=== PATIENT | male | born 1940 | race Caucasian/White ===

== ENCOUNTER → 2017-04-24 | Outpatient (CLI) | payer OTHER ==
[~2017-04-24] MED LIST: ALL300 PO; ATEN50TA8 PO; LEVO100T48 PO; POTTAB2; RANI300T2 PO
== END | disposition home or self-care (01) ==
LOC: C.PATHSPEC 16:43
PROVIDERS: ATTEND Urology
DX: C67.9 Malignant neoplasm of bladder, unspecified (principal)

== ENCOUNTER → 2018-04-16 | Outpatient (CLI) | payer OTHER | END | disposition home or self-care (01) | LOC: C.LABSPEC 17:06 → C.PATHSPEC 17:09 | PROVIDERS: ATTEND Urology | DX: C67.9 Malignant neoplasm of bladder, unspecified (principal) ==

== ENCOUNTER 2021-12-02 10:31 | Inpatient (IN) ==
[2021-12-02] MEDS ORDERED: SODIUM CHLORIDE 0.9% 1000ML 500 ML IV ONE (10:47)
--- NOTE | 2021-12-02 10:49 | Emergency Department Note ---
Impression & Plan Acute cholecystitis, Abdominal pain, Leukocytosis ED Provider Note NAME: YANET ESTEVEZ AGE: 81 SEX: M : 1940 ARRIVES VIA: Walk-In INFORMANT: Patient ED PROVIDER(S): Chalo Boudreaux DO CHIEF COMPLAINT: abdominal pain HPI: Patient is an 81-year-old male with a past medical history of hypertension and bladder cancer that presents to the ER for epigastric abdominal pain which has been present since Sunday. He notes he has had this off and on previously. He was having some and vomiting. He has not really been able to eat since earlier this week. Has been keeping down some fluids. Denies any recorded fevers. Pain is about a 4 out of 10 and goes through to the back. No chest pain or shortness of breath. No dysuria, urgency, or frequency. He followed up with his PCP and had an ultrasound and blood work which showed retained stones in the duct per the patient. He was sent in for further evaluation by his PCP. ROS: See above HPI for pertinent positives & negatives. A total of 10 systems reviewed and were otherwise negative. PAST MEDICAL HISTORY:See Below PAST SURGICAL HISTORY:See Below FAMILY HISTORY:See Below SOCIAL HISTORY:See Below HOME MEDICATIONS:See Below ALLERGIES:See Below VITALS:See Below PHYSICAL EXAMINATION: GENERAL: Sitting up in bed, alert, well appearing, well nourished, no distress, non-toxic EYE EXAM: normal conjunctiva. OROPHARYNX: no exudate, no erythema, lips, buccal mucosa, and tongue normal and mucous membranes are moist NECK: supple, no nuchal rigidity, no adenopathy, non-tender LUNGS: Clear to auscultation. Normal chest wall mechanics HEART: no murmurs, S1 normal and S2 normal ABDOMEN: abdomen soft, non-tender, normo-active bowel sounds, no masses, no rebound or guarding. UPPER EXTREMITIES: upper extremities are grossly normal. LOWER EXTREMITIES: No pitting edema. NEURO EXAM: Normal sensorium, cranial nerves II-XII grossly intact, normal speech, no gross weakness of arms, no gross weakness of legs. MEDICAL DECISION MAKING: Patient is a 1-year-old male who presents ER for epigastric/right upper quadrant abdominal pain which is been present earlier this week. He was referred in by his PCP. IV was established blood work was obtained. Labs show mild leukocyto sis of nearly 13,000. No significant anemia. BMP with mild acute kidney injury with a creatinine 1.7 up from baseline of 1.5. LFTs were unremarkable. T bili slightly up at 1.6. Troponin negative and lipase unremarkable. UA was contaminated. Covid was negative. CT abdomen pelvis shows acute cholecystitis. He was updated bedside. Discussed with Homero Mooney recommended admission to medicine. Patient was given IV Rocephin. He was given IV Tylenol for pain admit to the hospitalist for GEN surge consult/OR. Patient was given IV fluids as well. Triage Nursing notes reviewed. Limited review of prior medical records performed Vital Signs: reviewed and remarkable for no significant abnormalities Differential diagnosis: Differential diagnoses includes but is not limited to gastritis, peptic ulcer disease, GERD, gallbladder disease, pancreatitis, small bowel obstruction, acute coronary syndrome, pericarditis, ischemic bowel, irritable bowel disease, irritable bowel syndrome, appendicitis, diverticulitis, malignancy, hernia, uri nary tract infection, torsion, [/ectopic (if female)], perforation, trauma, infectious. ER treatment provided: See below Diagnostics interpreted by me: ECG: [none] Cardiac Monitoring: An order was placed for continuous cardiac monitoring. The monitor shows a rate of 70 with sinus rhythm. Laboratory studies: As stated above and show below. Imaging studies: CT abdomen pelvis shows acute cholecystitis Consultation(s): Discussed with Keyur from general surgery who recommended admission to internal medicine Discussed with Prabha from [facility] service for admission Procedures: none Critical Care: None Past Med/Surg History Medical History Carcinoma of bladder Gout Hearing loss Peripheral vascular disease Venous thrombosis of lower extremity Surgical History H/O cystoscopy H/O sinus surgery History of inguinal hernia repair, bilateral History of nephrectomy, left Family History Unknown FHx: bladder cancer History of nephrolithiasis Cancer Social History Smoking Status: Never smoker Hx Alcohol Use: No Preferred Language: [place] marital status: current occupational status: retired Feels Safe at Home: Yes Allergies Allergies Allergy/AdvReac Type Severity Reaction Status Date / Time Cipro Allergy Unknown "EYES Verified 11/06/12 08:56 ITCHY AND BURNING" ciprofloxacin Allergy Unknown "EYES Verified 12/02/21 13:33 ITCHY AND BURNING" guaifenesin Allergy Unknown Verified 12/02/21 13:33 Penicillins Allergy Unknown Verified 12/02/21 13:33 pseudoephedrine Allergy Unknown Verified 12/02/21 13:33 Home Meds Home Medications Medication Instructions Recorded Confirmed allopurinol 300 mg tablet 300 mg PO QAM 03/04/20 12/02/21 atenolol 50 mg tablet 50 mg PO QAM 03/04/20 12/02/21 levothyroxine 112 mcg tablet 112 mcg PO QAM 03/04/20 12/02/21 (Levoxyl) pantoprazole 40 mg tablet,delayed 40 mg PO QAM 12/02/21 12/02/21 release Results & Data (ED) Vital Signs Vital Signs - 24 hr 12/02/21 10:32 12/02/21 10:47 12/02/21 12:32 Temperature 36.7 C Temperature Source Oral Pulse Rate 73 70 Pulse Rate [Finger] 78 67 Respiratory Rate 16 16 16 Blood Pressure 99/86 L Blood Pressure [Left Arm] 99/86 L 141/64 H Blood Pressure Mean 90 Blood Pressure Mean [Left Arm] 90 89 Pulse Oximetry 92 92 98 Oxygen Delivery Method Room Air Room Air Sepsis Recent Fever Within 48 Hours No Sepsis New/Unexplained Change in Mental Status No Sepsis Action Taken by Nursing No Action Required 12/02/21 14:00 Temperature Temperature Source Pulse Rate Pulse Rate [Finger] 70 Respiratory Rate 18 Blood Pressure Blood Pressure [Left Arm] 112/57 L Blood Pressure Mean Blood Pressure Mean [Left Arm] 75 Pulse Oximetry 97 Oxygen Delivery Method Sepsis Recent Fever Within 48 Hours Sepsis New/Unexplained Change in Mental Status Sepsis Action Taken by Nursing Laboratory Data Result diagrams: 12/02/21 11:05 12/02/21 11:05 Lab Results 12/02/21 12/02/21 12/02/21 Range/Units 11:05 11:05 11:05 WBC 12.95 H (4.8-10.8) K/uL RBC 5.22 (4.7-6.1) M/uL Hgb 15.2 (14.0-18.0) g/dL Hct 45.6 (42-52) % MCV 87.4 (80-100) fL MCH 29.1 (25-34) pg MCHC 33.3 (32-36) g/dL RDW Std Deviation 46.3 (36.4-46.3) fL RDW Coeff of Maude 14.5 (11.5-14.5) % Plt Count 117 L (130-400) K/uL MPV 10.4 (7.4-10.4) fL Immature Gran % (Auto) 0.2 % Neut % (Auto) 79.8 % Lymph % (Auto) 9.4 % [place] % (Auto) 10.1 % Eos % (Auto) 0.3 % Baso % (Auto) 0.2 % Neut # (Auto) 10.34 H (1.4-6.5) K/uL Lymph # (Auto) 1.22 (1.2-3.4) K/uL [place] # (Auto) 1.31 H (0.11-0.59) K/uL Eos # (Auto) 0.04 (0-0.5) K/uL Baso # (Auto) 0.02 (0-0.2) K/uL Immature Gran # (Auto) 0.02 (0.00-0.02) K/uL Sodium 138 (136-145) mmol/L Potassium 4.1 (3.5-5.1) mmol/L Chloride 102 (98-107) mmol/L Carbon Dioxide 28 (21-32) mmol/L Anion Gap 8 (3-11) BUN 25 H (6-23) mg/dl Creatinine 1.73 H (0.6-1.4) mg/dl Est Cr Clr Drug Dosing 35.1 ml/min Est GFR ( Amer) 42.0 ml/min Est GFR (Non-Af Amer) 36.2 ml/min BUN/Creatinine Ratio 14.5 (10-20) Glucose 112 H (70-99(Fasting)) mg/dl Calcium 9.3 (8.5-10.1) mg/dl Total Bilirubin 1.6 H (0.2-1.0) mg/dl AST 22 (13-39) U/L ALT 21 (7-52) U/L Alkaline Phosphatase 69 (34-104) U/L Troponin I (0-0.04) ng/ml Total Protein 6.8 (6.0-8.3) gm/dl Albumin 4.0 (3.4-5.0) gm/dl Globulin 2.8 (2.5-4.0) gm/dl Albumin/Globulin Ratio 1.4 (0.9-2) Lipase 18 (11-82) U/L Urine Color [place]ount Urine Appearance Clear (Clear) Urine pH 5.0 (4.5-7.5) Ur Specific [place] 1.021 (1.000-1.030) Urine Protein Trace H (Negative) Urine Glucose (UA) Negative (Negative) Urine Ketones Trace H (Negative) Urine Blood Negative (Negative) Urine Nitrite Negative (Negative) Urine Bilirubin 1+ H (Negative) Urine Urobilinogen Negative (Negative) Ur Leukocyte Esterase Trace H (Negative) Urine WBC (Auto) 1-5 (0-5) /hpf Urine RBC (Auto) 0-4 (0-4) /hpf U Hyaline Cast (Auto) 1-5 (0-5) /lpf U Epithel Cells (Auto) 10-20 H (0-5) /lpf Urine Bacteria (Auto) Negative (Negative) SARS-CoV-2, RNA, NAAT (NEGATIVE) 12/02/21 12/02/21 Range/Units 11:05 11:09 WBC (4.8-10.8) K/uL RBC (4.7-6.1) M/uL Hgb (14.0-18.0) g/dL Hct (42-52) % MCV (80-100) fL MCH (25-34) pg MCHC (32-36) g/dL RDW Std Deviation (36.4-46.3) fL RDW Coeff of Maude (11.5-14.5) % Plt Count (130-400) K/uL MPV (7.4-10.4) fL Immature Gran % (Auto) % Neut % (Auto) % Lymph % (Auto) % [place] % (Auto) % Eos % (Auto) % Baso % (Auto) % Neut # (Auto) (1.4-6.5) K/uL Lymph # (Auto) (1.2-3.4) K/uL [place] # (Auto) (0.11-0.59) K/uL Eos # (Auto) (0-0.5) K/uL Baso # (Auto) (0-0.2) K/uL Immature Gran # (Auto) (0.00-0.02) K/uL Sodium (136-145) mmol/L Potassium (3.5-5.1) mmol/L Chloride (98-107) mmol/L Carbon Dioxide (21-32) mmol/L Anion Gap (3-11) BUN (6-23) mg/dl Creatinine (0.6-1.4) mg/dl Est Cr Clr Drug Dosing ml/min Est GFR ( Amer) ml/min Est GFR (Non-Af Amer) ml/min BUN/Creatinine Ratio (10-20) Glucose (70-99(Fasting)) mg/dl Calcium (8.5-10.1) mg/dl Total Bilirubin (0.2-1.0) mg/dl AST (13-39) U/L ALT (7-52) U/L Alkaline Phosphatase (34-104) U/L Troponin I < 0.03 (0-0.04) ng/ml Total Protein (6.0-8.3) gm/dl Albumin (3.4-5.0) gm/dl Globulin (2.5-4.0) gm/dl Albumin/Globulin Ratio (0.9-2) Lipase (11-82) U/L Urine Color Urine Appearance (Clear) Urine pH (4.5-7.5) Ur Specific [place] (1.000-1.030) Urine Protein (Negative) Urine Glucose (UA) (Negative) Urine Ketones (Negative) Urine Blood (Negative) Urine Nitrite (Negative) Urine Bilirubin (Negative) Urine Urobilinogen (Negative) Ur Leukocyte Esterase (Negative) Urine WBC (Auto) (0-5) /hpf Urine RBC (Auto) (0-4) /hpf U Hyaline Cast (Auto) (0-5) /lpf U Epithel Cells (Auto) (0-5) /lpf Urine Bacteria (Auto) (Negative) SARS-CoV-2, RNA, NAAT NEGATIVE (NEGATIVE) Administered Medications Metronidazole (Flagyl) 500 mg in 100 mls @ 100 mls/hr IV Q8H NO Stop: 12/12/21 14:59 Last Admin: 12/02/21 14:45 Dose: 100 mls/hr Documented by: [id number] Discontinued Medications Acetaminophen (Acetaminophen 1000 Mg/100 Ml Iv) 1,000 mg IV NOW STA Stop: 12/02/21 13:45 Last Admin: 12/02/21 13:51 Dose: 1,000 mg Documented by: [id number] Sodium Chloride (Nss 1000ml) 500 mls @ 999 mls/hr IV .Q31M ONE Stop: 12/02/21 11:17 Last Infusion: 12/02/21 11:35 Dose: 0 mls/hr Documented by: [id number] Admin: 12/02/21 11:04 Dose: 999 mls/hr Documented by: [id number] Ceftriaxone Sodium (Rocephin) 1,000 mg in 50 mls @ 100 mls/hr IV NOW STA Stop: 12/02/21 13:28 Last Infusion: 12/02/21 13:51 Dose: 0 mls/hr Documented by: [id number] Admin: 12/02/21 13:04 Dose: 100 mls/hr Documented by: [id number] Imaging Data Radiologist's Impression: Abdomen/Pelvis CT 12/02/21 11:35 CT OF THE ABDOMEN AND PELVIS WITHOUT CONTRAST CLINICAL HISTORY: Epigastric pain. COMPARISON STUDY: CT of the chest, abdomen and pelvis November 29, 2009. TECHNIQUE: Axial images of the abdomen and pelvis were obtained without IV contrast. Images were reviewed in the axial, sagittal, and coronal planes. Automated exposure control was utilized for the study. A dose lowering technique was utilized adhering to the principles of ALARA. FINDINGS: Lung bases are unremarkable. A small hiatal hernia is present. No pneumatosis, free air or portal venous gas is present. Moderate pericholecystic infiltration is noted. Gallbladder is mildly distended. There is no biliary or pancreatic ductal dilatation. A punctate calcification within the pancreatic head is noted. No gas within the gallbladder wall is noted. Hepatic steatosis is noted. Unenhanced images of the spleen, adrenal glands and right kidney are unremarkable. Left kidney is not visualized. The appendix is normal. Colonic diverticulosis is noted without evidence acute diverticulitis. A portion of the sigmoid colon extends into a left inguinal hernia. Fat-containing right inguinal hernia is present. Prostate is enlarged, measuring 5.8 cm in transverse dimension. No abdominal or pelvic lymphadenopathy is present. No acute fracture or suspicious lesion within the visualized skeletal structures. IMPRESSION: Findings consistent with acute cholecystitis. Moderate perichole cystic infiltration. Surgical consultation is recommended. ACT 112: Negative or not required by law. Electronically signed by: Wing Cole M.D. 12/02/2021 12:26 PM Chest X-Ray 12/02/21 14:25 XR chest 1V portable CLINICAL HISTORY: Preoperative evaluation. COMPARISON STUDY: Chest radiograph November 06, 2012. FINDINGS: There is mild elevation of the right hemidiaphragm. Lungs are clear. There is no pneumothorax or pleural effusion. Cardiac size is at the upper limits of normal. Mediastinal contours are normal. There is no evidence for pulmonary edema. IMPRESSION: No acute cardiopulmonary findings. ACT 112: Negative or not required by law. Electronically signed by: Wing Cole M.D. 12/02/2021 2:49 PM Discharge Plan Visit Data Chief Complaint: Referred by Doctor Stated Complaint: DR PARIS CALLED, HAS GALLSTONES, BACK PAIN ED Provider: Chalo Boudreaux Discharge Problem: Acute cholecystitis, Abdominal pain, Leukocytosis Forms Stand Alone Forms: [facility] [employer] Prescriptions Prescriptions: No Action allopurinol 300 mg tablet 300 mg PO QAM RF: 0 atenolol 50 mg tablet 50 mg PO QAM RF: 0 levothyroxine [Levoxyl] 112 mcg tablet 112 mcg PO QAM RF: 0 pantoprazole 40 mg tablet,delayed release (DR/EC) 40 mg PO QAM RF: 0 Referrals Referrals: Keanu Paris DO [Primary Care Provider] - Discharge Problem: Abdominal pain Qualifiers: Abdominal location: unspecified location Qualified Code(s): R10.9 - Unspecified abdominal pain Leukocytosis Qualifiers: Leukocytosis type: unspecified Qualified Code(s): D72.829 - Elevated white blood cell count, unspecified
[2021-12-02 11:20] LABS: Basophils # (auto) 0.02 K/uL (0-0.2); Basophils % (auto) 0.2 %; Eosinophils # (auto) 0.04 K/uL (0-0.5); Eosinophils % (auto) 0.3 %; Hematocrit (blood only) 45.6 % (42-52); Hemoglobin 15.2 g/dL (14.0-18.0); Immature Granulocytes # (auto) 0.02 K/uL (0.00-0.02); Immature Granulocytes % (auto) 0.2 %; Lymphocytes # (auto) 1.22 K/uL (1.2-3.4); Lymphocytes % (auto) 9.4 %; Mean Corpuscular Hemoglobin 29.1 pg (25-34); Mean Corpuscular Hgb Conc 33.3 g/dL (32-36); Mean Corpuscular Volume 87.4 fL (80-100); Mean Platelet Volume 10.4 fL (7.4-10.4); Monocytes # (auto) 1.31 K/uL (0.11-0.59); Monocytes % (auto) 10.1 %; Neutrophils # (auto) 10.34 K/uL (1.4-6.5); Neutrophils % (auto) 79.8 %; Platelet Count 117 K/uL (130-400); RDW Coefficient of Variation 14.5 % (11.5-14.5); RDW Standard Deviation 46.3 fL (36.4-46.3); Red Blood Count 5.22 M/uL (4.7-6.1); White Blood Count 12.95 K/uL (4.8-10.8)
[2021-12-02 11:33] LABS: Appearance Urine Clear (Clear); Bacteria Urine Automated Negative (Negative); Blood Urine Negative (Negative); Color Urine Orange; Glucose Urine UA Negative (Negative); Ketones Urine Trace (Negative); Leukocyte Esterase Urine Trace (Negative); Nitrite Urine Negative (Negative); Protein Urine Trace (Negative); RBC Urine Automated 0-4 /hpf (0-4); Specific Gravity Urine 1.021 (1.000-1.030); Urobilinogen Urine Negative (Negative)
[2021-12-02 11:35] LABS: Bilirubin Urine 1+ (Negative)
[2021-12-02 11:51] LABS: Albumin Globulin Ratio 1.4 (0.9-2); BUN Creatinine Ratio 14.5 (10-20); Bilirubin,Total 1.6 mg/dl (0.2-1.0); Calcium 9.3 mg/dl (8.5-10.1); Creatinine Clr Calc Pharmacy 35.1 ml/min; Est GFR (Non-African American) 36.2 ml/min; Globulin 2.8 gm/dl (2.5-4.0); Potassium 4.1 mmol/L (3.5-5.1); Total Protein 6.8 gm/dl (6.0-8.3)
--- NOTE | 2021-12-02 12:27 | CT Scan Report ---
CT OF THE ABDOMEN AND PELVIS WITHOUT CONTRAST CLINICAL HISTORY: Epigastric pain. COMPARISON STUDY: CT of the chest, abdomen and pelvis November 29, 2009. TECHNIQUE: Axial images of the abdomen and pelvis were obtained without IV contrast. Images were revi ewed in the axial, sagittal, and coronal planes. Automated exposure control was utilized for the santana dy. A dose lowering technique was utilized adhering to the principles of ALARA. FINDINGS: Lung bases are unremarkable. A small hiatal hernia is present. No pneumatosis, free air or portal venous gas is present. Moderate pericholecystic infiltration is noted. Gallbladder is mildly d istended. There is no biliary or pancreatic ductal dilatation. A punctate calcification within the pa ncreatic head is noted. No gas within the gallbladder wall is noted. Hepatic steatosis is noted. Unen hanced images of the spleen, adrenal glands and right kidney are unremarkable. Left kidney is not vis ualized. The appendix is normal. Colonic diverticulosis is noted without evidence acute diverticuliti s. A portion of the sigmoid colon extends into a left inguinal hernia. Fat-containing right inguinal hernia is present. Prostate is enlarged, measuring 5.8 cm in transverse dimension. No abdominal or pe lvic lymphadenopathy is present. No acute fracture or suspicious lesion within the visualized skeleta l structures. IMPRESSION: Findings consistent with acute cholecystitis. Moderate pericholecystic infiltration. Rolf gical consultation is recommended. ACT 112: Negative or not required by law. Electronically signed by: Wing Cole M.D. 12/02/2021 12:26 PM
[2021-12-02] MEDS ORDERED: cefTRIAXone SODIUM 1,000 MG/50 ML BAG IV STA (12:59)
[2021-12-02] MEDS ORDERED: ACETAMINOPHEN 1000 MG/100 ML IV IV STA (13:44)
--- NOTE | 2021-12-02 14:28 | History & Physical Report ---
Date of Service December 02, 2021 Assessment & Plan (1) Acute cholecystitis: (2) Abdominal pain: (3) Hypertension: (4) History of bladder cancer: (5) Chronic idiopathic thrombocytopenia: (6) Hx of deep venous thrombosis: Plan: This is an 81-year-old male who has significant past medical history of HTN, HLD, hypothyroidism, CKD stage III, GERD, gout, history of ITP with chronic thrombocytopenia, history of DVT, history of bladder cancer status post removal who presents to ED secondary to off-and-on abdominal pain x1 week. Acute cholecystitis Abdominal pain admit to med tele consult surgery IV LR @ 125/hr antiemetics, analgesia IV Rocephin and IV flagyl - convert to po flagyl when able to tolerate po discussed with surgery who is recommending consult GI service No surgery today, will make npo after midnight HTN continue atenolol with parameters Chronic ITP plt stable, 117 monitor CKD-3 cr 1.75 baseline 1.6 gentle IVF, monitor avoid nephrotoxic agents DVT ppx/hx of DVT after bladder surgery: SCD/TEDS for now, post operatively initiate chemical ppx but monitor plts Dispo: medtele Full code PCP: [place] Pt was seen and examined in collaboration with Dr. Friend, please see addendum History of Present Illness Chief Complaint: Abdominal pain off and on x 1 week. Primary Care Provider: Keanu Paris, DO This is an 81-year-old male who has significant past medical history of HTN, HLD, hypothyroidism, CKD stage III, GERD, gout, history of ITP with chronic thrombocytopenia, history of DVT, history of bladder cancer status post removal who presents to ED secondary to off-and-on abdominal pain x1 week. He complains of right upper quadrant and epigastric abdominal pain that comes and goes, mostly after fatty meals. Pain radiates to the middle of his back and describes it as a, "stabbing," pain is worse. It is worse he rates pain as a 10 out of 10. Currently he is in 3 out of 10 pain. Pain typically will resolve on its own. Unfortunately he woke up this morning at approximately 3 AM with severe pain radiating to his back. He was nauseated and Had a few episodes of bilious vomiting. He has had poor intake for the past 2 days due to discomfort. He com plains of feeling chilled but denies any documented fever or sweats. He denies any lightheadedness, dizziness, chest pain, shortness of breath, cough, URI symptoms, diarrhea, melena, hematochezia, gloria colored stools. Despite H he is very active and still hunts and fishes. He admits to being able to ambulate 1 flight of stairs without getting short of breath or chest pain. In ED patient remained hemodynamically stable. CT abdomen pelvis confirmed acute cholecystitis. He did have elevated total bilirubin at 1.6 but otherwise LFTs WNL. His BUN/creatinine was 25 and 1.73. He saw PCP yesterday for above sx. Lab work was obtained which showed leukocytosis, US of abd revealed cholelithiasis and hepatic steatosis. CBD measured 4mm. Allergies Allergy/AdvReac Type Severity Reaction Status Date / Time Cipro Allergy Unknown "EYES Verified 11/06/12 08:56 ITCHY AND BURNING" ciprofloxacin Allergy Unknown "EYES Verified 12/02/21 13:33 ITCHY AND BURNING" guaifenesin Allergy Unknown Verified 12/02/21 13:33 Penicillins Allergy Unknown Verified 12/02/21 13:33 pseudoephedrine Allergy Unknown Verified 12/02/21 13:33 Home Medications Medication Instructions Recorded Confirmed Type allopurinol 300 mg tablet 300 mg PO QAM 03/04/20 12/02/21 History atenolol 50 mg tablet 50 mg PO QAM 03/04/20 12/02/21 History levothyroxine 112 mcg tablet 112 mcg PO QAM 03/04/20 12/02/21 History (Levoxyl) pantoprazole 40 mg tablet,delayed 40 mg PO QAM 12/02/21 12/02/21 History release Past Med/Surg History Medical History Carcinoma of bladder Gout Hearing loss Peripheral vascular disease Venous thrombosis of lower extremity Surgical History H/O cystoscopy H/O sinus surgery History of inguinal hernia repair, bilateral History of nephrectomy, left Family History Unknown FHx: bladder cancer History of nephrolithiasis Cancer Social History Smoking Status: Never smoker Hx Alcohol Use: No Hx Substance Use: No Preferred Language: Angolan Communication Ability: Effective Mobile Architect Required: No Beliefs That Will Affect Care: None marital status: Current Living Situation: Spouse and Family current occupational status: retired Other Information That Helps Us Care for You: No Feels Safe at Home: Yes Safety Concerns: Feels Safe At This Time Assistive Devices: Glasses Review of Systems Review of Systems: All systems reviewed & are unremarkable except as noted in HPI & below Physical Exam Physical Exam: Constitutional: WD/WN, vitals as above, NAD, sitting up in bed, pleasant, conversing easily Head: Normocephalic, Atraumatic Eyes: PERRL, conjunctivae normal, anicteric sclerae ENMT: external ear and nose normal, oropharynx normal Neck: trachea midline, no thyromegaly normal visual inspection Respiratory: normal respiratory effort, lungs clear to auscultation, no wheeze, rales, rhonchi. Normal insp/exp effort, no accessory muscle use Cardiovascular: RRR, no murmur, no edema Vessels: no JVD or carotid bruit Chest: normal inspection of chest Abdomen: normal bowel sounds, soft, tender RUQ, no hepatosplenomegaly Musculoskeletal: no cyanosis or clubbing, extremities motor strength 5/5 Skin: no rashes, warm and dry normal turgor Neurologic: PERRL, EOMI, accommodation nl, no face palsy, no dysarthria CN's II-XI intact bilaterally and moves all extremities Psychiatric: A+Ox3, euthymic affect Lymphatic: no cervical or axillary lymphadenopathy : deferred Results & Data Results & Data ([facility]) Vital Signs (Past 12 Hours) Vital Signs Temp Pulse Pulse Resp BP BP Pulse Ox 12/02/21 12:32 67 16 141/64 H 98 12/02/21 10:47 70 16 92 12/02/21 10:32 36.7 C 73 78 16 99/86 L 99/86 L 92 Diagnostic Findings Abdomen/Pelvis CT 12/02/21 11:35 CT OF THE ABDOMEN AND PELVIS WITHOUT CONTRAST CLINICAL HISTORY: Epigastric pain. COMPARISON STUDY: CT of the chest, abdomen and pelvis November 29, 2009. TECHNIQUE: Axial images of the abdomen and pelvis were obtained without IV contrast. Images were reviewed in the axial, sagittal, and coronal planes. Automated exposure control was utilized for the study. A dose lowering technique was utilized adhering to the principles of ALARA. FINDINGS: Lung bases are unremarkable. A small hiatal hernia is present. No pneumatosis, free air or portal venous gas is present. Moderate pericholecystic infiltration is noted. Gallbladder is mildly distended. There is no biliary or pancreatic ductal dilatation. A punctate calcification within the pancreatic head is noted. No gas within the gallbladder wall is noted. Hepatic steatosis is noted. Unenhanced images of the spleen, adrenal glands and right kidney are unremarkable. Left kidney is not visualized. The appendix is normal. Colonic diverticulosis is noted without evidence acute diverticulitis. A portion of the sigmoid colon extends into a left inguinal hernia. Fat-containing right inguinal hernia is present. Prostate is enlarged, measuring 5.8 cm in transverse dime nsion. No abdominal or pelvic lymphadenopathy is present. No acute fracture or suspicious lesion within the visualized skeletal structures. IMPRESSION: Findings consistent with acute cholecystitis. Moderate pericholecystic infiltration. Surgical consultation is recommended. ACT 112: Negative or not required by law. Electronically signed by: Wing Cole M.D. 12/02/2021 12:26 PM Medications Administered Medication List Discontinued Medications Acetaminophen (Acetaminophen 1000 Mg/100 Ml Iv) 1,000 mg IV NOW STA Stop: 12/02/21 13:45 Last Admin: 12/02/21 13:51 Dose: 1,000 mg Documented by: [id number] Sodium Chloride (Nss 1000ml) 500 mls @ 999 mls/hr IV .Q31M ONE Stop: 12/02/21 11:17 Last Infusion: 12/02/21 11:35 Dose: 0 mls/hr Documented by: [id number] Admin: 12/02/21 11:04 Dose: 999 mls/hr Documented by: [id number] Ceftriaxone Sodium (Rocephin) 1,000 mg in 50 mls @ 100 mls/hr IV NOW STA Stop: 12/02/21 13:28 Last Infusion: 12/02/21 13:51 Dose: 0 mls/hr Documented by: [id number] Admin: 12/02/21 13:04 Dose: 100 mls/hr Documented by: [id number] ECG Rate (beats per minute): 61 Rhythm: normal sinus Findings: + 1st degree AV block COVID-19 Results Results COVID-19 Adm Lab Results: RBC 5.22 M/uL (4.7-6.1) 12/02/21 WBC 12.95 K/uL (4.8-10.8) H 12/02/21 Hgb 15.2 g/dL (14.0-18.0) 12/02/21 Hct 45.6 % (42-52) 12/02/21 Plt Count 117 K/uL (130-400) L 12/02/21 Neutrophils (%) (Auto) 79.8 % 12/02/21 Lymphocytes (%) (Auto) 9.4 % 12/02/21 Monocytes # (Auto) 1.31 K/uL (0.11-0.59) H 12/02/21 Eosinophils # (Auto) 0.04 K/uL (0-0.5) 12/02/21 Immature Granulocyte % (Auto) 0.2 % 12/02/21 Neutrophils # (Auto) 10.34 K/uL (1.4-6.5) H 12/02/21 Lymphocytes # (Auto) 1.22 K/uL (1.2-3.4) 12/02/21 Monocytes # (Auto) 1.31 K/uL (0.11-0.59) H 12/02/21 Eosinophils # (Auto) 0.04 K/uL (0-0.5) 12/02/21 Basophils # (Auto) 0.02 K/uL (0-0.2) 12/02/21 Immature Granulocyte # (Auto) 0.02 K/uL (0.00-0.02) 12/02/21 Na 138 mmol/L (136-145) 12/02/21 K 4.1 mmol/L (3.5-5.1) 12/02/21 Cl 102 mmol/L (98-107) 12/02/21 CO2 28 mmol/L (21-32) 12/02/21 Anion Gap 8 (3-11) 12/02/21 BUN 25 mg/dl (6-23) H 12/02/21 Creatinine 1.73 mg/dl (0.6-1.4) H 12/02/21 BUN/Creatinine Ratio 14.5 (10-20) 12/02/21 Glucose Level 112 mg/dl (70-99(Fasting)) H 12/02/21 Ca 9.3 mg/dl (8.5-10.1) 12/02/21 Total Bilirubin 1.6 mg/dl (0.2-1.0) H 12/02/21 AST/SGOT 22 U/L (13-39) 12/02/21 ALT/SGPT 21 U/L (7-52) 12/02/21 Alkaline Phosphatase 69 U/L (34-104) 12/02/21 Total Protein 6.8 gm/dl (6.0-8.3) 12/02/21 Albumin 4.0 gm/dl (3.4-5.0) 12/02/21 Globulin 2.8 gm/dl (2.5-4.0) 12/02/21 Albumin/Globulin Ratio 1.4 (0.9-2) 12/02/21 Troponin I < 0.03 ng/ml (0-0.04) 12/02/21 SARS-CoV-2, RNA, NAAT NEGATIVE (NEGATIVE) 12/02/21 Chest X-Ray 12/02/21 Code Status & VTE Plan Code Status FULL CODE VTE Prophylaxis Plan VTE Prophylaxis will be ordered: Yes Supervising Physician Co-Signing Physician Notes Care coordinated with Prabha Simmons PA-C. Agree with above note. Patient seen and examined. Please refer to her notes for full details. Vital signs reviewed. Physical exam: General exam: Alert and oriented. Not in acute distress. CVS: S1 and S2 heard, regular rate and rhythm, no murmurs. RS: Clear to auscultation, no wheezing or crackles. ABD: Soft, bowel sounds present, mild epigastric tenderness?, no distention. RESEARCH LABORATORY SPECIALIST: Nonfocal. EXT: No edema, no erythema. Labs: Reviewed. Assessment and plan: 81M presents with week of on and off abdominal pain But last night got severe in epigastric region radiating to back associated with nausea. Denies fevers. No chest pain or sob. Hemodynamics stable. Imaging studies shows cholecystitis. Acute cholecystitis on iv rocephin, flagyl npo fluids pain control surgery and GI on board Surgery vs ercp based on mrcp results monitor in medical floor. HTN on atenolol will monitor Chronic ITI platelets 117 will monitor. Other diagnosis and plan of care as per Prabha Simmons PA-C. Sukhwinder schwab MD.
[2021-12-02] MEDS: metroNIDAZOLE 500 MG/100 ML BAG IV SCH ×2 (14:45→22:12)
--- NOTE | 2021-12-02 14:51 | XRay Report ---
XR chest 1V portable CLINICAL HISTORY: Preoperative evaluation. COMPARISON STUDY: Chest radiograph November 06, 2012. FINDINGS: There is mild elevation of the right hemidiaphragm. Lungs are clear. There is no pneumothor ax or pleural effusion. Cardiac size is at the upper limits of normal. Mediastinal contours are albert l. There is no evidence for pulmonary edema. IMPRESSION: No acute cardiopulmonary findings. ACT 112: Negative or not required by law. Electronically signed by: Wing Cole M.D. 12/02/2021 2:49 PM
--- NOTE | 2021-12-02 15:58 | Gastrointestinal Consultation ---
Date of Consultation December 02, 2021 Supervising Physician Co-Signing Physician Notes I performed a history and physical examination of the patient today, including specifically on physical exam - soft abdomen. I have discussed the patient's management with the advanced practitioner. Please refer to the nurse practitioner's note for the documented findings and plan of care. patient with gallstones and CT scan findings of acute cholecystitis, his AST/ALT are normal with no biliary ductal dilation. He is low probability for choledocholithiasis hence will obtain MRCP and follow up LFTs. If MRCP negative then should proceed with Lap elo tomorrow. If inconclusive then may add IOC intraoperatively. If LFTs rise or MRCP shows a choledocholithiasis then will arrange ERCP if needed. History of Present Illness Reason for Consultation: Acute cholecystitis, elevated Tbili Requesting Physician: Dr. Sukhwinder Friend Attending Physician: Dr. Darrion Matamoros History of Present Illness Pt is a 81 yo male, who was referred by his PCP (Dr. Paris) to the ED today for c/o epigastric abd pain symptoms. He reports the epigastric pain had been going on for few weeks but worsen in the last few days. Pain radiates straight to back. He does have the pain hours after eating. + nausea, no vomiting. He denies bowel habit changes. In the last 2 days had only been able to drink broth and water. Outpt eval showed normal LFTs initially and US w findings of gallstones, CBD of 4mm, hepatic steatosis. Labs today showed leukocytosis, LFTs showed elevated Tbili 1.6, AST/ALT 22/21, Alk phos 69. CT abd/pelvis wo contrast showed cholecystitis. ASSESSMENT/PLAN: Pt is a 81 yo male w symptoms of epigastric abd pain radiating to back, nausea wo vomiting found to have gallstones in outpt u/s and cholecystitis on today's non contrasted CT imaging. Tbili is elevated to 1.6 today w leukocytosis. - NPO - IVF support - IV antibiotics - Surgery consulted - Will discuss with Dr. Matamoros Allergies Allergy/AdvReac Type Severity Reaction Status Date / Time Cipro Allergy Unknown "EYES Verified 11/06/12 08:56 ITCHY AND BURNING" ciprofloxacin Allergy Unknown "EYES Verified 12/02/21 13:33 ITCHY AND BURNING" guaifenesin Allergy Unknown Verified 12/02/21 13:33 Penicillins Allergy Unknown Verified 12/02/21 13:33 pseudoephedrine Allergy Unknown Verified 12/02/21 13:33 Home Medications Medication Instructions Recorded Confirmed Type allopurinol 300 mg tablet 300 mg PO QAM 03/04/20 12/02/21 History atenolol 50 mg tablet 50 mg PO QAM 03/04/20 12/02/21 History levothyroxine 112 mcg tablet 112 mcg PO QAM 03/04/20 12/02/21 History (Levoxyl) pantoprazole 40 mg tablet,delayed 40 mg PO QAM 12/02/21 12/02/21 History release Patient History Medical History Carcinoma of bladder Gout Hearing loss Peripheral vascular disease Venous thrombosis of lower extremity Surgical History H/O cystoscopy H/O sinus surgery History of inguinal hernia repair, bilateral History of nephrectomy, left Family History Unknown FHx: bladder cancer History of nephrolithiasis Cancer Social History Smoking Status: Never smoker Hx Alcohol Use: No Hx Substance Use: No Preferred Language: [place] Citizen Communication Ability: Effective Ferris Wheel Operator Required: No Beliefs That Will Affect Care: None marital status: Current Living Situation: Spouse and Family current occupational status: retired Other Information That Helps Us Care for You: No Feels Safe at Home: Yes Safety Concerns: Feels Safe At This Time Assistive Devices: Glasses Review of Systems Review of Systems: All systems reviewed & are unremarkable except as noted in HPI & below Physical Exam Constitutional: WD/WN, vitals as above well groomed, cooperative and comfortable Eyes: PERRL, conjunctivae normal, anicteric sclerae ENMT: external ear and nose normal, oropharynx normal Respiratory: normal respiratory effort, lungs clear to auscultation Cardiovascular: RRR, no murmur, no edema Gastrointestinal (Abdomen): Soft, TTP epigastric, hyperactive BS Skin: no rashes, warm and dry no jaundice Psychiatric: A+Ox3, euthymic affect Lymphatic: no lymphedema Results & Data ([facility]) Vital Signs (Past 12 Hours) Vital Signs Temp Pulse Pulse Resp BP BP Pulse Ox 12/02/21 15:36 63 18 120/61 95 12/02/21 14:00 70 18 112/57 L 97 12/02/21 12:32 67 16 141/64 H 98 12/02/21 10:47 70 16 92 12/02/21 10:32 36.7 C 73 78 16 99/86 L 99/86 L 92
--- NOTE | 2021-12-02 16:06 | Surgery Consultation ---
Date of Consultation December 02, 2021 Assessment & Plan (1) Cholelithiasis: Symptoms more suggestive of choledocholithiasis. Equivocal CT findings for cholecystitis, mild WBC and bilirubin elevations. Trend LFTs overnight, consider GI eval. Anticipate cholecystectomy this admission, but eval further for ERCP vs IOC. Supervising Physician Co-Signing Physician Notes Patient seen and examined, labs and image reviewed, agree with above. 81-year-old male with several week history of epigastric pain that radiates to his back. This happens intermittently and seems to happen at night after eating. Had ultrasound which showed cholelithiasis with no cholecystitis and normal common bile duct. He did have slightly elevated WBC and total bilirubin. He was told to go to the ER for this. He had a CT scan which showed g allbladder distention with some inflammation concerning for cholecystitis. On exam he is afebrile with stable vitals. Abdomen nontender, mildly distended, negative Girard sign. WBC 12, T bili 1.2 but no conjugated bilirubin performed. Other LFTs and lipase are normal. I personally reviewed and interpreted the CT scan and see the gallbladder distention and mild inflammation. Cholelithiasis with possible cholecystitis versus choledocholithiasis Admitted to medicine, appreciate their management this patient GI consulted, awaiting recommendations Likely laparoscopic cholecystectomy this hospital stay Risk the procedure were discussed to include but not limited to bleeding, infection, retained stone, bile leak, damage to surrounding structures, need for future more extensive surgery, conversion open, and the risk of anesthesia N.p.o., IV fluids, antibiotics Surgery will continue to follow, call with questions or concerns History of Present Illness History of Present Illness 81 y/o male with intermittent epigastric pain for 2 weeks often around 11 PM. Has had more pain past 3-4 days, nausea, dry heaves. Saw PCP this week, referred to ER after outpatient CT. Allergies Allergy/AdvReac Type Severity Reaction Status Date / Time Cipro Allergy Unknown "EYES Verified 11/06/12 08:56 ITCHY AND BURNING" ciprofloxacin Allergy Unknown "EYES Verified 12/02/21 13:33 ITCHY AND BURNING" guaifenesin Allergy Unknown Verified 12/02/21 13:33 Penicillins Allergy Unknown Verified 12/02/21 13:33 pseudoephedrine Allergy Unknown Verified 12/02/21 13:33 Home Medications Medication Instructions Recorded Confirmed Type allopurinol 300 mg tablet 300 mg PO QAM 03/04/20 12/02/21 History atenolol 50 mg tablet 50 mg PO QAM 03/04/20 12/02/21 History levothyroxine 112 mcg tablet 112 mcg PO QAM 03/04/20 12/02/21 History (Levoxyl) pantoprazole 40 mg tablet,delayed 40 mg PO QAM 12/02/21 12/02/21 History release Patient History Medical History Carcinoma of bladder Gout Hearing loss Peripheral vascular disease Venous thrombosis of lower extremity Surgical History H/O cystoscopy H/O sinus surgery History of inguinal hernia repair, bilateral History of nephrectomy, left Family History Unknown FHx: bladder cancer History of nephrolithiasis Cancer Social History Smoking Status: Never smoker Hx Alcohol Use: No Preferred Language: [place]an marital status: current occupational status: retired Feels Safe at Home: Yes Review of Systems Constitutional: + fever and + anorexia; no chills Gastrointestinal: + abdominal pain, + bloating and + nausea; no vomiting, no change in bowel habits and no constipation Physical Exam Constitutional: WD/WN, vitals as above Respiratory: normal respiratory effort, lungs clear to auscultation Cardiovascular: RRR, no murmur, no edema Gastrointestinal (Abdomen): Inspection/Auscultation: abdomen normal to inspection; abdomen not distended Percussion/Palpation: abdomen soft; abdomen nontender (nontender RUQ, minimal epigastric) and no guarding Results & Data ([facility]) Vital Signs (Past 12 Hours) Vital Signs Temp Pulse Pulse Resp BP BP Pulse Ox 12/02/21 15:36 63 18 120/61 95 12/02/21 14:00 70 18 112/57 L 97 12/02/21 12:32 67 16 141/64 H 98 12/02/21 10:47 70 16 92 12/02/21 10:32 36.7 C 73 78 16 99/86 L 99/86 L 92 PG Care Time/CCT Total # of Minutes Spent Total Time Spent with Patient: Total time spent is greater than 50% in coordination of care (as documented) at patient's floor/unit and/or counseling patient: Coding Level of Care Code 56293 Initial Inpt Care Lvl 1 Diagnoses Cholelithiasis K80.20
[2021-12-02] MEDS: LACTATED RINGER'S 1,000 ML IV SCH (16:35)
[2021-12-02] MEDS ORDERED: MAGNESIUM HYDROXIDE SUSP 30 ML UDC PO PRN (16:37)
[2021-12-02] MEDS ORDERED: ALUMINUM/MAGNESIUM SUSP 30 ML UDC PO PRN (16:37)
[2021-12-02] MEDS ORDERED: POLYETHYLENE (MIRALAX) 17 GM PACK PO PRN (16:37)
[2021-12-02] MEDS ORDERED: ONDANSETRON INJ 2 MG/ML 2 ML VIAL IV PRN (16:37)
[2021-12-02] MEDS ORDERED: MoRPHine SULFATE 4 MG/ML 1 ML CARP\\VIAL IV PRN (16:37)
--- NOTE | 2021-12-02 21:20 | XRay Report ---
BONY ORBITS 3 VIEWS CLINICAL HISTORY: MRI clearance. FINDINGS: 3 views of the bony orbits are obtained. There is no radiodense/metallic foreign body seen in the region of the bony orbits. The bony orbits are intact as imaged. The visualized paranasal sinu ses and the mastoid air cells appear clear. The imaged calvarium appears intact. IMPRESSION: There is no radiodense/metallic foreign body seen in the region of the bony orbits. ACT 112: Negative or not required by law. Electronically signed by: Kelby Brush M.D. 12/02/2021 9:18 PM
--- NOTE | 2021-12-02 21:58 | Magnetic Resonance Report ---
MRCP CLINICAL HISTORY: Acute cholecystitis. COMPARISON STUDY: Abdominal CT dated 12/02/2021. TECHNIQUE: Abdominal MRCP is performed utilizing various T2-weighted sequences in the axial and coron al planes. IV contrast was not administered for this examination. 3-D reformats are created and asses sed. IV contrast was not administered for this examination. FINDINGS: The gallbladder is distended and filled with gallstones and sludge. The gallbladder wall is thickened and edematous with pericholecystic inflammation and fluid. Findings are consistent with acute cholec ystitis. There is no significant intrahepatic biliary ductal dilatation. The common bile duct is norm al in caliber, measuring up to 3.5 mm diameter. There is apparent filling defect just below the confl uence of the common hepatic ducts, best seen on coronal image #59. The remainder of the common bile d uct appears clear. The pancreatic duct is normal in caliber. The unenhanced liver, spleen, pancreas, and adrenal glands are grossly unremarkable. The right kidney is normal in size and without hydronephrosis. Right renal cysts measure up to 14 mm. The left kidney is not identified and presumed surgically absent. The abdominal aorta is normal in caliber. There is no bowel obstruction. Mild wall thickening of the duodenum is likely related to adjacent cholecystit is. There is trace free fluid seen in the right upper quadrant. The heart is enlarged. No pleural eff usion is identified. There is no evidence of obstructive bony lesion. IMPRESSION: 1. Cholelithiasis with severe acute cholecystitis. 2. There is an apparent filling defect within the common bile duct just below the confluence of the c ommon hepatic ducts. This likely resents choledocholithiasis. Less likely, this could represent artif act or stricture. 3. The remainder of the common bile duct is clear. 4. There is no intrahepatic biliary ductal dilatation identified. Electronically signed by: Kelby Brush M.D. 12/02/2021 9:56 PM
[2021-12-02] MEDS: ACETAMINOPHEN 325 MG TAB PO PRN (23:31)
[2021-12-03] MEDS: LACTATED RINGER'S 1,000 ML IV SCH ×4 (01:26→22:06)
--- NOTE | 2021-12-03 05:16 | Surgery Progress Note ---
Date of Service December 03, 2021 Assessment & Plan (1) Cholelithiasis: Plan: Patient has been admitted on the hospitalist service proceeding as follows: Continue analgesics Continue antiemetics Continue antibiotics in form of Rocephin and Flagyl GI consultation noted. Patient has undergone an MRCP. The study showed a filling defect in the common bile duct concerning for choledocholithiasis. Repeat LFTs for this morning are pending Light of MRCP findings we will await further input from GI as patient may require an ERCP prior to undergoing cholecystectomy Admission and Anticipated Discharge Date Admission Date: December 02, 2021 Supervising Physician Co-Signing Physician Notes Patient seen and examined, labs and imaging reviewed, agree with above. 81-year-old male admitted with cholecystitis and possible choledocholithiasis. No pain this morning. On exam he is afebrile stable vitals, bilirubin 1.2 other LFTs normal, WBC normal. Platelets 87. MRCP performed overnight shows likely filling defect in the common bile duct and acute cholecystitis. We will discussed this with GI, potential ERCP and cholecystectomy today. Plan for laparoscopic cholecystectomy, possible cholangiogram sometime this hospital stay Rest of the procedure discussed to include but not limited to bleeding, infection, retained stone, bile leak, damage surrounding structures including common bile duct, need for future more extensive surgery, conversion open, and the risk of anesthesia Appreciate GI input and medicine care of this patient Subjective Patient is resting comfortably in bed. Overnight he denies any nausea vomiting. He also denies any worsening abdominal pain. He did report having a fever last night which has resolved. No diarrhea noted. Physical Exam Gastrointestinal (Abdomen): Abdomen is soft with minimal distention. Bowel sounds are present. There is no rebound tenderness or guarding. Minimal pain with palpation on the right upper quadrant Results & Data ([facility]) Vital Signs (Past 12 Hours) Vital Signs Temp Pulse Pulse Resp BP BP Pulse Ox 12/03/21 03:36 37.3 C 67 18 135/64 93 12/02/21 23:34 71 12/02/21 22:37 37.9 C H 70 18 137/61 93 12/02/21 19:09 37.1 C 71 20 130/69 98 PG Care Time/CCT Total # of Minutes Spent Total Time Spent with Patient: Total time spent is greater than 50% in coordination of care (as documented) at patient's floor/unit and/or counseling patient: Coding Level of Care Code 82484 Subseq Hosp Care Lvl 1 Diagnoses Cholelithiasis K80.20
[2021-12-03] MEDS: metroNIDAZOLE 500 MG/100 ML BAG IV SCH ×3 (05:53→22:07)
[2021-12-03] MEDS: LEVOTHYROXINE SODIUM 112 MCG TABLET PO SCH (05:53)
[2021-12-03 07:44] LABS: Hematocrit (blood only) 38.8 % (42-52); Hemoglobin 12.8 g/dL (14.0-18.0); Mean Corpuscular Hemoglobin 28.6 pg (25-34); Mean Corpuscular Volume 86.6 fL (80-100); RDW Coefficient of Variation 14.5 % (11.5-14.5); RDW Standard Deviation 45.8 fL (36.4-46.3); Red Blood Count 4.48 M/uL (4.7-6.1)
[2021-12-03] MEDS: cefTRIAXone SODIUM 2,000 MG in DEXTROSE 5% 50 ML IV SCH (08:02)
[2021-12-03] MEDS: PANTOprazole 40 MG TAB PO SCH (08:02)
[2021-12-03 08:03] LABS: Basophils # (auto) 0.03 K/uL (0-0.2); Basophils % (auto) 0.3 %; Immature Granulocytes # (auto) 0.01 K/uL (0.00-0.02); Immature Granulocytes % (auto) 0.1 %; Lymphocytes # (auto) 0.84 K/uL (1.2-3.4); Lymphocytes % (auto) 8.6 %; Mean Platelet Volume 9.7 fL (7.4-10.4); Monocytes # (auto) 0.92 K/uL (0.11-0.59); Monocytes % (auto) 9.4 %; Neutrophils % (auto) 80.6 %; Platelet Count 87 K/uL (130-400); Platelet Estimate Decreased (Normal)
[2021-12-03] MEDS: allopurinoL 300 MG TAB PO SCH (08:03)
[2021-12-03 08:25] LABS: Albumin Globulin Ratio 1.4 (0.9-2); Albumin Level 3.1 gm/dl (3.4-5.0); BUN Creatinine Ratio 16.2 (10-20); Bilirubin,Total 1.2 mg/dl (0.2-1.0); Calcium 8.1 mg/dl (8.5-10.1); Creatinine Clr Calc Pharmacy 41.3 ml/min; Est GFR (African American) 50.7 ml/min; Est GFR (Non-African American) 43.7 ml/min; Globulin 2.2 gm/dl (2.5-4.0); Magnesium 1.7 mg/dl (1.7-2.4); Potassium 3.9 mmol/L (3.5-5.1); Total Protein 5.3 gm/dl (6.0-8.3)
[2021-12-03] MEDS ORDERED: ATENOLOL 50 MG TABLET PO SCH (09:00)
[2021-12-03] MEDS ORDERED: BUPIVACAINE 0.5 % 5 MG/1 ML MPF 30ML VIAL ONE (10:19)
[2021-12-03] MEDS ORDERED: INDOMETHACIN 50 MG SUPP PR ONE (10:19)
[2021-12-03] MEDS ORDERED: fentaNYL citrate 100 MCG/2 ML VIAL ONE ×2 (10:57→12:28)
[2021-12-03] MEDS ORDERED: GLYCOPYRROLATE 0.2 MG/ML VIAL ONE (10:57)
[2021-12-03] MEDS ORDERED: NEOSTIGMINE METHYLSULFATE 1 MG/ML 10ML VIAL ONE (10:57)
[2021-12-03] MEDS ORDERED: ONDANSETRON INJ 2 MG/ML 2 ML VIAL ONE (10:57)
[2021-12-03] MEDS ORDERED: DEXAMETHASONE SOD INJ 4 MG/ML VIAL ONE (10:57)
[2021-12-03] MEDS ORDERED: LIDOCAINE 2% 2 ML VIAL/AMP(20MG/ML) INFIL ONE (10:57)
[2021-12-03] MEDS ORDERED: PROPOFOL IV EMULSION 10 MG/ML 20 ML VIAL IV ONE ×2 (10:57→13:55)
[2021-12-03] MEDS ORDERED: ROCURONIUM BROMIDE 10 MG/ML 5 ML VIAL IV ONE ×3 (10:58→12:48)
--- NOTE | 2021-12-03 11:32 | History & Physical Bridge Note ---
Date of Service December 03, 2021 History & Physical Bridge Note I have examined the patient, reviewed the History & Physical and in the interval since the performance of the History & Physical I have noted the following changes of clinical significance: no changes noted MRCP showed choledocholithiasis. Plan for ERCP with Lap elo today. Patient was explained in detail regarding risks, benefits, limitations and alternatives of the above endoscopic procedure. Risks of intravenous sedation used for procedure were also explained. Risks include, but not limited to perforation, bleeding, infection, respiratory distress, cardiac arrest and . Patient is also aware about the possibility of missed lesion. Patient's questions were answered. The patient verbalized understanding the information and agreed to undergo the procedure.
--- NOTE | 2021-12-03 11:57 | Anesthesiology Consultation ---
Date of Service December 03, 2021 Assessment & Plan (1) Encounter for pre-operative examination: Chart Review Chart Review: Acceptable Risk for Surgery (necessary surgery) and Patient NOT seen in Pre Admission Testing Consults Requested none History Surgery Operation Date: 12/03/21 11:30 Proposed Procedures p Endoscopic Retrograde Cholangiopancreato - MD toño Payton Laparoscopic Cholecystectomy - Paddy Mendez DO, FACS Height/Weight Height: 5 ft 8 in Weight: 83.8 kg Allergies Allergy/AdvReac Type Severity Reaction Status Date / Time Cipro Allergy Unknown "EYES Verified 11/06/12 08:56 ITCHY AND BURNING" ciprofloxacin Allergy Unknown "EYES Verified 12/02/21 13:33 ITCHY AND BURNING" guaifenesin Allergy Unknown Verified 12/02/21 13:33 Penicillins Allergy Unknown Verified 12/02/21 13:33 pseudoephedrine Allergy Unknown Verified 12/02/21 13:33 Medications Home Medications Medication Instructions Recorded Confirmed Last Taken allopurinol 300 mg tablet 300 mg PO QAM 03/04/20 12/02/21 11/28/21 atenolol 50 mg tablet 50 mg PO QAM 03/04/20 12/02/21 11/28/21 levothyroxine 112 mcg tablet 112 mcg PO QAM 03/04/20 12/02/21 11/28/21 (Levoxyl) pantoprazole 40 mg tablet,delayed 40 mg PO QAM 12/02/21 12/02/21 12/02/21 release Active Medications Generic Name Dose Route Start Last Admin Trade Name Freq PRN Reason Stop Dose Admin Acetaminophen 650 mg 12/02/21 16:37 12/02/21 23:31 Acetaminophen 325 Mg Tab PO 01/01/22 16:36 650 mg Q4H PRN Administration Pain or Fever Allopurinol 300 mg 12/03/21 09:00 12/03/21 08:03 Allopurinol 300 Mg Tab PO 01/02/22 08:59 300 mg QAM NO Administration Atenolol 50 mg 12/03/21 09:00 12/03/21 08:03 Atenolol 50 Mg Tablet PO 01/02/22 08:59 50 mg QAM NO Administration Metronidazole 500 mg in 100 mls @ 100 mls/hr 12/02/21 15:00 12/03/21 07:10 Flagyl IV 12/12/21 14:59 Infused Q8H NO Infusion Lactated Ringer's 1,000 mls @ 125 mls/hr 12/02/21 14:45 12/03/21 10:12 Lr IV 01/01/22 14:44 125 mls/hr .Q8H NO Infusion Ceftriaxone Sodium 2,000 mg/ 50 mls @ 100 mls/hr 12/03/21 09:00 12/03/21 10:13 Dextrose IV 12/13/21 08:59 Infused Q24H NO Infusion Protocol Levothyroxine Sodium 112 mcg 12/03/21 06:30 12/03/21 05:53 Levothyroxine Sodium 112 Mcg Tablet PO 01/02/22 06:29 112 mcg DAILYBB NO Administration Pantoprazole Sodium 40 mg 12/03/21 09:00 12/03/21 08:02 Pantoprazole 40 Mg Tab PO 01/02/22 08:59 40 mg QAM NO Administration Past Medical History Medical History Benign prostatic hyperplasia with urinary obstruction Carcinoma of bladder Chronic idiopathic thrombocytopenia Gout Hearing loss Hypertension Hypothyroid Peripheral vascular disease Venous thrombosis of lower extremity Past Family History Family History Unknown FHx: bladder cancer History of nephrolithiasis Cancer Past Surgical History Surgical History H/O cystoscopy H/O sinus surgery History of inguinal hernia repair, bilateral History of nephrectomy, left Social History Smoking Status: Never smoker Hx Alcohol Use: No Hx Substance Use: No Physical Exam Vital Signs Last Vital Signs Temp 37.5 C 12/03/21 07:19 Pulse 72 12/03/21 07:28 Resp 20 12/03/21 07:19 BP 119/65 12/03/21 07:19 Pulse Ox 93 12/03/21 07:19 Testing Laboratory Results 12/03/21 07:10 12/03/21 07:10 Urine Color [place] 12/02/21 11:05 Urine Appearance Clear (Clear) 12/02/21 11:05 Urine pH 5.0 (4.5-7.5) 12/02/21 11:05 Ur Specific [place] 1.021 (1.000-1.030) 12/02/21 11:05 Urine Protein Trace (Negative) H 12/02/21 11:05 Urine Glucose (UA) Negative (Negative) 12/02/21 11:05 Urine Ketones Trace (Negative) H 12/02/21 11:05 Urine Nitrite Negative (Negative) 12/02/21 11:05 Ur Leukocyte Esterase Trace (Negative) H 12/02/21 11:05 Urine WBC (Auto) 1-5 /hpf (0-5) 12/02/21 11:05 Urine RBC (Auto) 0-4 /hpf (0-4) 12/02/21 11:05 U Hyaline Cast (Auto) 1-5 /lpf (0-5) 12/02/21 11:05 U Epithel Cells (Auto) 10-20 /lpf (0-5) H 12/02/21 11:05 Urine Bacteria (Auto) Negative (Negative) 12/02/21 11:05 Electrocardiogram Date: 12/02/21 Findings: + NSST changes SR with 1st degree AV block and PACs, rate 61, inferior and anterior infarct present age undetermined Chest X-Ray Date: 12/02/21 XR chest 1V portable CLINICAL HISTORY: Preoperative evaluation. COMPARISON STUDY: Chest radiograph November 06, 2012. FINDINGS: There is mild elevation of the right hemidiaphragm. Lungs are clear. There is no pneumothorax or pleural effusion. Cardiac size is at the upper limits of normal. Mediastinal contours are normal. There is no evidence for pulmonary edema. IMPRESSION: No acute cardiopulmonary findings. ACT 112: Negative or not required by law. Electronically signed by: Wing Cole M.D. 12/02/2021 2:49 PM
[2021-12-03] MEDS ORDERED: HYDROmorphone INJ 1 MG/ML SYRINGE IV PRN (12:00)
[2021-12-03] MEDS ORDERED: fentaNYL citrate 100 MCG/2 ML VIAL IV PRN (12:00)
[2021-12-03] MEDS ORDERED: LABETALOL HCL IV 5 MG/ML 20ML IV PRN (12:00)
[2021-12-03] MEDS ORDERED: ePHEDrine sulfate 50 MG/ML AMP IV PRN (12:00)
[2021-12-03] MEDS ORDERED: ATROPINE SULFATE 0.1 MG/ML 10ML SYR IV PRN (12:00)
[2021-12-03] MEDS ORDERED: PHENYLEPHRINE 100MCG/ML 5ML SYR IV PRN (12:00)
[2021-12-03] MEDS ORDERED: ONDANSETRON INJ 2 MG/ML 2 ML VIAL IV PRN (12:00)
--- NOTE | 2021-12-03 12:28 | Operative Report ---
Post Operative Report Pre & Post Diagnosis Operation Date: 12/03/21 11:30 <No data on this case meets the specified criteria> I identified the patient and participated in the time-out.: Yes Procedure Operation Date: 12/03/21 11:30 <No data on this case meets the specified criteria> Surgeon Darrion Matamoros MD C Winforms Developer None Estimated Blood Loss 0 Findings See Below (Sphincterotomy done, stone removed) Specimens None Description of Procedure ERCP I attest to the content of the Intraoperative Record and any orders documented therein. Any exceptions are noted below.
--- NOTE | 2021-12-03 12:39 | GI REPORT ---
Patient Name: Soy Jarvis Procedure Date: 12/03/2021 12:08 PM Date of : 1940 Admit Type: Inpatient Age: 81 Gender: Male Attending MD: Darrion Matamoros MD Procedure: ERCP Providers: Darrion Matamoros MD Referring MD: Keanu Paris, Radha Delgado Md, Paddy Mendez Do Indications: Abnormal MRCP, For therapy of bile duct stone(s) Medicines: General Anesthesia Complications: No immediate complications. Estimated Blood Loss: Estimated blood loss: none. Procedure: Pre-Anesthesia Assessment: - Prior to the procedure, a History and Physical was performed, and patient medications, allergies and sensitivities were reviewed. The patient's tolerance of previous anesthesia was reviewed. - The risks and benefits of the procedure and the sedation options and risks were discussed with the patient. All questions were answered and informed consent was obtained. - Patient identification and proposed procedure were verified prior to the procedure by the physician and the nurse. The procedure was verified in the procedure room. - Pre-procedure physical examination revealed no contraindications to sedation. After obtaining informed consent, the scope was passed under direct vision. Throughout the procedure, the patient's blood pressure, pulse, and oxygen saturations were monitored continuously. The Duodenoscope was introduced through the mouth, and advanced to the duodenum and used to inject contrast into the bile duct. The ERCP was accomplished without difficulty. The patient tolerated the procedure well. Findings: The mri technician film was normal. The esophagus was successfully intubated under direct vision. The scope was advanced to a normal major papilla in the descending duodenum without detailed examination of the pharynx, larynx and associated structures, and upper GI tract. The upper GI tract was grossly normal. A biliary pre-cut sphincterotomy was made with a monofilament needle knife using a freehand technique using ERBE electrocautery. There was no post-sphincterotomy bleeding. A 0.025 inch x 270 cm angled Visiglide wire was passed into the biliary tree. The short-nosed traction sphincterotome was passed over the guidewire and the bile duct was then deeply cannulated. Contrast was injected. I personally interpreted the bile duct images. Ductal flow of contrast was adequate. Image quality was adequate. Contrast extended to the main bile duct. Opacification of the entire biliary tree except for the gallbladder was successful. The maximum diameter of the ducts was 8 mm. The biliary sphincterotomy was extended with a monofilament traction (standard) sphincterotome using ERBE electrocautery. There was no post-sphincterotomy bleeding. The biliary tree was swept with a 15 mm balloon starting at the bifurcation. One stone was removed. No stones remained. Indomethacin 100 mg was given via suppository to decrease the risk of post-ERCP pancreatitis (PEP). Impression: - Choledocholithiasis was found. Complete removal was accomplished by biliary sphincterotomy and balloon extraction. Recommendation: - Return patient to [facility] for [facility] care. - Monitor LFTs. - Recall GI if needed. Darrion Matamoros MD 12/03/2021 12:39:32 PM This report has been signed electronically. Note Initiated On: 12/03/2021 12:08 PM Number of Addenda: 0 I attest to the content of the Intraoperative Record and orders documented therein, exceptions below {[id number]}
--- NOTE | 2021-12-03 12:53 | Electrocardiogram Report ---
Test Reason : Blood Pressure : / mmHG Vent. Rate : 061 BPM Atrial Rate : 061 BPM P-R Int : 242 ms QRS Dur : 082 ms QT Int : 376 ms P-R-T Axes : 009 -12 024 degrees QTc Int : 378 ms Poor data quality, interpretation may be adversely affected Sinus rhythm with 1st degree A-V block with Premature atrial complexes Inferior infarct , age undetermined Anterior infarct , age undetermined Abnormal ECG When compared with ECG of 06-NOV-2012 09:48, Inferior infarct is now Present Nonspecific T wave abnormality now evident in Inferior leads Confirmed by Edward Myles ([id number]) on 12/03/2021 12:53:21 PM Referred By: Keanu Paris Confirmed By:Edward Myles
--- NOTE | 2021-12-03 12:53 | Hospitalist Progress Note ---
Date of Service December 03, 2021 Assessment & Plan (1) Acute cholecystitis: (2) Abdominal pain: (3) Hypertension: (4) History of bladder cancer: (5) Chronic idiopathic thrombocytopenia: (6) Hx of deep venous thrombosis: Plan: 81-year-old male who has significant past medical history of HTN, HLD, hypothyroidism, CKD stage III, GERD, gout, history of ITP with chronic thrombocytopenia, history of DVT, history of bladder cancer status post removal presented 12/02 to ED secondary to off-and-on abdominal pain x1 week. He is being managed for the following: #. Acute cholecystitis #. Choledocholithiasis #. Abdominal pain Patient presented with 1 week of off-and-on abdominal pain prior to arrival Admitting CTAP positive for acute cholecystitis Admitting MRCP: Cholelithiasis with severe acute cholecystitis, suggestive of choledocholithiasis. 12/03 ERCP: Choledocholithiasis status post complete removal by biliary sphincterotomy and balloon extraction. Patient remains pain-free, n.p.o., IV fluid, analgesia, antiemetics. Monitor LFTs Rocephin 12/02 and Flagyl 12/02 Surgery on board, appreciate recommendation. #. HTN continue atenolol with parameters #. Chronic ITP plt stable monitor #. CKD-3 admitting cr 1.75 baseline 1.6 Pt on IVF, Cr trending down avoid nephrotoxic agents #. DVT ppx/hx of DVT after bladder surgery: SCD/TEDS for now, post operatively initiate chemical ppx when risk of bleeding deemed minimal per Surgery. Full code PCP: [place] Admission and Anticipated Discharge Date Admission Date: December 02, 2021 Subjective Pt was seen and examined at bedside as a f/u of acute cholecystitis. Patient was sitting up in bed, NAD, no new acute events overnight, patient denies any belly pain, reports feeling bloated with even sips of water, denies any dizziness/headache/chills/chest pain/belly pain/palpitations/other review of symptoms. Patient remains n.p.o. Denies nausea or vomiting. Physical Exam Physical Exam: GENERAL: Alert and oriented x3. NAD, on RA. HEENT: No pallor, no icterus. Pupils equal, round and reactive to light. Oral mucosa moist. NECK: No JVD, no neck masses. HEART: S1 and S2 heard. Regular rate and rhythm. No murmur, no gallop. RESPIRATORY SYSTEM: Normal AP diameter. No accessory muscle use. No wheezing, no crackles. ABDOMEN: Soft, bowel sounds present, nontender, no distention. CENTRAL NERVOUS SYSTEM: No facial droop. Speech is clear. Obeys simple commands. Moves extremities. EXTREMITIES: No edema, no erythema seen. Results & Data Results & Data ([facility]) Vital Signs (Past 12 Hours) Vital Signs Temp Pulse Pulse Resp BP Pulse Ox 12/03/21 07:28 72 12/03/21 07:19 37.5 C 71 20 119/65 93 12/03/21 03:36 37.3 C 67 18 135/64 93 (1) Abdominal pain Abdominal location: unspecified location Qualified Code(s): R10.9 - Unspecified abdominal pain
[2021-12-03] MEDS ORDERED: GLUCAGON FOR INJ 1 MG VIAL ONE (13:31)
--- NOTE | 2021-12-03 13:46 | Fluoroscopy Report ---
FL ERCP biliary ductal CLINICAL HISTORY: ERCP TO BE DONE IN THE O.R.. Cholelithiasis. Acute cholecystitis. Common bile duct stone. COMPARISON STUDY: MRCP for a 22. FLUOROSCOPY TIME: 14 seconds. FINDINGS: 25 fluoroscopic spot images of the right upper quadrant demonstrate cannulation of the comm on bile duct with a balloon sweep. IMPRESSION: Fluoroscopic assistance provided for ERCP. ACT 112: Negative or not required by law. Electronically signed by: Laith Slade M.D. 12/03/2021 1:44 PM
--- NOTE | 2021-12-03 14:24 | Operative Report ---
[facility] Post Operative Report Pre & Post Diagnosis Operation Date: 12/03/21 11:30 Pre-Op Diagnosis: Cholelithiasis, Choledocholithiasis, acute cholecystitis Post-Op Diagnosis: Cholelithiasis, Choledocholithiasis, severe acute cholecystitis I identified the patient and participated in the time-out.: Yes Procedure Operation Date: 12/03/21 11:30 Actual Procedures p Endoscopic Retrograde Cholangiopancreatography with Sphincterotomy(Not Applicable) - MD toño Payton Laparoscopic Cholecystectomy(Not Applicable) - Paddy Mendez DO, FACS Surgeon Paddy Mendez DO, ROSARIO Chemical Technician None Estimated Blood Loss 50 Findings Consistent with Post-Op Diagnosis (Sphincterotomy done, stone removed) Severe acute cholecystitis. ERCP with stone extraction and sphincterotomy performed by GI. See their note for further details. Critical view of safety obtained, cystic duct stapled with 30 mm purple loaded Endo JOE. Cystic artery with posterior and anterior branches, both controlled with clips. Surgicel placed, 10 mm flat ANDRE placed. Good hemostasis. Specimens Gallbladder Anesthesia Type General Complications none Disposition Accompanied Patient To Recovery: No Disposition: Recovery Room Indications 81-year-old male admitted with choledocholithiasis and cholecystitis. MRCP showed filling defect. Plan for ERCP by GI followed immediately by laparoscopic cholecystectomy with possible cholangiogram. The risks of the procedure were discussed, all questions were answered, and the patient agreed to proceed with surgery as planned. Description of Procedure The patient was properly identified, consented, and taken to the operating room where he was placed in the supine position. General endotracheal anesthesia was induced. SCDs and a safety belt were placed. The patient was on routine antibiotics on the floor. The patient underwent an ERCP by GI with extraction of a stone and sphincterotomy, please see their note for further details. The patient's abdomen was prepped and draped in the standard sterile fashion. A surgical timeout was performed and all parties were in agreement that this was the correct patient and procedure to be performed and we continued as planned. An incision was made superior and to the left of the umbilicus overlying the rectus muscle and the Veress needle was inserted. Saline drop test confirmed entry into the peritoneum. The abdomen was insufflated with carbon dioxide which the patient tolerated without incident. The abdomen was then entered using the Optiview technique and a 5 mm trocar. The laparoscope was inserted and no damage from initial trocar or Veress needle placement was noted, no gross abnormalities were noted within the 4 quadrants of the abdomen. An 11 mm port was placed in the subxiphoid position and two 5 mm ports were then placed in the right subcostal position. The patient was placed in reverse Trendelenburg position and rotated towards the left. The 11 mm port was later replaced with a 12 mm port to accommodate the stapler. The gallbladder was significantly and acutely inflamed. It did appear gangrenous. An aspiration needle was used to decompress the gallbladder to allow for retraction. The dome of the gallbladder was retracted towards the left upper quadrant and the infundibulum was retracted toward the right lower quadrant revealing Calot's triangle. Peritoneal attachments were taken down with electrocautery and blunt dissection. The cystic duct and artery were circumferentially dissected. A window of safety was obtained showing the cystic duct entering the gallbladder with no aberrant structures noted. The cystic duct would not accommodate a 10 mm clips, therefore I elected to staple it with a 30 mm purple loaded Endo JOE stapler. This was accomplished. The cystic artery had an anterior and posterior branch which were both controlled with clips and divided. The gallbladder was then lifted off the gallbladder fossa with electrocautery. The gallbladder was placed in an Endo Catch bag and removed through the subxiphoid port site. There was some generalized oozing from the liver bed which was controlled with electrocautery. Surgicel was placed in the liver bed and pressure was held with a Ray-Mira for several minutes. The Ray-Mira was removed and hemostasis appeared good. The Surgicel was left in place. The right upper quadrant was irrigated and hemostasis was found to be good. A 10 mm flat ANDRE drain was placed in the gallbladder fossa and exited through the right most lateral port site. This was secured into place with a 2-0 nylon suture. 5 mm trochars were removed under direct visualization and the abdomen was allowed to collapse. The subxiphoid port site fascia was closed with 0 Vicryl suture. The wound was irrigated, and the skin of all ports was closed with 4-0 Monocryl subcuticular sutures. Dermabond was placed over the wounds, and a drain sponge was placed around the ANDRE. The patient was extubated in the operating room and taken to the PACU where he recovered without apparent incident. All sponge, instrument and needle counts were correct at the conclusion of the procedure. The patient tolerated the procedure well. I attest to the content of the Intraoperative Record and any orders documented therein. Any exceptions are noted below.
--- NOTE | 2021-12-03 15:02 | Anesthesiology Progress Note ---
Date of Service December 03, 2021 Anesthesia Post Procedure Vital Signs Vital Signs: Temp Pulse Pulse Pulse Resp BP BP 12/03/21 14:55 55 L 18 129/67 12/03/21 14:45 56 L 15 136/61 12/03/21 14:39 36.3 C L 56 L 16 149/64 H 12/03/21 07:28 72 12/03/21 07:19 37.5 C 71 20 119/65 12/03/21 03:36 37.3 C 67 18 135/64 12/02/21 23:34 71 12/02/21 22:37 37.9 C H 70 18 137/61 12/02/21 19:09 37.1 C 71 20 130/69 12/02/21 17:07 37.0 C 67 18 121/72 12/02/21 16:37 37.0 C 74 18 121/72 12/02/21 16:24 70 12/02/21 15:36 63 18 120/61 Pulse Ox 12/03/21 14:55 94 12/03/21 14:45 95 12/03/21 14:39 95 12/03/21 07:28 12/03/21 07:19 93 12/03/21 03:36 93 12/02/21 23:34 12/02/21 22:37 93 12/02/21 19:09 98 12/02/21 17:07 95 12/02/21 16:37 12/02/21 16:24 12/02/21 15:36 95 Transfer of Care Handoff Completed per policy Notes Mental Status: alert / awake / arousable Patient Amnestic to Procedure: Yes Nausea / Vomiting: adequately controlled Pain: adequately controlled Airway Patency, RR, SpO2: stable & adequate BP & HR: stable & adequate Hydration State: stable & adequate Anesthetic Complications: no major complications apparent and Pt Satisfied with anesthetic care Notes: The patient is awake and comfortable.
[2021-12-03] MEDS ORDERED: oxyCODONE HCL IR 5 MG TAB (IMMEDIATE RELEASE) PO PRN ×2 (15:44)
[2021-12-03] MEDS ORDERED: diphenhydrAMINE 50 MG/ML VIAL IV PRN (16:00)
[2021-12-03] MEDS: ACETAMINOPHEN 325 MG TAB PO PRN (20:58)
[2021-12-04 04:44] LABS: Hematocrit (blood only) 37.5 % (42-52); Hemoglobin 12.6 g/dL (14.0-18.0); Mean Corpuscular Hemoglobin 28.8 pg (25-34); Mean Corpuscular Volume 85.8 fL (80-100); Mean Platelet Volume 9.3 fL (7.4-10.4); Platelet Count 102 K/uL (130-400); RDW Standard Deviation 43.7 fL (36.4-46.3); Red Blood Count 4.37 M/uL (4.7-6.1); White Blood Count 9.59 K/uL (4.8-10.8)
[2021-12-04 04:51] LABS: Mean Corpuscular Hgb Conc 33.6 g/dL (32-36)
[2021-12-04 05:08] LABS: BUN Creatinine Ratio 20.2 (10-20); Bilirubin Direct 0.2 mg/dl (0-0.2); Bilirubin,Total 0.5 mg/dl (0.2-1.0); Calcium 7.8 mg/dl (8.5-10.1); Creatinine Clr Calc Pharmacy 37.5 ml/min; Est GFR (African American) 45.1 ml/min; Est GFR (Non-African American) 38.9 ml/min; Magnesium 1.8 mg/dl (1.7-2.4); Phosphorus 3.5 mg/dl (2.5-4.9); Potassium 4.4 mmol/L (3.5-5.1); Total Protein 5.1 gm/dl (6.0-8.3)
[2021-12-04] MEDS: LACTATED RINGER'S 1,000 ML IV SCH (05:58)
[2021-12-04] MEDS: LEVOTHYROXINE SODIUM 112 MCG TABLET PO SCH (05:58)
[2021-12-04] MEDS: metroNIDAZOLE 500 MG/100 ML BAG IV SCH ×3 (05:58→22:16)
--- NOTE | 2021-12-04 06:45 | Surgery Progress Note ---
Date of Service December 04, 2021 Assessment & Plan (1) Cholelithiasis: Plan: Patient has been admitted on the hospitalist service proceeding as follows: Patient is status post ERCP and laparoscopic cholecystectomy on 12/03/2021 (postop day #1) Continue analgesics Continue antiemetics Continue antibiotics in form of Rocephin and Flagyl We will likely advance diet later this morning Mobilize as able; this may be limited due to his underlying cardiac issues Cause of patient's bradycardia is uncertain. At the present time he is asymptomatic. His medications have been reviewed and he is not taking any current medications that would contribute to this. The patient does take atenolol as an outpatient but he is currently not receiving this. (He did receive yesterday's a.m. dose, but this medication has since been placed on hold in light of his bradycardia) there areno significant laboratory abnormalities that could explain the cause of his bradycardia. Will await further evaluation from the medical team concerning this. Admission and Anticipated Discharge Date Admission Date: December 02, 2021 Supervising Physician Co-Signing Physician Notes Patient seen and examined, labs and imaging reviewed, agree with above. 81-year-old male POD #1 ERCP with stone extraction and sphincterotomy and laparoscopic cholecystectomy for choledocholithiasis and severe acute cholecystitis. He is feeling much better today. He does have some a symptom bradycardia which they are holding his atenolol for. He is tolerating clear liquids and is not vomiting. His labs are improved. On exam he is afebrile with stable vitals. His abdomen is soft, probably tender to palpation, incisions without infection. ANDRE drain with serosanguineous drainage. WBC normal, bilirubin down from yesterday. We will advance to regular diet, continue IV antibiotics, continue ANDRE drain, may decrease IV fluids. Subjective Patient is resting comfortably in bed. He denies any lightheadedness or dizziness. He denies any chest pain or shortness of breath. Since surgery he has consumed liquids which he says he tolerated without any nausea vomiting. He notes only minor discomfort in his abdomen greatest in the right upper quadrant near one of his surgical incisions. No bowel movement since surgery. Events noted last night discussed with RNpatient experienced episode of bradycardia with heart rate in the 30s. Hospitalist were notified and an EKG was performed showing sinus bradycardia with no ischemic changes. Physical Exam Cardiovascular: Rate/Rhythm: regular rate and regular rhythm Gastrointestinal (Abdomen): Abdomen is soft with minimal distention. ANDRE drain is in place draining serosanguineous fluid. He has appropriate tenderness near surgical incisions. Bowel sounds are hypoactive. Results & Data ([facility]) Vital Signs (Past 12 Hours) Vital Signs Temp Pulse Pulse Resp BP Pulse Ox 12/04/21 03:36 36.5 C 42 L 18 136/54 L 93 12/03/21 23:07 36.6 C 50 L 18 139/67 93 12/03/21 22:54 50 L PG Care Time/CCT Total # of Minutes Spent Total Time Spent with Patient: Total time spent is greater than 50% in coordination of care (as documented) at patient's floor/unit and/or counseling patient: Coding Level of Care Code None Diagnoses Cholelithiasis K80.20
[2021-12-04] MEDS: allopurinoL 300 MG TAB PO SCH (08:36)
[2021-12-04] MEDS: PANTOprazole 40 MG TAB PO SCH (08:36)
[2021-12-04] MEDS: cefTRIAXone SODIUM 2,000 MG in DEXTROSE 5% 50 ML IV SCH (08:43)
[2021-12-04] MEDS: MAGNESIUM SULFATE / D5W 1 GM/100 ML BAG IV SCH ×2 (09:55→11:42)
--- NOTE | 2021-12-04 11:16 | Electrocardiogram Report ---
Test Reason : Blood Pressure : / mmHG Vent. Rate : 039 BPM Atrial Rate : 039 BPM P-R Int : 224 ms QRS Dur : 086 ms QT Int : 482 ms P-R-T Axes : 076 -08 015 degrees QTc Int : 388 ms Marked sinus bradycardia with 1st degree A-V block with Premature atrial complexes Inferior infarct (cited on or before 02-DEC-2021) Abnormal ECG When compared with ECG of 02-DEC-2021 11:42, Vent. rate has decreased BY 22 BPM Confirmed by Edward Myles ([id number]) on 12/04/2021 11:15:29 AM Referred By: Keanu Paris Confirmed By:Edward Myles
--- NOTE | 2021-12-04 16:44 | Hospitalist Progress Note ---
Date of Service December 04, 2021 Assessment & Plan (1) Acute cholecystitis: (2) Abdominal pain: (3) Hypertension: (4) History of bladder cancer: (5) Chronic idiopathic thrombocytopenia: (6) Hx of deep venous thrombosis: Plan: 81-year-old male who has significant past medical history of HTN, HLD, hypothyroidism, CKD stage III, GERD, gout, history of ITP with chronic thrombocytopenia, history of DVT, history of bladder cancer status post removal presented 12/02 to ED secondary to off-and-on abdominal pain x1 week. He is being managed for the following: #. Acute cholecystitis #. Choledocholithiasis #. Abdominal pain Patient presented with 1 week of off-and-on abdominal pain prior to arrival Admitting CTAP positive for acute cholecystitis Admitting MRCP: Cholelithiasis with severe acute cholecystitis, suggestive of choledocholithiasis. 12/03 ERCP: Choledocholithiasis status post complete removal by biliary sphincterotomy and balloon extraction. 12/03: S/p Lap Cholecystectomy by Dr. Mendez. Patient remains pain-free, tolerating liq diet, adv per Sx rec., stop IVF, analgesia, antiemetics. Rocephin 12/02 and Flagyl 12/02 Surgery on board, appreciate recommendation. #. HTN #. Bradycardia Patient does have history of bradycardia in low 50s, patient not aware of, hold atenolol TSH WNL Curbside consult with cardiology 12/04, continue to monitor over telemetry. Likely will need different blood pressure medication upon discharge. #. Chronic ITP plt stable monitor #. CKD-3 admitting cr 1.75 baseline 1.6 avoid nephrotoxic agents #. DVT ppx/hx of DVT after bladder surgery: SCD/TEDS for now, post operatively initiate chemical ppx when risk of bleeding deemed minimal per Surgery. Full code PCP: [place] Disposition: Expect discharge in next 1 to 2 days with surgery recommendations. PT/OT. Admission and Anticipated Discharge Date Admission Date: December 02, 2021 Subjective Pt was seen and examined at bedside as a f/u of acute cholecystitis and choledocholithiasis. Patient was lying in bed, NAD, no new acute events overnight, patient denies any belly pain, reports improvement with nausea and bloating, denies any dizziness/headache/chills/chest pain/belly pain/palpitations/other review of symptoms. Pt tolerating clear liquid diet. Denies nausea or vomiting. Physical Exam Physical Exam: GENERAL: Alert and oriented x3. NAD, on RA. HEENT: No pallor, no icterus. Pupils equal, round and reactive to light. Oral mucosa moist. NECK: No JVD, no neck masses. HEART: S1 and S2 heard. Regular rate and rhythm. No murmur, no gallop. RESPIRATORY SYSTEM: Normal AP diameter. No accessory muscle use. No wheezing, no crackles. ABDOMEN: Soft, bowel sounds present, nontender, no distention. ANDRE drain with min collection, lap elo ports healthy. CENTRAL NERVOUS SYSTEM: No facial droop. Speech is clear. Obeys simple commands. Moves extremities. EXTREMITIES: No edema, no erythema seen. Results & Data Results & Data ([facility]) Vital Signs (Past 12 Hours) Vital Signs Temp Pulse Pulse Resp BP BP Pulse Ox 12/04/21 15:33 50 L 12/04/21 15:03 36.4 C L 52 L 18 119/54 L 93 12/04/21 11:00 36.9 C 53 L 20 117/62 93 12/04/21 07:17 41 L 12/04/21 07:00 36.4 C L 49 L 20 119/66 95 (1) Abdominal pain Abdominal location: unspecified location Qualified Code(s): R10.9 - Unspecified abdominal pain
[2021-12-05] MEDS: metroNIDAZOLE 500 MG/100 ML BAG IV SCH (06:02)
[2021-12-05] MEDS: LEVOTHYROXINE SODIUM 112 MCG TABLET PO SCH (06:02)
[2021-12-05 08:10] LABS: Hematocrit (blood only) 36.6 % (42-52); Hemoglobin 12.1 g/dL (14.0-18.0); Mean Corpuscular Hemoglobin 28.3 pg (25-34); Mean Corpuscular Hgb Conc 33.1 g/dL (32-36); Mean Corpuscular Volume 85.7 fL (80-100); Mean Platelet Volume 9.8 fL (7.4-10.4); Platelet Count 137 K/uL (130-400); RDW Coefficient of Variation 14.3 % (11.5-14.5); RDW Standard Deviation 44.3 fL (36.4-46.3); Red Blood Count 4.27 M/uL (4.7-6.1); White Blood Count 11.29 K/uL (4.8-10.8)
[2021-12-05 08:24] LABS: BUN Creatinine Ratio 23.4 (10-20); Calcium 7.9 mg/dl (8.5-10.1); Creatinine Clr Calc Pharmacy 42.9 ml/min; Est GFR (Non-African American) 44.8 ml/min; Potassium 4.4 mmol/L (3.5-5.1)
[2021-12-05] MEDS ORDERED: cefTRIAXone SODIUM 2,000 MG in DEXTROSE 5% 50 ML IV SCH (09:00)
[2021-12-05] MEDS: PANTOprazole 40 MG TAB PO SCH (09:27)
[2021-12-05] MEDS: allopurinoL 300 MG TAB PO SCH (09:27)
--- NOTE | 2021-12-05 09:27 | Surgery Progress Note ---
Date of Service December 05, 2021 Assessment & Plan (1) Acute cholecystitis: Plan: POD 2 lap elo/ERCP ok for discharge will discuss drain management with Dr. Mendez Admission and Anticipated Discharge Date Admission Date: December 04, 2021 Supervising Physician Co-Signing Physician Notes Patient seen and examined, labs and imaging reviewed, agree with above. 81-year-old male POD 21 ERCP with stone extraction and sphincterotomy and laparoscopic cholecystectomy for choledocholithiasis and severe acute cholecystitis. Tolerating regular diet, no pain. On exam afebrile stable vitals. Abdomen soft, nontender. Incisions without infection. ANDRE drain with serosanguineous drainage. Labs unremarkable. We will remove the drain. Patient is cleared for discharge to home from general surgery standpoint. Wound care instructions, activity restrictions, and return precautions given. Follow- up in 2 weeks in general surgery clinic. Subjective tolerating regular diet, not taking any analgesics Physical Exam Gastrointestinal (Abdomen): Inspection/Auscultation: + abdominal surgical drain present (20 cc per shift non-bilious); abdomen not distended Percussion/Palpation: abdomen soft Results & Data ([facility]) Vital Signs (Past 12 Hours) Vital Signs Temp Pulse Pulse Resp BP BP Pulse Ox 12/05/21 08:33 36.6 C 65 16 153/72 H 97 12/05/21 04:05 36.6 C 61 140/73 92 12/04/21 23:12 51 L 12/04/21 23:06 36.8 C 52 L 18 131/62 93 PG Care Time/CCT Total # of Minutes Spent Total Time Spent with Patient: Total time spent is greater than 50% in coordination of care (as documented) at patient's floor/unit and/or counseling patient: Coding Level of Care Code None Diagnoses Acute cholecystitis K81.0
--- NOTE | 2021-12-05 13:57 | Discharge Summary ---
Date of Service December 05, 2021 Admission HPI Per Admitting Provider This is an 81-year-old male who has significant past medical history of HTN, HLD, hypothyroidism, CKD stage III, GERD, gout, history of ITP with chronic thrombocytopenia, history of DVT, history of bladder cancer status post removal who presents to ED secondary to off-and-on abdominal pain x1 week. He complains of right upper quadrant and epigastric abdominal pain that comes and goes, mostly after fatty meals. Pain radiates to the middle of his back and describes it as a, "stabbing," pain is worse. It is worse he rates pain as a 10 out of 10. Currently he is in 3 out of 10 pain. Pain typically will resolve on its own. Unfortunately he woke up this morning at approximately 3 AM with severe pain radiating to his back. He was nauseated and Had a few episodes of bilious vomiting. He has had poor intake for the past 2 days due to discomfort. He complains of feeling chilled but denies any documented fever or sweats. He denies any lightheadedness, dizziness, chest pain, shortness of breath, cough, URI symptoms, diarrhea, melena, hematochezia, gloria colored stools. Despite H he is very active and still hunts and fishes. He admits to being able to ambulate 1 flight of stairs without getting short of breath or chest pain. In ED patient remained hemodynamically stable. CT abdomen pelvis confirmed acute cholecystitis. He did have elevated total bilirubin at 1.6 but otherwise LFTs WNL. His BUN/creatinine was 25 and 1.73. He saw PCP yesterday for above sx. Lab work was obtained which showed leukocytosis, US of abd revealed cholelithiasis and hepatic steatosis. CBD measured 4mm. Admission Exam Per Admitting Provider Constitutional: WD/WN, vitals as above, NAD, sitting up in bed, pleasant, conversing easily Head: Normocephalic, Atraumatic Eyes: PERRL, conjunctivae normal, anicteric sclerae ENMT: external ear and nose normal, oropharynx normal Neck: trachea midline, no thyromegaly normal visual inspection Respiratory: normal respiratory effort, lungs clear to auscultation, no wheeze, rales, rhonchi. Normal insp/exp effort, no accessory muscle use Cardiovascular: RRR, no murmur, no edema Vessels: no JVD or carotid bruit Chest: normal inspection of chest Abdomen: normal bowel sounds, soft, tender RUQ, no hepatosplenomegaly Musculoskeletal: no cyanosis or clubbing, extremities motor strength 5/5 Skin: no rashes, warm and dry normal turgor Neurologic: PERRL, EOMI, accommodation nl, no face palsy, no dysarthria CN's II-XI intact bilaterally and moves all extremities Psychiatric: A+Ox3, euthymic affect Lymphatic: no cervical or axillary lymphadenopathy : deferred Principal Diagnosis Choledocholithiasis Acute cholecystitis Sinus bradycardia Discharge Exam GENERAL: Alert and oriented x3. NAD, on RA. HEENT: No pallor, no icterus. Pupils equal, round and reactive to light. Oral mucosa moist. NECK: No JVD, no neck masses. HEART: S1 and S2 heard. Regular rate and rhythm. No murmur, no gallop. RESPIRATORY SYSTEM: Normal AP diameter. No accessory muscle use. No wheezing, no crackles. ABDOMEN: Soft, bowel sounds present, nontender, no distention. ANDRE drain with min collection, lap elo ports healthy. CENTRAL NERVOUS SYSTEM: No facial droop. Speech is clear. Obeys simple c ommands. Moves extremities. EXTREMITIES: No edema, no erythema seen. Discharge Data Allergies Allergy/AdvReac Type Severity Reaction Status Date / Time Cipro Allergy Unknown "EYES Verified 11/06/12 08:56 ITCHY AND BURNING" ciprofloxacin Allergy Unknown "EYES Verified 12/02/21 13:33 ITCHY AND BURNING" guaifenesin Allergy Unknown Verified 12/02/21 13:33 Penicillins Allergy Unknown Verified 12/02/21 13:33 pseudoephedrine Allergy Unknown Verified 12/02/21 13:33 Consultations 12/02/21 12:59 Consult General Surgery Stat 12/02/21 15:00 ED Decision to Admit Stat 12/02/21 15:28 Consult Gastroenterology Routine Procedures Performed Operation Date: 12/03/21 11:30 Actual Procedures p Endoscopic Retrograde Cholangiopancreatography with Sphincterotomy(Not Applicable) - Darrion Matamoros MD s Laparoscopic Cholecystectomy(Not Applicable) - Paddy Mendez, , FACS Ordered Studies 12/02/21 11:35 CT abd pelvis wo con Stat 12/02/21 19:26 MR MRCP Urgent 12/03/21 [place] ERCP biliary ductal Routine Hospital Course (1) Acute cholecystitis: (2) Abdominal pain: (3) Hypertension: (4) History of bladder cancer: (5) Chronic idiopathic thrombocytopenia: (6) Hx of deep venous thrombosis: 81-year-old male who has significant past medical history of HTN, HLD, hypothyroidism, CKD stage III, GERD, gout, history of ITP with chronic thrombocytopenia, history of DVT, history of bladder cancer status post removal presented 12/02 to ED secondary to off-and-on abdominal pain x1 week. He is being managed for the following: #. Acute cholecystitis #. Choledocholithiasis #. Abdominal pain Patient presented with 1 week of off-and-on abdominal pain prior to arrival Admitting CTAP positive for acute cholecystitis Admitting MRCP: Cholelithiasis with severe acute cholecystitis, suggestive of choledocholithiasis. 12/03 ERCP: Choledocholithiasis status post complete removal by biliary sphincterotomy and balloon extraction. 12/03: S/p Lap Cholecystectomy by Dr. Mendez. Patient remains pain-free, tolerating regular diet, Tylenol for pain control. Rocephin 12/02 and Flagyl 12/02. Patient being discharged on clindamycin per surgery. Follow-up with PCP no return, follow-up with surgery in 2 weeks time. #. HTN #. Bradycardia Patient does have history of bradycardia in low 50s, patient not aware of, hold atenolol TSH WNL Curbside consult with cardiology 12/04, continue to monitor over telemetry. As discussed at the bedside, your atenolol has been stopped upon discharge, you have been started on amlodipine for blood pressure management, follow-up with your PCP as an outpatient for further discussion/evaluation/management. #. Chronic ITP plt stable monitor #. CKD-3 admitting cr 1.75 baseline 1.6 avoid nephrotoxic agents #. DVT ppx/hx of DVT after bladder surgery: SCD/TEDS for now, post operatively initiate chemical ppx when risk of bleeding deemed minimal per Surgery. Full code PCP: [place] Following instructions are communicated to the patient at the point of discharge: You can take Tylenol as needed for pain. Follow-up with your primary care physician within 1 week time. Follow-up with your surgery doctor in 2 weeks time upon discharge. Due to your heart rate dropping down to very low [up to high 30s], your atenolol has been discontinued upon discharge, amlodipine has been added instead for your hypertension, maintain your blood pressure measurement twice a day and record it, take it to your primary care physician for further discussion of your blood pressure medication/adjustment. You are being discharged on antibiotic, take antibiotics as prescribed. Take medications as prescribed. Total Time Total Time Spent Total Time Spent (In Minutes): 35 Discharge Plan Discharge Items Patient Disposition: Home - Self-Care Reason For Visit: ACUTE CHOLECYSTITIS Discharge Diagnosis: Choledocholithiasis Acute cholecystitis Sinus bradycardia Activity: As commented below Lifting: No more than 10 pounds Bathing Comment: ok to shower Driving/Machine Use: Resume 3 days after discharge Non-emergency contact: Surgeon Call non-emergency contact if: your pain is not controlled, you have a fever, your wound has increased redness and your wound has increased drainage Follow-up/Referrals: Paddy Mendez DO, FACS [Physician] - (Please call to make an appt in approx 2 weeks) Keanu Paris DO [Primary Care Provider] - (Date & Time 12/08/2021 8:00 AM Provider Keanu Paris DO Department Family Practice [address], [place] ) Diet: Regular Addtl Attending Provider Instructions: You can take Tylenol as needed for pain. Follow-up with your primary care physician within 1 week time. Follow-up with your surgery doctor in 2 weeks time upon discharge. Due to your heart rate dropping down to very low [up to high 30s], your atenolol has been discontinued upon discharge, amlodipine has been added instead for your hypertension, maintain your blood pressure measurement twice a day and record it, take it to your primary care physician for further discussion of your blood pressure medication/adjustment. You are being discharged on antibiotic, take antibiotics as prescribed. Take medications as prescribed. Pending Studies at Discharge: No Stand-Alone Forms: My [employer], Smoking Cessation Medications and DC Order Prescriptions: New clindamycin HCl 300 mg capsule 300 mg PO TID 7 Days Qty: 21 RF: 0 amlodipine 5 mg tablet 5 mg PO DAILY Qty: 30 RF: 0 Probiotic 3 billion cell capsule 3,000 mmu cells PO DAILY 10 Days Qty: 10 RF: 0 Continued allopurinol 300 mg tablet 300 mg PO QAM RF: 0 levothyroxine [Levoxyl] 112 mcg tablet 112 mcg PO QAM RF: 0 pantoprazole 40 mg tablet,delayed release (DR/EC) 40 mg PO QAM RF: 0 Discontinued atenolol 50 mg tablet 50 mg PO QAM RF: 0 Discharge Orders: Discharge Order (Routine); Ordered 12/05/21 Ordered By: Radha Delgado Admission Data Admit Date/Time: 12/04/21 16:44 Attending Provider: Radha Delgado Admit Provider: Sukhwinder Friend Primary Care Provider: Keanu Paris Other Providers: Paddy Mendez ; Sukhwinder Friend ; Darrion Matamoros
== END 2021-12-05 15:25 | disposition home or self-care (01) | DRG 418 ==
LOC: 2W 10:31 → ED 10:31 → SUATTDRO 13:47 → 2W 15:40
DX: N13.8 Other obstructive and reflux uropathy; Z79.899 Other long term (current) drug therapy; K80.62 Calculus of gallbladder and bile duct with acute cholecystitis without obstruction; R00.1 Bradycardia, unspecified; Z86.718 Personal history of other venous thrombosis and embolism; Z20.822 Contact with and (suspected) exposure to COVID-19; I12.9 Hypertensive chronic kidney disease with stage 1 through stage 4 chronic kidney disease, or unspecified chronic kidney disease; M10.9 Gout, unspecified; E03.9 Hypothyroidism, unspecified; Z79.890 Hormone replacement therapy; D69.3 Immune thrombocytopenic purpura; K21.9 Gastro-esophageal reflux disease without esophagitis; Z88.8 Allergy status to other drugs, medicaments and biological substances; N17.9 Acute kidney failure, unspecified; Z88.0 Allergy status to penicillin; N40.1 Benign prostatic hyperplasia with lower urinary tract symptoms; Z88.1 Allergy status to other antibiotic agents; I73.9 Peripheral vascular disease, unspecified; N18.30 Chronic kidney disease, stage 3 unspecified

== ENCOUNTER 2022-01-24 16:00 | Observation (INO) ==
[2022-01-24 16:41] LABS: Hematocrit (blood only) 39.1 % (42-52); Hemoglobin 13.1 g/dL (14.0-18.0); Mean Corpuscular Hemoglobin 28.9 pg (25-34); Mean Corpuscular Hgb Conc 33.5 g/dL (32-36); Mean Corpuscular Volume 86.3 fL (80-100); RDW Coefficient of Variation 14.7 % (11.5-14.5); RDW Standard Deviation 46.6 fL (36.4-46.3); Red Blood Count 4.53 M/uL (4.7-6.1); White Blood Count 9.05 K/uL (4.8-10.8)
[2022-01-24 16:56] LABS: Partial Thromboplastin Ratio 0.8; Prothrombin Time 11.1 Seconds (9.0-12.0)
[2022-01-24 16:59] LABS: Mean Platelet Volume 9.5 fL (7.4-10.4); Platelet Count 73 K/uL (130-400)
[2022-01-24 17:00] LABS: Basophils # (auto) 0.01 K/uL (0-0.2); Basophils % (auto) 0.1 %; Eosinophils # (auto) 0.01 K/uL (0-0.5); Eosinophils % (auto) 0.1 %; Immature Granulocytes # (auto) 0.02 K/uL (0.00-0.02); Immature Granulocytes % (auto) 0.2 %; Lymphocytes # (auto) 0.23 K/uL (1.2-3.4); Lymphocytes % (auto) 2.5 %; Monocytes # (auto) 0.21 K/uL (0.11-0.59); Monocytes % (auto) 2.3 %; Neutrophils # (auto) 8.57 K/uL (1.4-6.5); Neutrophils % (auto) 94.8 %; Platelet Estimate Decreased (Normal)
--- NOTE | 2022-01-24 17:09 | XRay Report ---
XR chest 1V portable CLINICAL HISTORY: SEPSIS TECHNIQUE: Single frontal radiograph of the chest was obtained. Comparison: Comparison is made to chest radiograph 12/02/2021 FINDINGS: No lines and tubes are seen. The cardiomediastinal silhouette is normal. The lungs are clear. No evid ence of pleural effusion or pneumothorax. IMPRESSION: No acute chest disease. ACT 112: Negative or not required by law. Electronically signed by: Cristian Valdez M.D. 01/24/2022 5:07 PM
[2022-01-24 17:10] LABS: Alanine Aminotransferase 15 U/L (7-52); Albumin Globulin Ratio 2.2 (0.9-2); Albumin Level 4.1 gm/dl (3.4-5.0); Alkaline Phosphatase 60 U/L (34-104); Anion Gap 8 (3-11); Aspartate Aminotransferase 21 U/L (13-39); BUN Creatinine Ratio 12.7 (10-20); Bilirubin,Total 0.7 mg/dl (0.2-1.0); Blood Urea Nitrogen 20 mg/dl (6-23); Calcium 9.2 mg/dl (8.5-10.1); Carbon Dioxide 23 mmol/L (21-32); Chloride 106 mmol/L (98-107); Est GFR (African American) 46.8 ml/min; Est GFR (Non-African American) 40.4 ml/min; Globulin 1.9 gm/dl (2.5-4.0); Glucose 137 mg/dl (70-99(Fasting)); Magnesium 1.6 mg/dl (1.7-2.4); Sodium 137 mmol/L (136-145)
[2022-01-24 17:14] LABS: Troponin I High Sensitivity 5.9 pg/ml (0-20)
[2022-01-24 17:23] LABS: Influenza A virus by PCR Negative (Neg); Influenza B virus by PCR Negative (Neg); RSV by PCR Negative (Neg); SARS CoV2 RNA(COVID-19) InHosp NEGATIVE (Negative)
[2022-01-24] MEDS ORDERED: cefTRIAXone SODIUM 1,000 MG/50 ML BAG IV STA (17:25)
[2022-01-24] MEDS ORDERED: SODIUM CHLORIDE 0.9% 1000ML 1,000 ML IV ONE (17:25)
[2022-01-24] MEDS ORDERED: ACETAMINOPHEN 325 MG TAB PO STA (17:25)
--- NOTE | 2022-01-24 18:01 | Emergency Department Note ---
Impression & Plan Chronic idiopathic thrombocytopenia, Anemia, Hypomagnesemia ED Provider Note NAME: YANET ESTEVEZ AGE: 81 SEX: M : 1940 ARRIVES VIA: Walk-In INFORMANT: Patient ED PROVIDER(S): Chalo Boudreaux DO CHIEF COMPLAINT: shaking chills HPI: Patient is an 81-year-old male who presents to the ER he started having shaking chills around 2-3 PM today. He had a cystoscopy performed by Dr. Galvan in the morning today. He denies any headache or change in vision. No chest pain or shortness of breath. No cough or runny nose. No loss of taste or smell. No belly pain but does admit to one episode of nausea vomiting. No dysuria, urgency, or frequency. No other exacerbating or remitting factors. ROS: See above HPI for pertinent positives & negatives. A total of 10 systems reviewed and were otherwise negative. PAST MEDICAL HISTORY:See Below PAST SURGICAL HISTORY:See Below FAMILY HISTORY:See Below SOCIAL HISTORY:See Below HOME MEDICATIONS:See Below ALLERGIES:See Below VITALS:See Below PHYSICAL EXAMINATION: GENERAL: Sitting up in bed, alert, well appearing, well nourished, no distress, non-toxic EYE EXAM: normal conjunctiva. OROPHARYNX: no exudate, no erythema, lips, buccal mucosa, and tongue normal and mucous membranes are moist NECK: supple, no nuchal rigidity, no adenopathy, non-tender LUNGS: Clear to auscultation. Normal chest wall mechanics HEART: no murmurs, S1 normal and S2 normal ABDOMEN: abdomen soft, non-tender, normo-active bowel sounds, no masses, no rebound or guarding. UPPER EXTREMITIES: upper extremities are grossly normal. LOWER EXTREMITIES: No pitting edema. NEURO EXAM: Normal sensorium, cranial nerves II-XII grossly intact, normal speech, no gross weakness of arms, no gross weakness of legs. MEDICAL DECISION MAKING: Patient is an 81-year-old gentleman who presents ER for above-stated complaint. IV was established blood was obtained. Labs show no significant leukocytosis or anemia. There was a thrombocytopenia at 71 consistent with previous. INR unremarkable. BMP with a creatinine 1.5 consistent with previous. Magnesium was low at 1.6. Lactate was initially elevated at 2.8. Troponin was negative. UA was clean. Influenza COVID and RSV were negative. Patient just recently had a cystoscopy this morning. There is a significant delay as patient was out in the waiting room for close to 3 hours. Patient was given IV fluids and antibiotics when he got to the room. Patient was updated bedside discussed with hospitalist admitted for further work-up of fever of unknown etiology. Triage Nursing notes reviewed. Limited review of prior medical records performed Vital Signs: reviewed and remarkable for tachy, febrile Differential diagnosis: Differential diagnosis includes etiologies such as sepsis, UTI, pneumonia, metabolic, electrolyte abnormalities, cardiac sources, intracerebral event, toxicologic, neurological, as well as others were entertained. ER treatment provided: See below Diagnostics interpreted by me: ECG: Sinus rhythm rate of 91 Normal axis No PVCs QTC 396 Cardiac Monitoring: An order was placed for continuous cardiac monitoring. The monitor shows a rate of 90 with sinus rhythm. Laboratory studies: As stated above and show below. Imaging studies: Portable AP upright 1 view the chest was unremarkable Consultation(s): Discussed with patient hospitalist for further evaluation Procedures: none Critical Care: None Past Med/Surg History Medical History Benign prostatic hyperplasia with urinary obstruction Carcinoma of bladder Chronic idiopathic thrombocytopenia Gout Hearing loss Hypertension Hypothyroid Peripheral vascular disease Venous thrombosis of lower extremity Surgical History H/O cystoscopy H/O sinus surgery History of inguinal hernia repair, bilateral History of nephrectomy, left Hx laparoscopic cholecystectomy (12/03/21) Laparoscopic Cholecystectomy - Paddy Mendez DO, FACS 12/03/2021 Family History Unknown FHx: bladder cancer History of nephrolithiasis Cancer Social History Smoking Status: Never smoker Hx Alcohol Use: No Hx Substance Use: No Preferred Language: Persian Communication Ability: Effective Visual Impairment: No Limitations Handbag Stitcher Required: No Beliefs That Will Affect Care: None marital status: Current Living Situation: Spouse and Family current occupational status: retired Feels Safe at Home: Yes Assistive Devices: None Allergies Allergies Allergy/AdvReac Type Severity Reaction Status Date / Time Penicillins Allergy Intermediate Hives Verified 01/24/22 18:19 ciprofloxacin Allergy Unknown "EYES Verified 01/24/22 18:19 ITCHY AND BURNING" guaifenesin AdvReac Severe UNABLE TO Verified 01/24/22 18:19 VOID pseudoephedrine AdvReac Severe UNABLE TO Verified 01/24/22 18:19 VOID Home Meds Home Medications Medication Instructions Recorded Confirmed allopurinol 300 mg tablet 300 mg PO QAM 03/04/20 01/24/22 levothyroxine 112 mcg tablet 112 mcg PO DAILYBB 03/04/20 01/24/22 (Levoxyl) pantoprazole 40 mg tablet,delayed 40 mg PO QAM 12/02/21 01/24/22 release amlodipine 2.5 mg tablet 2.5 mg PO QAM 01/24/22 01/24/22 Results & Data (ED) Vital Signs Vital Signs - 24 hr 01/24/22 16:14 01/24/22 20:01 Temperature 38.3 C H 37.1 C Temperature Source Oral Oral Pulse Rate 105 H Pulse Rate [Finger] 87 Respiratory Rate 16 18 Respiratory Effort / Characteristics Non-Labored Spontaneous Respiratory Depth Normal Respiratory Pattern Regular Blood Pressure 110/64 Blood Pressure [Right Arm] 117/54 L Blood Pressure Mean 79 Blood Pressure Mean [Right Arm] 75 Pulse Oximetry 97 98 Oxygen Delivery Method Room Air Sepsis Recent Fever Within 48 Hours Yes Sepsis New/Unexplained Change in Mental Status N/A Sepsis Action Taken by Nursing No Action Required Laboratory Data Result diagrams: 01/24/22 16:26 01/24/22 16:26 Lab Results 01/24/22 01/24/22 01/24/22 Range/Units 16:26 16:26 16:26 WBC 9.05 (4.8-10.8) K/uL RBC 4.53 L (4.7-6.1) M/uL Hgb 13.1 L (14.0-18.0) g/dL Hct 39.1 L (42-52) % MCV 86.3 (80-100) fL MCH 28.9 (25-34) pg MCHC 33.5 (32-36) g/dL RDW Std Deviation 46.6 H (36.4-46.3) fL RDW Coeff of Maude 14.7 H (11.5-14.5) % Plt Count 73 L (130-400) K/uL MPV 9.5 (7.4-10.4) fL Immature Gran % (Auto) 0.2 % Neut % (Auto) 94.8 % Lymph % (Auto) 2.5 % Wetzel % (Auto) 2.3 % Eos % (Auto) 0.1 % Baso % (Auto) 0.1 % Neut # (Auto) 8.57 H (1.4-6.5) K/uL Lymph # (Auto) 0.23 L (1.2-3.4) K/uL Wetzel # (Auto) 0.21 (0.11-0.59) K/uL Eos # (Auto) 0.01 (0-0.5) K/uL Baso # (Auto) 0.01 (0-0.2) K/uL Immature Gran # (Auto) 0.02 (0.00-0.02) K/uL Platelet Estimate Decreased L (Normal) PT 11.1 (9.0-12.0) Seconds INR 1.0 (0.9-1.1) APTT 22.0 (21.0-31.0) Seconds PTT Ratio 0.8 Sodium 137 (136-145) mmol/L Potassium 4.0 (3.5-5.1) mmol/L Chloride 106 (98-107) mmol/L Carbon Dioxide 23 (21-32) mmol/L Anion Gap 8 (3-11) BUN 20 (6-23) mg/dl Creatinine 1.58 H (0.6-1.4) mg/dl Est Cr Clr Drug Dosing Not Reportable Est GFR ( Amer) 46.8 ml/min Est GFR (Non-Af Amer) 40.4 ml/min BUN/Creatinine Ratio 12.7 (10-20) Glucose 137 H (70-99(Fasting)) mg/dl Lactate (0.4-2.0) mmol/L Calcium 9.2 (8.5-10.1) mg/dl Magnesium 1.6 L (1.7-2.4) mg/dl Total Bilirubin 0.7 (0.2-1.0) mg/dl AST 21 (13-39) U/L ALT 15 (7-52) U/L Alkaline Phosphatase 60 (34-104) U/L Troponin I High Sens 5.9 (0-20) pg/ml Total Protein 6.0 (6.0-8.3) gm/dl Albumin 4.1 (3.4-5.0) gm/dl Globulin 1.9 L (2.5-4.0) gm/dl Albumin/Globulin Ratio 2.2 H (0.9-2) Urine Color Urine Appearance (Clear) Urine pH (4.5-7.5) Ur Specific [place] (1.000-1.030) Urine Protein (Negative) Urine Glucose (UA) (Negative) Urine Ketones (Negative) Urine Blood (Negative) Urine Nitrite (Negative) Urine Bilirubin (Negative) Urine Urobilinogen (Negative) Ur Leukocyte Esterase (Negative) SARS-CoV-2 (PCR) (Negative) Influenza Type A (PCR) (Neg) Influenza Type B (PCR) (Neg) RSV (RT-PCR) (Neg) 01/24/22 01/24/22 01/24/22 Range/Units 16:26 16:26 18:26 WBC (4.8-10.8) K/uL RBC (4.7-6.1) M/uL Hgb (14.0-18.0) g/dL Hct (42-52) % MCV (80-100) fL MCH (25-34) pg MCHC (32-36) g/dL RDW Std Deviation (36.4-46.3) fL RDW Coeff of Maude (11.5-14.5) % Plt Count (130-400) K/uL MPV (7.4-10.4) fL Immature Gran % (Auto) % Neut % (Auto) % Lymph % (Auto) % [place]zel % (Auto) % Eos % (Auto) % Baso % (Auto) % Neut # (Auto) (1.4-6.5) K/uL Lymph # (Auto) (1.2-3.4) K/uL [place]zel # (Auto) (0.11-0.59) K/uL Eos # (Auto) (0-0.5) K/uL Baso # (Auto) (0-0.2) K/uL Immature Gran # (Auto) (0.00-0.02) K/uL Platelet Estimate (Normal) PT (9.0-12.0) Seconds INR (0.9-1.1) APTT (21.0-31.0) Seconds PTT Ratio Sodium (136-145) mmol/L Potassium (3.5-5.1) mmol/L Chloride (98-107) mmol/L Carbon Dioxide (21-32) mmol/L Anion Gap (3-11) BUN (6-23) mg/dl Creatinine (0.6-1.4) mg/dl Est Cr Clr Drug Dosing Est GFR ( Amer) ml/min Est GFR (Non-Af Amer) ml/min BUN/Creatinine Ratio (10-20) Glucose (70-99(Fasting)) mg/dl Lactate 2.8 H* 1.6 (0.4-2.0) mmol/L Calcium (8.5-10.1) mg/dl Magnesium (1.7-2.4) mg/dl Total Bilirubin (0.2-1.0) mg/dl AST (13-39) U/L ALT (7-52) U/L Alkaline Phosphatase (34-104) U/L Troponin I High Sens (0-20) pg/ml Total Protein (6.0-8.3) gm/dl Albumin (3.4-5.0) gm/dl Globulin (2.5-4.0) gm/dl Albumin/Globulin Ratio (0.9-2) Urine Color Urine Appearance (Clear) Urine pH (4.5-7.5) Ur Specific [place] (1.000-1.030) Urine Protein (Negative) Urine Glucose (UA) (Negative) Urine Ketones (Negative) Urine Blood (Negative) Urine Nitrite (Negative) Urine Bilirubin (Negative) Urine Urobilinogen (Negative) Ur Leukocyte Esterase (Negative) SARS-CoV-2 (PCR) NEGATIVE (Negative) Influenza Type A (PCR) Negative (Neg) Influenza Type B (PCR) Negative (Neg) RSV (RT-PCR) Negative (Neg) 01/24/22 Range/Units 19:25 WBC (4.8-10.8) K/uL RBC (4.7-6.1) M/uL Hgb (14.0-18.0) g/dL Hct (42-52) % MCV (80-100) fL MCH (25-34) pg MCHC (32-36) g/dL RDW Std Deviation (36.4-46.3) fL RDW Coeff of Maude (11.5-14.5) % Plt Count (130-400) K/uL MPV (7.4-10.4) fL Immature Gran % (Auto) % Neut % (Auto) % Lymph % (Auto) % [place]zel % (Auto) % Eos % (Auto) % Baso % (Auto) % Neut # (Auto) (1.4-6.5) K/uL Lymph # (Auto) (1.2-3.4) K/uL [place] # (Auto) (0.11-0.59) K/uL Eos # (Auto) (0-0.5) K/uL Baso # (Auto) (0-0.2) K/uL Immature Gran # (Auto) (0.00-0.02) K/uL Platelet Estimate (Normal) PT (9.0-12.0) Seconds INR (0.9-1.1) APTT (21.0-31.0) Seconds PTT Ratio Sodium (136-145) mmol/L Potassium (3.5-5.1) mmol/L Chloride (98-107) mmol/L Carbon Dioxide (21-32) mmol/L Anion Gap (3-11) BUN (6-23) mg/dl Creatinine (0.6-1.4) mg/dl Est Cr Clr Drug Dosing Est GFR ( Amer) ml/min Est GFR (Non-Af Amer) ml/min BUN/Creatinine Ratio (10-20) Glucose (70-99(Fasting)) mg/dl Lactate (0.4-2.0) mmol/L Calcium (8.5-10.1) mg/dl Magnesium (1.7-2.4) mg/dl Total Bilirubin (0.2-1.0) mg/dl AST (13-39) U/L ALT (7-52) U/L Alkaline Phosphatase (34-104) U/L Troponin I High Sens (0-20) pg/ml Total Protein (6.0-8.3) gm/dl Albumin (3.4-5.0) gm/dl Globulin (2.5-4.0) gm/dl Albumin/Globulin Ratio (0.9-2) Urine Color Dark Yellow Urine Appearance Clear (Clear) Urine pH 5.0 (4.5-7.5) Ur Specific [place] 1.018 (1.000-1.030) Urine Protein Negative (Negative) Urine Glucose (UA) Negative (Negative) Urine Ketones Negative (Negative) Urine Blood Negative (Negative) Urine Nitrite Negative (Negative) Urine Bilirubin Negative (Negative) Urine Urobilinogen Negative (Negative) Ur Leukocyte Esterase Negative (Negative) SARS-CoV-2 (PCR) (Negative) Influenza Type A (PCR) (Neg) Influenza Type B (PCR) (Neg) RSV (RT-PCR) (Neg) Administered Medications Vancomycin HCl 1,750 mg/ (Sodium Chloride) 535 mls @ 200 mls/hr IV ONE ONE Stop: 01/24/22 23:40 Last Admin: 01/24/22 21:33 Dose: 200 mls/hr Documented by: [id number] Discontinued Medications Acetaminophen (Acetaminophen 325 Mg Tab) 650 mg PO NOW STA Stop: 01/24/22 17:26 Last Admin: 01/24/22 19:20 Dose: 650 mg Documented by: [id number] Sodium Chloride (Nss 1000ml) 1,000 mls @ 999 mls/hr IV .Q1H1M ONE Stop: 01/24/22 18:25 Last Infusion: 01/24/22 20:52 Dose: 0 mls/hr Documented by: [id number] Admin: 01/24/22 19:20 Dose: 999 mls/hr Documented by: [id number] Ceftriaxone Sodium (Rocephin) 1,000 mg in 50 mls @ 100 mls/hr IV NOW STA Stop: 01/24/22 17:54 Last Infusion: 01/24/22 21:35 Dose: 0 mls/hr Documented by: [id number] Admin: 01/24/22 20:50 Dose: 100 mls/hr Documented by: [id number] Imaging Data Radiologist's Impression: Chest X-Ray 01/24/22 16:17 XR chest 1V portable CLINICAL HISTORY: SEPSIS TECHNIQUE: Single frontal radiograph of the chest was obtained. Comparison: Comparison is made to chest radiograph 12/02/2021 FINDINGS: No lines and tubes are seen. The cardiomediastinal silhouette is normal. The lungs are clear. No evidence of pleural effusion or pneumothorax. IMPRESSION: No acute chest disease. ACT 112: Negative or not required by law. Electronically signed by: Cristian Valdez M.D. 01/24/2022 5:07 PM Discharge Plan Visit Data Chief Complaint: Fever Stated Complaint: TREMBLING, FEVER ED Provider: Boudreaux,Chalo M Prescriptions Prescriptions: No Action allopurinol 300 mg tablet 300 mg PO QAM RF: 0 levothyroxine [Levoxyl] 112 mcg tablet 112 mcg PO DAILYBB RF: 0 pantoprazole 40 mg tablet,delayed release (DR/EC) 40 mg PO QAM RF: 0 amlodipine 2.5 mg tablet 2.5 mg PO QAM RF: 0
[2022-01-24] MEDS ORDERED: PIPERACILL/TAZOBAC CONSULT ACTIVE PRN (19:10)
[2022-01-24 19:41] LABS: Appearance Urine Clear (Clear); Bilirubin Urine Negative (Negative); Blood Urine Negative (Negative); Color Urine Dark Yellow; Glucose Urine UA Negative (Negative); Ketones Urine Negative (Negative); Leukocyte Esterase Urine Negative (Negative); Nitrite Urine Negative (Negative); Protein Urine Negative (Negative); Specific Gravity Urine 1.018 (1.000-1.030); Urobilinogen Urine Negative (Negative)
[2022-01-24] MEDS ORDERED: VANCOMYCIN CONSULT ACTIVE PRN (20:43)
[2022-01-24] MEDS ORDERED: VANCOMYCIN HCL 1,750 MG in SODIUM CHLORIDE 0.9% 500 ML IV ONE (21:00)
--- NOTE | 2022-01-24 21:13 | History & Physical Report ---
Date of Service January 24, 2022 Assessment & Plan (1) Fever: (2) S/P cystoscopy: Plan: Admit to [facility] Patient presenting from home with reports of sudden onset of rigors, nausea, vomiting after routine screening cystoscopy today. Patient with history of bladder cancer s/p BCG treatments. In the ED, febrile 38.3, WBC 9K, lactic acid 2.8 --> 1.6. Possible early sepsis. Received IV ceftriaxone in the ED, will continue with and also add vancomycin Follow cultures Urology consult (3) Hypertension: Plan: Continue amlodipine (4) Hypothyroid: Plan: Continue levothyroxine (5) Chronic idiopathic thrombocytopenia: Plan: Platelets 73K, slightly lower than recent baseline Monitor CBC (6) DVT prophylaxis: Plan: SQ heparin History of Present Illness Chief Complaint: Shaking chills, nausea Primary Care Provider: Keanu Paris DO 81-year-old male with PMH bladder cancer s/p BCG treatments, remote history of DVT s/p 6 months of Coumadin therapy, HTN, hypothyroidism, GERD, CKD stage III, and other problems listed below who presents the ED for evaluation of shaking chills and nausea. Patient was at the urology office today for routine follow- up screening cystoscopy for bladder cancer. Patient reports that shortly after returning home, he had sudden onset of shaking chills, nausea, 1 episode of vomiting. Patient then presented to the ED for further evaluation. Patient denies hematemesis and coffee-ground emesis. No abdominal pain. Reports he otherwise has been feeling well recently. Denies chest pain or shortness of breath. Has been having intermittent lightheadedness with standing, amlodipine recently reduced to 2.5 mg by PCP. No syncopal events. Denies abdominal pain. No dysuria or hematuria. In the ED, patient was febrile at 38.3. Labs are unremarkable/at patient's baseline. Patient was given p.o. Tylenol and IV ceftriaxone. Allergies Allergy/AdvReac Type Severity Reaction Status Date / Time Penicillins Allergy Intermediate Hives Verified 01/24/22 18:19 ciprofloxacin Allergy Unknown "EYES Verified 01/24/22 18:19 ITCHY AND BURNING" guaifenesin AdvReac Severe UNABLE TO Verified 01/24/22 18:19 VOID pseudoephedrine AdvReac Severe UNABLE TO Verified 01/24/22 18:19 VOID Home Medications Medication Instructions Recorded Confirmed Type allopurinol 300 mg tablet 300 mg PO QAM 03/04/20 01/24/22 History levothyroxine 112 mcg tablet 112 mcg PO DAILYBB 03/04/20 01/24/22 History (Levoxyl) pantoprazole 40 mg tablet,delayed 40 mg PO QAM 12/02/21 01/24/22 History release amlodipine 2.5 mg tablet 2.5 mg PO QAM 01/24/22 01/24/22 History Past Med/Surg History Medical History Benign prostatic hyperplasia with urinary obstruction Carcinoma of bladder Chronic idiopathic thrombocytopenia Gout Hearing loss Hypertension Hypothyroid Peripheral vascular disease Venous thrombosis of lower extremity Surgical History H/O cystoscopy H/O sinus surgery History of inguinal hernia repair, bilateral History of nephrectomy, left Hx laparoscopic cholecystectomy (12/03/21) Laparoscopic Cholecystectomy - Paddy Mendez DO, FACS 12/03/2021 Family History Unknown FHx: bladder cancer History of nephrolithiasis Cancer Social History Smoking Status: Never smoker Hx Alcohol Use: No Hx Substance Use: No Preferred Language: Montenegrin Communication Ability: Effective Visual Impairment: No Limitations Hardware Developer Required: No Beliefs That Will Affect Care: None marital status: Current Living Situation: Spouse and Family current occupational status: retired Feels Safe at Home: Yes Assistive Devices: None Review of Systems Review of Systems: ROS per HPI, all other systems reviewed and negative Physical Exam Physical Exam: please refer to Dr. Combs's addendum for physical exam Results & Data Results & Data ([facility]) Vital Signs (Past 12 Hours) Vital Signs Temp Pulse Pulse Resp BP BP Pulse Ox 01/24/22 20:01 37.1 C 87 18 117/54 L 98 01/24/22 16:14 38.3 C H 105 H 16 110/64 97 Laboratory Results Short CBC 01/24/22 Range/Units 16:26 WBC 9.05 (4.8-10.8) K/uL Hgb 13.1 L (14.0-18.0) g/dL Hct 39.1 L (42-52) % Plt Count 73 L (130-400) K/uL BMP 01/24/22 16:26 Sodium 137 Potassium 4.0 Chloride 106 Carbon Dioxide 23 BUN 20 Creatinine 1.58 H Glucose 137 H Calcium 9.2 Liver Function 01/24/22 Range/Units 16:26 Total Bilirubin 0.7 (0.2-1.0) mg/dl AST 21 (13-39) U/L ALT 15 (7-52) U/L Alkaline Phosphatase 60 (34-104) U/L Albumin 4.1 (3.4-5.0) gm/dl Urine 01/24/22 Range/Units 19:25 Urine Color Dark Yellow Urine Appearance Clear (Clear) Urine pH 5.0 (4.5-7.5) Ur Specific [place] 1.018 (1.000-1.030) Urine Protein Negative (Negative) Urine Glucose (UA) Negative (Negative) Diagnostic Findings Chest X-Ray 01/24/22 16:17 XR chest 1V portable CLINICAL HISTORY: SEPSIS TECHNIQUE: Single frontal radiograph of the chest was obtained. Comparison: Comparison is made to chest radiograph 12/02/2021 FINDINGS: No lines and tubes are seen. The cardiomediastinal silhouette is normal. The lungs are clear. No evidence of pleural effusion or pneumothorax. IMPRESSION: No acute chest disease. ACT 112: Negative or not required by law. Electronically signed by: Cristian Valdez M.D. 01/24/2022 5:07 PM Code Status & VTE Plan Code Status Patient is a full code as per Dr. Combs's discussion with him. VTE Prophylaxis Plan VTE Prophylaxis will be ordered: Yes Supervising Physician Co-Signing Physician Notes Pt is a 81 y/o M with hx of CKD III, Bladder Ca s/p BCG tx, hx of ITP, thrombocytopenia, hx of DVT, hypothyroidism, recent hx of cholecystitis s/p cholecystectomy admitted for fever after cystoscopy (routine). PE: NAD, well developed Cardiac: Normal S1/S2, no murmur Lungs: CTA, no wheezing or crackles Abd: ND, NT, soft MSK: trace pitting edema of b/l LE Psych: AAOx3, normal affect A/P: Fever with elevated LA: -VSS in the ER - LA improved with fluids - Pt had routine cystoscopy today morning - at bedside denied any acute symptoms - will treat as potential UTI with Ceftriaxone and vanc (due to recent procedure) -Urology consult - UCx and BCx sent Other chronic conditions: plan as above Agree with A/P by BRENNA Ramsey
[2022-01-24] MEDS ORDERED: Patient's HEIGHT &/or WEIGHT Needed SCH (21:15)
[2022-01-24] MEDS ORDERED: ONDANSETRON INJ 2 MG/ML 2 ML VIAL IV PRN (21:59)
[2022-01-24] MEDS ORDERED: ACETAMINOPHEN 325 MG TAB PO PRN (21:59)
[2022-01-24] MEDS: HEPARIN SOD 5,000 UNIT/0.5 ML VIAL SQ SCH (23:56)
[2022-01-24] MEDS: SODIUM CHLORIDE 0.9% 1000ML 1,000 ML IV SCH (23:56)
[2022-01-25] MEDS: LEVOTHYROXINE SODIUM 112 MCG TABLET PO SCH (05:54)
[2022-01-25] MEDS: SODIUM CHLORIDE 0.9% 1000ML 1,000 ML IV SCH ×3 (08:10→19:10)
[2022-01-25 08:21] LABS: Hematocrit (blood only) 34.9 % (42-52); Hemoglobin 11.4 g/dL (14.0-18.0); Mean Corpuscular Hemoglobin 28.1 pg (25-34); Mean Corpuscular Hgb Conc 32.7 g/dL (32-36); RDW Coefficient of Variation 14.9 % (11.5-14.5); RDW Standard Deviation 46.8 fL (36.4-46.3); Red Blood Count 4.06 M/uL (4.7-6.1); White Blood Count 4.45 K/uL (4.8-10.8)
[2022-01-25 08:22] LABS: Platelet Count 71 K/uL (130-400)
[2022-01-25 08:38] LABS: Calcium 8.4 mg/dl (8.5-10.1); Creatinine Clr Calc Pharmacy 37.2 ml/min; Est GFR (African American) 45.8 ml/min; Est GFR (Non-African American) 39.5 ml/min; Potassium 4.1 mmol/L (3.5-5.1)
[2022-01-25] MEDS: amLODIPine BESYLATE 5 MG TAB PO SCH (08:52)
[2022-01-25] MEDS: PANTOprazole 40 MG TAB PO SCH (08:52)
[2022-01-25] MEDS: HEPARIN SOD 5,000 UNIT/0.5 ML VIAL SQ SCH ×2 (08:52→20:01)
[2022-01-25] MEDS: allopurinoL 300 MG TAB PO SCH (08:52)
--- NOTE | 2022-01-25 09:29 | Pharmacy Report ---
Pharmacy Vanc AUC Short Note - Date of Service January 25, 2022 - Assessment & Plan Assessment 81 year old M receiving Vancomycin for treatment of complicated UTI. Blood cultures pending. Patient received a loading dose of Vancomycin 1750 mg IV (21 mg/kg) yesterday @0. Random Vancomycin level obtained this AM = 11.3 mcg/ml. Patient with CKD- stage 3. Plan to start maintenance Vancomycin today with conservative dosing. Day #2 of antimicrobial therapy. Plan Vancomycin * AUC/FRANCIS is the preferred PK/PD target for vancomycin * AUC guided dosing is effective and associated with decreased risk of nephrotoxicity compared to traditional trough targets * Vancomycin 1 gm (12 mg/kg) IV q24h ordered this AM. * With this dosing expect trough level of ~15 mcg/mL which is predicted to achieve target AUC/FRANCIS of 400-600 mg/L.hr and may be associated with a 12% risk of nephrotoxicity * Random Vanc level ordered on 01/27 with AM labs after two maintenance doses. Pharmacy will continue to follow and will adjust dose/frequency as necessary. Thank you.
--- NOTE | 2022-01-25 09:49 | Urology Consultation ---
Date of Consultation January 25, 2022 Assessment & Plan (1) Sepsis: (2) S/P cystoscopy: (3) History of bladder cancer: Sepsis after in office cystoscopy yesterday Continue broad-spectrum antibiotics (Zosyn) for the time being Cultures are still pending I presume that he has a Bactrim resistant bacteria, fortunately he seems to responded very well to broad-spectrum antibiotics and IV hydration I think that she is caught very early Ultimately will need to complete a 7-day course of antibiotics As soon as his culture results are returned I think he is stable for discharge History of Present Illness Attending Physician: Henrique Morelos MD History of Present Illness 81-year-old gentleman who underwent in office cystoscopy yesterday morning as part of his routine bladder cancer surveillance He felt well initially afterwards but developed shaking chills and fevers in the afternoon This prompted a return visit to the ER Upon arrival he had an elevated lactate as well as tachycardia, temperature, other findings concerning for bacteremia/sepsis He was initiated on broad-spectrum antibiotics and hydrated aggressively He feels worlds better this morning He has no fevers or chills He has no intake He is urinating adequately His cultures are still pending but he denies any of the symptoms he experienced prior to return to the hospital Of note, he did receive a dose of Bactrim immediately after the procedure yesterday Allergies Allergy/AdvReac Type Severity Reaction Status Date / Time Penicillins Allergy Intermediate Hives Verified 01/24/22 18:19 ciprofloxacin Allergy Unknown "EYES Verified 01/24/22 18:19 ITCHY AND BURNING" guaifenesin AdvReac Severe UNABLE TO Verified 01/24/22 18:19 VOID pseudoephedrine AdvReac Severe UNABLE TO Verified 01/24/22 18:19 VOID Home Medications Medication Instructions Recorded Confirmed Type allopurinol 300 mg tablet 300 mg PO QAM 03/04/20 01/24/22 History levothyroxine 112 mcg tablet 112 mcg PO DAILYBB 03/04/20 01/24/22 History (Levoxyl) pantoprazole 40 mg tablet,delayed 40 mg PO QAM 12/02/21 01/24/22 History release amlodipine 2.5 mg tablet 2.5 mg PO QAM 01/24/22 01/24/22 History Patient History Medical History Benign prostatic hyperplasia with urinary obstruction Carcinoma of bladder Chronic idiopathic thrombocytopenia Gout Hearing loss Hypertension Hypothyroid Peripheral vascular disease Venous thrombosis of lower extremity Surgical History H/O cystoscopy H/O sinus surgery History of inguinal hernia repair, bilateral History of nephrectomy, left Hx laparoscopic cholecystectomy (12/03/21) Laparoscopic Cholecystectomy - Paddy Mendez DO, FACS 12/03/2021 Family History Unknown FHx: bladder cancer History of nephrolithiasis Cancer Social History Smoking Status: Never smoker Second Hand Exposure: No; Do You Dip or Chew Tobacco: No; Hx Alcohol Use: No Hx Substance Use: No Preferred Language: Macedonian Communication Ability: Effective Visual Impairment: No Limitations Outside Sales Representative Required: No Beliefs That Will Affect Care: None marital status: Current Living Situation: Spouse and Family Current Living Situation Comment: and daughter current occupational status: retired Other Information That Helps Us Care for You: No Feels Safe at Home: Yes Safety Concerns: Feels Safe At This Time Assistive Devices: None Physical Exam Constitutional: well developed and well nourished Neck: neck nontender Respiratory: normal respiratory effort; no respiratory distress and does not use accessory muscles Cardiovascular: Rate/Rhythm: regular rate Vessels: radial pulses present Extremities: no edema Gastrointestinal (Abdomen): Inspection/Auscultation: abdomen normal to inspection Percussion/Palpation: abdomen soft; abdomen nontender and no guarding Musculoskeletal: Head/Neck/Chest: normocephalic and head atraumatic Extremities: extremities normal to inspection Skin: no rashes and no lesions Trauma: no evidence of skin trauma Neurologic: awake; not obtunded Speech / Cognition: normal speech Motor/Sensory: no tremor Psychiatric: Orientation: alert and oriented x 3 Genitourinary: no CVA tenderness Lymphatic: no lymphadenopathy Results & Data ([facility]) Vital Signs (Past 12 Hours) Vital Signs Temp Pulse Resp BP Pulse Ox 01/25/22 07:53 36.9 C 68 16 164/71 H 96 01/24/22 23:25 36.4 C L 58 L 15 125/62 99 01/24/22 22:00 37 C 89 18 99 PG Care Time/CCT Total # of Minutes Spent Total Time Spent with Patient: Total time spent is greater than 50% in coordination of care (as documented) at patient's floor/unit and/or counseling patient: Coding Level of Care Code 54527 Inpt Consult Level 3 Diagnoses Sepsis A41.9 S/P cystoscopy Z98.890 History of bladder cancer Z85.51
[2022-01-25] MEDS: VANCOMYCIN HCL 1,000 MG in SODIUM CHLORIDE 0.9% 250 ML IV SCH (10:55)
[2022-01-25] MEDS ORDERED: cefTRIAXone SODIUM 2,000 MG in DEXTROSE 5% 50 ML IV SCH (18:00)
--- NOTE | 2022-01-25 20:15 | Hospitalist Progress Note ---
Date of Service January 25, 2022 Assessment & Plan (1) Fever: (2) S/P cystoscopy: Plan: Suspected sepsis Fever S/P cystoscopy H/O bladder cancer S/P BCG treatments. Lactic acidosis SIRS --CXR:No acute chest disease. --UA normal Blood Cx:Negative to date Appreciate urology input Empirically on vancomycin, Rocephin Follow-up final cultures No obvious source of infection (3) Hypertension: Plan: Continue amlodipine with holding parameters (4) Hypothyroid: Plan: Continue levothyroxine (5) Chronic idiopathic thrombocytopenia: Plan: Monitor (6) DVT prophylaxis: Plan: SQ heparin Admission and Anticipated Discharge Date Admission Date: January 24, 2022 Subjective Patient is seen and examined at bedside Headache resolved Dizziness resolved as well Offers no complaints today Ambulating in hallways with no issues Review of Systems Review of Systems: All systems reviewed & are unremarkable except as noted in Subjective Physical Exam Physical Exam: Physical Exam: Vitals signs as noted above General Appearance:Moderately built and nourished, no apparent distress Head: normocephalic, Atraumatic Eyes: normal inspection, EOMI Neck: supple, Trachea midline Respiratory/Chest: Normal breath sounds, CTA, No accessory muscle use Cardiovascular: S1, S2, No murmur Abdomen/GI:Soft, Non tender, Bowel sounds present Extremities/Musculoskeletal:normal inspection, no edema Neurologic/Psych:AAOX3, grossly no focal neurological deficits Skin: normal color, warm Results & Data Results & Data ([facility]) Vital Signs (Past 12 Hours) Vital Signs Temp Pulse Resp BP Pulse Ox 01/25/22 15:38 36.5 C 51 L 16 112/62 98 01/25/22 11:19 130/69 Laboratory Results Short CBC 01/25/22 Range/Units 08:00 WBC 4.45 L (4.8-10.8) K/uL Hgb 11.4 L (14.0-18.0) g/dL Hct 34.9 L (42-52) % Plt Count 71 L (130-400) K/uL BMP 01/25/22 08:00 Sodium 139 Potassium 4.1 Chloride 110 H Carbon Dioxide 26 BUN 21 Creatinine 1.61 H Glucose 97 Calcium 8.4 L
[2022-01-26] MEDS: SODIUM CHLORIDE 0.9% 1000ML 1,000 ML IV SCH (05:05)
[2022-01-26] MEDS: LEVOTHYROXINE SODIUM 112 MCG TABLET PO SCH (06:01)
[2022-01-26 07:03] LABS: BUN Creatinine Ratio 13.2 (10-20); Calcium 8.4 mg/dl (8.5-10.1); Creatinine Clr Calc Pharmacy 39.6 ml/min; Est GFR (African American) 49.5 ml/min; Est GFR (Non-African American) 42.7 ml/min; Potassium 4.2 mmol/L (3.5-5.1)
[2022-01-26 07:09] LABS: Hemoglobin 11.5 g/dL (14.0-18.0); Mean Corpuscular Hemoglobin 28.8 pg (25-34); Mean Corpuscular Hgb Conc 32.9 g/dL (32-36); Mean Corpuscular Volume 87.7 fL (80-100); RDW Standard Deviation 48.3 fL (36.4-46.3); Red Blood Count 3.99 M/uL (4.7-6.1); White Blood Count 4.09 K/uL (4.8-10.8)
[2022-01-26 07:11] LABS: Platelet Count 68 K/uL (130-400)
[2022-01-26] MEDS: amLODIPine BESYLATE 5 MG TAB PO SCH (09:16)
[2022-01-26] MEDS: allopurinoL 300 MG TAB PO SCH (09:16)
[2022-01-26] MEDS: PANTOprazole 40 MG TAB PO SCH (09:16)
[2022-01-26] MEDS: HEPARIN SOD 5,000 UNIT/0.5 ML VIAL SQ SCH (09:17)
[2022-01-26] MEDS: VANCOMYCIN HCL 1,000 MG in SODIUM CHLORIDE 0.9% 250 ML IV SCH (10:38)
--- NOTE | 2022-01-26 12:56 | Electrocardiogram Report ---
Test Reason : Blood Pressure : / mmHG Vent. Rate : 091 BPM Atrial Rate : 091 BPM P-R Int : 236 ms QRS Dur : 084 ms QT Int : 322 ms P-R-T Axes : -01 012 085 degrees QTc Int : 396 ms Sinus rhythm with 1st degree A-V block Otherwise normal ECG When compared with ECG of 04-DEC-2021 03:52, Premature atrial complexes are no longer Present Vent. rate has increased BY 52 BPM Criteria for Inferior infarct are no longer Present Confirmed by Juan Solorio ([id number]) on 01/26/2022 12:55:54 PM Referred By: Edward Galvan Confirmed By:Juan Solorio
--- NOTE | 2022-01-26 13:03 | Hospitalist Progress Note ---
Date of Service January 26, 2022 Assessment & Plan (1) Fever: (2) S/P cystoscopy: Plan: Suspected sepsis Fever S/P cystoscopy H/O bladder cancer S/P BCG treatments. Lactic acidosis SIRS --CXR:No acute chest disease. --UA normal Blood Cx:Negative to date Appreciate urology input Empirically received vancomycin, Rocephin No obvious source of infection Will DC antibiotics (3) Hypertension: Plan: Continue amlodipine with holding parameters (4) Hypothyroid: Plan: Continue levothyroxine (5) Chronic idiopathic thrombocytopenia: Plan: Monitor (6) DVT prophylaxis: Plan: SQ heparin Admission and Anticipated Discharge Date Admission Date: January 24, 2022 Subjective Patient is seen and examined at bedside States feeling well today Offers no complaints Denies any chest pain, shortness of breath, dizziness, nausea, abdominal pain Blood cultures negative to date Review of Systems Review of Systems: All systems reviewed & are unremarkable except as noted in Subjective Physical Exam Physical Exam: Physical Exam: Vitals signs as noted above General Appearance:Moderately built and nourished, no apparent distress Head: normocephalic, Atraumatic Eyes: normal inspection, EOMI Neck: supple, Trachea midline Respiratory/Chest: Normal breath sounds, CTA, No accessory muscle use Cardiovascular: S1, S2, No murmur Abdomen/GI:Soft, Non tender, Bowel sounds present Extremities/Musculoskeletal:normal inspection, no edema Neurologic/Psych:AAOX3, grossly no focal neurological deficits Skin: normal color, warm Results & Data Results & Data ([facility]) Vital Signs (Past 12 Hours) Vital Signs Temp Pulse Resp BP Pulse Ox 01/26/22 07:18 36.9 C 67 16 143/71 H 95 Laboratory Results Short CBC 01/26/22 Range/Units 05:35 WBC 4.09 L (4.8-10.8) K/uL Hgb 11.5 L (14.0-18.0) g/dL Hct 35.0 L (42-52) % Plt Count 68 L (130-400) K/uL BMP 01/26/22 05:35 Sodium 142 Potassium 4.2 Chloride 112 H Carbon Dioxide 23 BUN 20 Creatinine 1.51 H Glucose 96 Calcium 8.4 L
--- NOTE | 2022-01-26 13:06 | Discharge Summary ---
Date of Service January 26, 2022 Admission HPI Per Admitting Provider 81-year-old male with PMH bladder cancer s/p BCG treatments, remote history of DVT s/p 6 months of Coumadin therapy, HTN, hypothyroidism, GERD, CKD stage III, and other problems listed below who presents the ED for evaluation of shaking chills and nausea. Patient was at the urology office today for routine follow- up screening cystoscopy for bladder cancer. Patient reports that shortly after returning home, he had sudden onset of shaking chills, nausea, 1 episode of vomiting. Patient then presented to the ED for further evaluation. Patient denies hematemesis and coffee-ground emesis. No abdominal pain. Reports he otherwise has been feeling well recently. Denies chest pain or shortness of breath. Has been having intermittent lightheadedness with standing, amlodipine recently reduced to 2.5 mg by PCP. No syncopal events. Denies abdominal pain. No dysuria or hematuria. In the ED, patient was febrile at 38.3. Labs are unremarkable/at patient's baseline. Patient was given p.o. Tylenol and IV ceftriaxone. Admission Exam Per Admitting Provider PE: NAD, well developed Cardiac: Normal S1/S2, no murmur Lungs: CTA, no wheezing or crackles Abd: ND, NT, soft MSK: trace pitting edema of b/l LE Psych: AAOx3, normal affect Principal Diagnosis Suspected sepsis Fever S/P cystoscopy Discharge Data Allergies Allergy/AdvReac Type Severity Reaction Status Date / Time Penicillins Allergy Intermediate Hives Verified 01/24/22 18:19 ciprofloxacin Allergy Unknown "EYES Verified 01/24/22 18:19 ITCHY AND BURNING" guaifenesin AdvReac Severe UNABLE TO Verified 01/24/22 18:19 VOID pseudoephedrine AdvReac Severe UNABLE TO Verified 01/24/22 18:19 VOID Consultations 01/24/22 17:58 ED Decision to Admit Stat 01/24/22 21:59 Consult Urology Routine Hospital Course (1) Fever: (2) S/P cystoscopy: Suspected sepsis Fever S/P cystoscopy H/O bladder cancer S/P BCG treatments. Lactic acidosis SIRS --CXR:No acute chest disease. --UA normal Blood Cx:Negative to date Appreciate urology input Empirically received vancomycin, Rocephin No obvious source of infection Will DC antibiotics (3) Hypertension: Continue amlodipine with holding parameters (4) Hypothyroid: Continue levothyroxine (5) Chronic idiopathic thrombocytopenia: Monitor (6) DVT prophylaxis: SQ heparin Total Time Total Time Spent Total Time Spent (In Minutes): 40 minutes Discharge Plan Discharge Items Patient Disposition: Home - Self-Care Reason For Visit: TREMBLING, FEVER Discharge Diagnosis: Suspected sepsis Fever S/P cystoscopy Activity: Per Instructions section Exercise/Sports: Gradually increase as tolerated Non-emergency contact: Primary Care Provider Call non-emergency contact if: you have any medication questions, your symptoms worsen, your pain is concerning for you and you have a fever Follow-up/Referrals: Keanu Paris, DO [Primary Care Provider] - Diet: Heart Healthy Addtl Attending Provider Instructions: Follow-up with your primary care physician Dr. Keanu Paris in 1 week as advised. Please call for appointment. --- Your final blood cultures are pending at the time of discharge. Follow-up with your physician for results. --- Check your blood pressure regularly as advised. Discussed with your physician for further need for adjustment of any blood pressure medications as needed. Seek immediate medical attention if your symptoms reoccur or worsen Please take all medications as instructed on discharge list below. Please call if you have any questions or problems. You can reach a [facility] hospitalist on duty at [facility] 24 hours a day by calling [phone] Pending Studies at Discharge: Yes Studies:: Blood Cultures Stand-Alone Forms: My [facility] [employer], Smoking Cessation Medications and DC Order Prescriptions: Continued allopurinol 300 mg tablet 300 mg PO QAM RF: 0 levothyroxine [Levoxyl] 112 mcg tablet 112 mcg PO DAILYBB RF: 0 pantoprazole 40 mg tablet,delayed release (DR/EC) 40 mg PO QAM RF: 0 amlodipine 2.5 mg tablet 2.5 mg PO QAM RF: 0 Discharge Orders: Discharge Order (Routine); Ordered 01/26/22 Ordered By: Henrique Morelos Admission Data Admit Date/Time: 01/24/22 18:41 Attending Provider: Henrique Morelos Admit Provider: Abhijit Combs Primary Care Provider: Keanu Paris Other Providers: Abhijit Cmobs ; Brijesh Cole
== END 2022-01-26 16:11 | disposition home or self-care (01) ==
LOC: EDINP 16:00 → ED 16:00 → SUATTDRO 18:41 → 3W 21:59

== ENCOUNTER 2024-11-17 06:43 | Observation (INO) ==
--- NOTE | 2024-10-17 10:39 | PAT Medication Instructions ---
Medication Instructions Date of Service October 17, 2024 Home Medications allopurinol 300 mg tablet 300 mg PO QAM levothyroxine 112 mcg tablet (Levoxyl) 112 mcg PO QAM pantoprazole 40 mg tablet,delayed release 40 mg PO QAM [id number]-[id number] 300 mcg-K 60 mcg-lycop 600 mcg-lutein 300 mcg tablet (Centrum Silver Men) 1 tab PO QAM STOP taking 2 weeks before surgery pmlrzjwl-bm-vrinz 300 mcg-K 60 mcg-lycop 600 mcg-lutein 300 mcg tablet (Centrum Silver Men) 1 tab PO QAM Take morning of surgery With a small sip of water, OTHERWISE NOTHING TO EAT OR DRINK AFTER MIDNIGHT: allopurinol 300 mg tablet 300 mg PO QAM levothyroxine 112 mcg tablet (Levoxyl) 112 mcg PO QAM pantoprazole 40 mg tablet,delayed release 40 mg PO QAM Other Notes If you have any questions please call us at [phone] or [phone] or [phone] or [phone]
--- NOTE | 2024-10-27 11:25 | Anesthesiology Consultation ---
Date of Service October 27, 2024 Assessment & Plan (1) Encounter for pre-operative examination: - check CBC with diff STAT am DOS given chronic thrombocytopenia. - Case discussed in detail with Dr. Dooley who advised patient will need S medical clearance response, PAT testing to be faxed to Dr. Paris's office as also requested from his 10/22/24 office note; he also advised repeating CBC with diff DOS. Patient made aware. - Outpatient joint assessment: Patient is currently scheduled for inpatient pathway. If re-evaluated and patient/surgeon requests outpatient pathway, patient is not a candidate for outpatient joint program. Chart Review Chart Review: Pending: Refer to Additional Notes / Consult section and Patient seen in Pre Admission Testing Teaching & Discussion Pre-Anesthesia Teaching/Discussion Notes: Instructed NPO after midnight before surgery, except medications with 15 cc of water. Medication instructions provided according to the PAT guidelines. History Surgery Operation Date: 11/17/24 08:50 Proposed Procedures p Right Unicompartmental Knee versus - Norm Mccoy MD s Total Knee Arthroplasty - Norm Mccoy MD Height/Weight Height: 5 ft 8 in Weight: 81.8 kg Allergies Allergy/AdvReac Type Severity Reaction Status Date / Time Penicillins Allergy Intermediate Hives Verified 10/16/24 10:52 ciprofloxacin Allergy Unknown "EYES Verified 10/16/24 10:52 ITCHY AND BURNING" guaifenesin AdvReac Severe UNABLE TO Verified 10/16/24 10:52 VOID pseudoephedrine AdvReac Severe UNABLE TO Verified 10/16/24 10:52 VOID Medications Home Medications Medication Instructions Recorded Confirmed Last Taken allopurinol 300 mg tablet 300 mg PO QAM 03/04/20 10/16/24 01/24/22 levothyroxine 112 mcg tablet 112 mcg PO QAM 03/04/20 10/16/24 01/24/22 (Levoxyl) pantoprazole 40 mg tablet,delayed 40 mg PO QAM 12/02/21 10/16/24 01/24/22 release bbcjcbpe-he-rmqvl 300 mcg-K 60 1 tab PO QAM 10/16/24 10/16/24 Unknown mcg-lycop 600 mcg-lutein 300 mcg tablet (Centrum Silver Men) Past Medical History Medical History (Updated 10/28/24 @ 09:03 by Willow Mederos PA-C) BPH with urinary obstruction hx Carcinoma of bladder dx 2005, s/p TURBT Chronic idiopathic thrombocytopenia hx Hearing loss History of hypertension Hx of deep venous thrombosis (~2005) Post-op bladder surgery, completed 6 months of coumadin therapy Hx of gastroesophageal reflux (GERD) controlled, stable per pt Hx of gout controlled, stable per pt Hypothyroidism Peripheral vascular disease Patient denies h/o stroke, seizures, heart attack, heart failure, DM, or blood transfusions. Exercise / Class Metabolic Activity II 4-5 Yardwork/Stairs/Walk up hill (denies chest discomfort or shortness of breath with one flight of stairs) Past Family History Family History Unknown FHx: bladder cancer History of nephrolithiasis Cancer Past Surgical History Surgical History H/O cystoscopy hx had routinely due to hx bladder CA H/O sinus surgery History of inguinal hernia repair, bilateral History of nephrectomy, left age 15 History of transurethral resection of bladder tumor (TURBT) 2005 Hx laparoscopic cholecystectomy w/ERCP; Laparoscopic Cholecystectomy - Paddy Mendez DO, FACS 12/03/2021 Hx of colonoscopy Past Anesthesia History No Hx of Anesthesia Complications and No Family Hx of Anesthesia Complications History of PONV No Hx of PONV and No Hx of Motion Sickness Social History Smoking Status: Never smoker Do You Dip or Chew Tobacco: No Hx Alcohol Use: No Hx Substance Use: No substance use type: does not use Review of Systems Patient denies chest pain, shortness of breath, dyspnea on exertion, snoring, witnessed apneas, fever, chills, cough, wheezing, or palpitations. Physical Exam Vital Signs Vitals BP 132/70 P 67 TEMP 98.0 SP02 98% on RA RESP 18 Physical Patient resting comfortably in chair in no acute distress, alert and oriented, responding appropriately throughout visit Full cervical extension range of motion without pain TMD 3.5 finger breadths Mallampati Score 2 Dentition: intact, denies chipped or loose teeth, caps/crowns, implants or bridges Lungs: normal respiratory effort. Good air movement, clear throughout to auscultation, no adventitious breath sounds Cardiac: regular rate and rhythm, no murmurs noted Carotid arteries: negative bruit bilat Lab Results Anesthesia Preop Results Results Anesthesia Widget: WBC 7.16 K/ul (4.8-10.8) 10/27/24 Hgb 14.6 g/dl (14.0-18.0) 10/27/24 Hct 45.0 % (42.0-52.0) 10/27/24 Plt 98 K/uL (130-400) L 10/27/24 Na 141 mmol/L (136-145) 10/27/24 K 4.3 mmol/L (3.5-5.1) 10/27/24 Cl 104 mmol/L (98-107) 10/27/24 CO2 29 mmol/L (21-32) 10/27/24 BUN 25 mg/dl (6-23) H 10/27/24 Creat 1.47 mg/dl (0.6-1.4) H 10/27/24 Glucose Level 98 mg/dl (70-99(Fasting)) 10/27/24 PT 10.6 Seconds (9.0-12.0) 10/27/24 PTT 27 Seconds (21-31) 10/27/24 INR 1.0 (0.9-1.1) 10/27/24 Blood Type A Positive 10/27/24 Antibody Screen NEGATIVE 10/27/24 Testing Laboratory Results Chronic idiopathic thrombocytopenia, platelets 98,000 from 68,000 in 2021. Electrocardiogram Date: 10/27/24 Sinus rhythm with sinus arrhythmia with 1st degree AV block, rate 62 bpm Possible anterior infarct, age undetermined No significant change vs 01/24/22 EKG Chest X-Ray Date: 10/27/24 No acute findings.
--- NOTE | 2024-11-14 17:16 | History & Physical Report ---
Date of Service November 14, 2024 Assessment & Plan (1) Right knee DJD: 84-year-old fairly active gentleman with a year and a half history of increasing right knee pain discomfort and progressive knee arthritis. He seems to be isolated to the medial side of his knee. Is failed conservative measures. He would like to have this fixed. Plan we talked about treatment options. We can proceed with a right partial knee replacement. If we get and that is too bad we will do a full knee. Risks Mente this procedure explained and he understands. Informed consent was obtained. Will plan on aspirin for DVT prophylaxis. If we do a full knee replacement will likely use Xarelto due to his history. Plan to keep in the hospital overnight and discharge postoperative day 1. His can assist in his care. (2) Hypothyroid: (3) Hx of deep venous thrombosis: (4) Chronic idiopathic thrombocytopenia: (5) Benign prostatic hyperplasia with urinary obstruction: (6) Hypertension: History of Present Illness Chief Complaint: . Right medial knee pain and discomfort. Primary Care Provider: Keanu Paris DO . 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 Over the past year and a half he has developed increased pain discomfort in the right knee. He had multiple injections which have not provided any long- term relief. 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 He was seen by Dr. Torres at [facility] and scheduled for surgery but never got a call back. Pain has been persistent. Is getting worse. Is limiting his activities. He like to have this fixed. Allergies Allergy/AdvReac Type Severity Reaction Status Date / Time Penicillins Allergy Intermediate Hives Verified 10/16/24 10:52 ciprofloxacin Allergy Unknown "EYES Verified 10/16/24 10:52 ITCHY AND BURNING" guaifenesin AdvReac Severe UNABLE TO Verified 10/16/24 10:52 VOID pseudoephedrine AdvReac Severe UNABLE TO Verified 10/16/24 10:52 VOID Home Medications Medication Instructions Recorded Confirmed Type allopurinol 300 mg tablet 300 mg PO QAM 03/04/20 10/16/24 History levothyroxine 112 mcg tablet 112 mcg PO QAM 03/04/20 10/16/24 History (Levoxyl) pantoprazole 40 mg tablet,delayed 40 mg PO QAM 12/02/21 10/16/24 History release igmvorxy-wq-fkuil 300 mcg-K 60 1 tab PO QAM 10/16/24 10/16/24 History mcg-lycop 600 mcg-lutein 300 mcg tablet (Centrum Silver Men) Past Med/Surg History Problem List Encounter for pre-operative examination Right knee DJD Bilateral shoulder pain Hypothyroid Hx of deep venous thrombosis Remote history of, completed 6 months of Coumadin therapy Chronic idiopathic thrombocytopenia Benign prostatic hyperplasia with urinary obstruction (Acute) Hypertension (Acute) Medical History Hx of gout controlled, stable per pt Hx of gastroesophageal reflux (GERD) controlled, stable per pt Hypothyroidism History of hypertension Hx of deep venous thrombosis (~2005) Post-op bladder surgery, completed 6 months of coumadin therapy Chronic idiopathic thrombocytopenia hx BPH with urinary obstruction hx Peripheral vascular disease Hearing loss Carcinoma of bladder dx 2005, s/p TURBT Surgical History Hx of colonoscopy History of transurethral resection of bladder tumor (TURBT) 2005 Hx laparoscopic cholecystectomy w/ERCP; Laparoscopic Cholecystectomy - Paddy Mendez DO, FACS 12/03/2021 H/O cystoscopy hx had routinely due to hx bladder CA H/O sinus surgery History of nephrectomy, left age 15 History of inguinal hernia repair, bilateral Family History Unknown FHx: bladder cancer History of nephrolithiasis Cancer Social History Smoking Status: Never smoker Second Hand Exposure: No; Do You Dip or Chew Tobacco: No; Tobacco Cessation Education Requested by Patient: No Hx Alcohol Use: No Hx Substance Use: No Preferred Language: Algerian Communication Ability: Effective Visual Impairment: No 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 Physical Exam . Physical examination reveals a pleasant elderly male. Looks in pretty good health. Examination of the right knee reveals the patient to walks with slight varus alignment to his knee. Got a little bony hypertrophy medially. He is tender over the medial joint line. Small knee effusion. Range of motion 5-1 25. No instability. No pain with hip motion. Constitutional WD/WN, vitals as above Respiratory normal respiratory effort, lungs clear to auscultation Cardiovascular RRR, no murmur, no edema Gastrointestinal (Abdomen) normal bowel sounds, soft, nontender, no hepatosplenomegaly Results & Data Results & Data Laboratory Results . Diagnostic Findings . X-rays of the right knee reviewed. Shows advanced right knee medial compartment arthritis. He is got near complete loss of his medial joint space. And stress from the medial side opens up. The lateral sides well-preserved. PG Care Time/CCT Total # of Minutes Spent Total Time Spent with Patient: Total time spent is greater than 50% in coordination of care (as documented) at patient's floor/unit and/or counseling patient: Coding Level of Care Code None Diagnoses Right knee DJD M17.11 Hypothyroid E03.9 Hx of deep venous thrombosis Z86.718 Chronic idiopathic thrombocytopenia D69.3 Benign prostatic hyperplasia with urinary obstruction N40.1; N13.8 Hypertension I10
[~2024-11-17 06:43] MED LIST changes: -ALL300 PO; +ALLERGY Noted to ORDERED Medication SCH; -ATEN50TA8 PO; -LEVO100T48 PO; -POTTAB2; -RANI300T2 PO; +ROPIVACAINE 0.5% 5 MG/ML 30 ML VIAL ONE
--- OUTSIDE RECORDS SUMMARY | 2024-11-17 06:55 | External Medical Summary | Summary of Care ---
Author Name Unknown Organization [facility] Address [address] [place] [address] Phone [phone] Care Team Providers Care Ticket Marker Name Role Phone Keanu Paris DO Primary Care Provider [phone] Reason for Visit * Reason Onset Date Comments Advice 10/31/2024 Encounter Details Date Type Department Care Team (Late st Contact Info) Description 10/31/2024 Telephone Family Practice [address] [facility] [address] [place] [address] Keanu Paris DO [address] [place] [address] Advice Allergies Active Allergy Reactions Criticality Noted Date Comments Antihistamines, Chlorpheniramine-Type 02/11/2002 urinary retention Ciprofloxacin 07/05/2009 itch Guaifenesin 02/11/2002 urinary retention Influenza Vaccine 06/08/2010 Levofloxacin Itching,Rash 02/23/2011 Eye itching, rash Penicillins 12/31/1999 documented as of this encounter (statuses as of 11/07/2024) Medications SELSUN 2.5 % EX SHAMIndications: Seborrheic dermatitis, unspecified alternate with J&J baby shampoo 1 2 3 Active Fluocinonide 0.05 % ointmentIndicati ons:Dermatitis Apply topically to affected area 2 times a day. 30 g 1 6 Active Levothyroxine Sodium 112 MCG Oral Tablet (Levoxyl)Indicat ions:Hypothyroid ism TAKE ONE TABLET BY MOUTH ONCE DAILY AT LEAST 30 MINUTES PRIOR TO FIRST MEAL OF THE DAY OR OTHER MEDICATIONS 90 Tablet 1 09/15/2024 3:22 PM EST 4 06/14/20 25 Active Fluticasone Propionate 50 MCG/ACT Nasal Suspension (Flonase)Indicat ions:Seasonal allergic rhinitis due to pollen ADMINISTER 2 SPRAYS INTO EACH NOSTRIL DAILY IN THE MORNING 48 g 1 09/29/2024 9:08 AM EST 4 06/28/20 25 Active Allopurinol 300 MG Oral Tablet (Zyloprim)Indica tions:Gout, arthropathy TAKE ONE TABLET BY MOUTH EVERY DAY IN THE MORNING 100 Tablet 1 08/04/2024 5:52 PM EST 4 Active Pantoprazole Sodium 40 MG Oral Tablet Delayed Release (Protonix)Indica tions:Gastroesop hageal reflux disease without esophagitis TAKE ONE TABLET BY MOUTH IN THE MORNING 100 Tablet 1 08/04/2024 5:52 PM EST 4 Active documented as of this encounter (statuses as of 11/07/2024) Active Problems Problem Noted Date Diagnosed Date Primary osteoarthritis of right knee 02/14/2024 Immune thrombocytopenic purpura 09/20/2022 Chronic kidney disease, stage 3b 02/08/2021 Overview: Per CKD protocol Hypothyroidism due to acquired atrophy of thyroi d 11/27/2019 Gastroesophageal reflux disease without esophagi tis 11/27/2019 Basal cell carcinoma (BCC) of left cheek 018 History of nonmelanoma skin cancer 03/14/2018 Overview (03/11/2019): BCC left pre-auricular 05/14 BCC left cheek 10/26 Hypercholesteremia 02/04/2014 Primary thrombocytopenia 01/12/2011 History of bladder cancer 09/13/2006 Overview (09/24/2006): biopsy of bladder-- A -- Bladde Wall --1. Moderate cgribuc ubfkannatuib abd cibgestuib orestebt --2. Giant cell hystiocyntic inflammatin and soft tissue myxoid changes noted --3. No urothelial dysplasia or carcinoma in situ identified B -- Urethra, prostatic -- 1. Moderate chronic inflammation and cngestion -- 2. No carcinoma identified History of DVT (deep vein thrombosis) 01/26/2006 Overview (01/26/2006): R DVT post TURBT BENIGN NEOPLASM LG BOWEL 01/26/2006 Overview (01/26/2006): 02/25- diverticulosis and colon polyp- Dr. Caldwell Due for f/u 03/02 ? Fhx colon cancer Dad age 87 Gouty arthropathy 12/11/2000 Overview (09/17/2006): Allopurinol documented as of this encounter (statuses as of 11/07/2024) Resolved Problems Problem Noted Date Diagnosed Date Resolved Date Malignant neoplasm of urinary bladder 09/27/2023 10/20/2024 Benign hypertension with sta ge 3b chronic kidney disease 01/04/2021 09/27/2023 Overview: Per CKD protocol Benign hypertension with CKD (chronic kidney disease) stage III 04/10/2017 01/06/2021 Overview: Per CKD protocol History of bladder cancer 03/24/2015 HTN, goal below 140/90 03/24/201409/27 HTN, goal below 130/80 03/19/201303/24 HTN, goal below 140/90 08/14/201103/19 HTN, goal below 140/90 07/15/201007/15 HTN, goal below 130/80 07/20/200908/14 Overview (07/20/2009): Modified per HTN protocol #16. Hyperhomocysteinemia 02/04/2009 017 Kidney disease, chronic, sta ge III (GFR 30-59 ml/min) 10/08/2007 12/07/2017 Overview (10/08/2007): GFR 12/01 53.9 MALIG GREG BLADDER NEC 09/17/20062014 Overview (09/17/2006): Bladder CA T1 high grade lesion 08/31- TURBT 10/02 [facility] BCG rx x 6 Cysto 04/01, 09/02- bx [facility] Path: detention current use of ant icoagulant therapy 03/14/2006 02/23/2011 Overview (05/28/2017): ICD-10 update of inactive term Anticoagulation management encounter 03/14/2006 05/28/2020 Bladder neoplasm 01/26/2006 07/15/2010 Hypothyroidism 01/26/2006 11/27/2019 ADVANCE DIRECTIVE INFORMATION 03/20/2005 06/30/2024 Overview (03/20/2005): No, Advance Directive brochure given to patient. Dysphagia 08/11/2003 04/10/2017 Overview (11/30/2015): ICD-10 update of inactive term JOINT PAIN-SHLDER 08/11/2003 04/10/2017 Popliteal synovial cyst 08/11/200306/27 Malaise and fatigue 08/28/2002 07/15/20 10 Malignant neoplasm of skin of parts of face 10/30/2001 03/14/2018 Overview (11/18/2015): BCE L cheek ICD-10 update of inactive term HYPERTENSION NOS 07/20/2009 Overview (07/20/2009): Modified per HTN protocol #16. documented as of this encounter (statuses as of 11/07/2024) Immunizations Name Administration Dates Next Due COVID-19 mRNA, LNP-s, No Pre serve, 2-Dose Series (WeGather) 08/02/2021,12/01/2020,11/10/2020 COVID-19, LNP-s, No Preserve , Tl-sucrose, Ages 12+ (Pfizer) 01/17/2022 Pneumococcal Conjugate Vacci ne, 20-valent ([id number]) 01/18/2023 Pneumococcal Polysaccharide PPV23 (Pneumovax) 01/26/2006 TD - Tetanus/Diptheria (ADULT) 08/27/2003 TDAP (age 10 and older)(Boostrix) 09/27/2023, Zoster Vaccine Recombinant (Shingrix) 03/14/2022 ,07/06/2021 documented as of this encounter Social History Tobacco Use Types Packs/Day Years Used Date Smoking Tobacco: Never Passive Smoke Exposure: Never Smokeless Tobacco: Never Alcohol Use Standard Drinks/Week Comments No 0 (1 standard drink = 0.6 oz pur e alcohol) PHQ-2 Answer Date Recorded PHQ Adult Total Score 0 10/22/2024 Hunger Vital Sign Answer Date Recorded Within the past 12 months, y ou worried that your food would run out before you got the money to buy more. Never true 10/22/19 25 Within the past 12 months, t he food you bought just didn't last and you didn't have money to get more. Never true 10/22/2024 Childcare Answer Date Recorded Do you feel overwhelmed with taking care of a child, family member or friend? No 10/22/2024 Does your family need help f inding childcare? (Household - for ages 0-17 years) Not on file 10/22/2024 Clothing Answer Date Recorded Have you been unable to get clothing when it was really needed? No 10/22/2024 Is your family able to get c lothes or diapers when needed? (Household - for ages 0-17 years) Not on file 10/22/2024 Personal Safety Answer Date Recorded Do you feel unsafe or have concerns for your saf ety? No 10/22/2024 Do you have concerns for you r family's safety? (Household - for ages 0-17 years) Not on file 10/22/2024 Utilities Answer Date Recorded Do you have trouble paying y our heating, water, or electric bill? No 10/22/2024 Is your family able to pay t he heat, water, or electric bill? (Household - for ages 0-17 years) Not on file 10/22/2024 Does your family have access to good internet? (Household - for ages 0-17 years) Not on file 10/22/2024 Employment Status Answer Date Recorded Are you unemployed or without regular income? No 10/22/2024 Does the household have a re gular source of income? (Household - for ages 0-17 years) Not on file 10/22/2024 Social Connections Answer Date Recorded How often do you feel lonely or isolated from th ose around you? Never 10/22/2024 Financial Resource Strain Answer Date R ecorded Do you have any trouble payi ng for your medications, or do you think you might in the future? No 10/22/2024 Does your family have troubl e paying for medicine? (Household - for ages 0-17 years) Not on file 10/22/2024 Transportation Needs Answer Date Record ed Do you have trouble getting a ride to medical visits or work? (Adult - for ages 18 years and over) Not on file 10/22/2024 Does your family have a hard time getting a ride to doctors visits? (Household - for ages 0-17 years) Not on file 10/22/2024 Has lack of transportation k ept you from medical appointments, meetings, work, or from getting things needed for daily living? Check all that apply. No 10/22/2024 Do you (or your family) have trouble finding or paying for a ride (transportation)? (Household - for ages 0-17 years) Not on file 10/22/2024 Housing Stability Answer Date Recorded Do you currently live in a s helter or have no steady place to sleep at night? No 10/22/2024 Do you think you are at risk of becoming homeless? (Adult - for ages 18 years and over) Not on file 10/22/2024 Does your family worry about paying for your home or becoming homeless? (Household - for ages 0-17 years) Not on file 0 10/22/2024 Are you homeless or worried that you might be in the future? No 10/22/2024 Are you (or your family) mariia eless or worried that you might be in the future? (Household - for ages 0-17 years) Not on file Food Insecurity Answer Date Recorded Do you need food for this week? No 09/27/2023 Are you able to get enough f ood for your family? (Household - for ages 0-17 years) Not on file 09/27/2023 Does your family need food t his week? (Household - for ages 0-17 years) Not on file 09/27/2023 Do you always have enough fo od for your family? (Household - for ages 0-17 years) Not on file 09/27/2023 Food Insecurity Answer Date Recorded Within the past 12 months, y ou worried that your food would run out before you got the money to buy more. Never true 10/22/19 25 Within the past 12 months, t he food you bought just didn't last and you didn't have money to get more. Never true 10/22/2024 Do you need food for this week? 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 Mccoy's office fax# [phone] with fax confirmation received. * Telephone Encounter - Keanu Paris DO - 11/04/2024 12:50 PM EDT Send prop- to [facility] Patient is OK for surgery * Telephone Encounter - Cheri Cortez LPN - 10/31/2024 1:37 PM EST Please advise. * Telephone Encounter - Lydia Tsang OSA - 10/31/2024 10:14 AM EST Preeti from [facility] Anesthesia called asking for final pre-op clearance for patient. Surgery on 11/17 Dr. Norm Mccoy Patient saw Dr. Paris on 10/22 Please put the clearance in Epic. Thank You. documented in this encounter Plan of Treatment Upcoming Encounters Date Type Department Care Team (Late st Contact Info) Description 02/12/2025 10:40 AM EDT Office Visit Family Practice [address] [place], [place] [address] [place] [address] Keanu Paris, DO [address] [facility] [place] [address] 02/18/2025 10:00 AM EDT Office Visit Orthopaedics [facility] [address] [place] [id number] Bo Shelton, DO [address] [place] [phone] 05/19/2025 8:15 AM EDT Office Visit Dermatology [facility] [address] [facility] [place] [address] Naif Toscano MD [address] [facility] [place] [address] 06/02/2025 1:40 PM EDT Office Visit Nephrology, [facility] [address] [facility] [place] [address] Adebayo Hurley MD [address] [facility] [place] [address] Health Maintenance Due Date Last Done Comments Adult Wellness Visit 2006 COVID-19 Vaccine ( season) 2024 01/17/2022, 08/02/2021, 12/01/2020, Additional history exists Albumin/Creatinine Ratio 02/13/2025 024, 01/18/2023, 09/16/2021, Additional history exists CKD PHOS USE SMARTSET 86913 02/13/202501/26, 08/24/2022, 12/01/2021, Additional history exists TSH 02/13/2025 02/14/2024, 12/26, 12/01/2021, Additional history exists Colonoscopy 04/04/2025 04/04/2022, 08/04/2022, 11/06/2017, Additional history exists GFR 04/29/2025 10/27/2024, 01/26, 05/24/2023, Additional history exists Depression Screening 10/22/2025 10/22/2024 CKD HGB USE SMARTSET 85414 10/27/202510/27, 02/14/2024, 02/14/2024, Additional history exists DTap/Tdap Vaccines (3 - Td or Tdap) 09/27/2033 09/27/2023, 09/19/2013, 08/27/2003, Additional history exists Zoster Vaccines Completed 03/14/2022, 07/06/2021 Pneumococcal Vaccine: 50+ Years Completed 01/18/2023, 01/26/2006 HPV (Gardasil) Vaccine Aged Out No lo nger eligible based on patient's age to complete this topic Hepatitis B Vaccine Aged Out No longe r eligible based on patient's age to complete this topic MENINGOCOCCAL (MENACTRA/MENVEO) Aged Out No longer eligible based on patient's age to complete this topic Meningitis B Vaccine (Bexsero/Trumemba) Aged Out No longer eligible based on patient's age to complete this topic documented as of this encounter Medical Devices Not on filedocumented as of this encounter Care Teams Ticket Marker Relationship Specialty Start Date End Date Keanu Paris DO [address] [facility] [place] [address] PCP - General Internal Medicine 02/07/24 documented as of this encounter
--- OUTSIDE RECORDS SUMMARY | 2024-11-17 06:55 | External Medical Summary | Summary of Care ---
Author Name Unknown Organization [facility] Address [address] [facility] [place] [address] Phone [phone] Care Team Providers Care Mobile Sales Assistant Name Role Phone Keanu Paris DO Primary Care Provider [phone] Reason for Visit * Reason Comments Follow Up Right shoulder Encounter Details Date Type Department Care Team (Latest Contact Info) Description 10/29/2024 10:00 AM EST Office Visit Orthopaedics [facility] [address] [place] [phone] Bo Shelton DO [address] [place] [phone] Primary osteoarthritis of right shoulder*; Primary osteoarthritis of left shoulder Allergies Active Allergy Reactions Criticality Noted Date Comments Antihistamines, Chlorpheniramine-Type 02/11/2002 urinary retention Ciprofloxacin 07/05/2009 itch Guaifenesin 02/11/2002 urinary retention Influenza Vaccine 06/08/2010 Levofloxacin Itching,Rash 02/23/2011 Eye itching, rash Penicillins 12/31/1999 documented as of this encounter (statuses as of 10/29/2024) Medications SELSUN 2.5 % EX SHAMIndications: Seborrheic dermatitis, unspecified alternate with J&J baby shampoo 1 2 3 Active Fluocinonide 0.05 % ointmentIndicati ons:Dermatitis Apply topically to affected area 2 times a day. 30 g 1 02/08/201 6 Active Levothyroxine Sodium 112 MCG Oral [...] 1 08/04/2024 5:52 PM EST 4 Active Hospital, Clinic, or Other Facility Administered Medication Ordered Dose Route Frequency Start Date End Date Status lidocaine 1% 1 mL - triamcinolone acetonide 40 mg/mL 1 mL inj 2 mLIndications:Primary osteoarthritis of left shoulder 2 mL IJ ONCE 10/29/2024 10/29/2024 Ended lidocaine 1% 1 mL - triamcinolone acetonide 40 mg/mL 1 mL inj 2 mLIndications:Primary osteoarthritis of right shoulder 2 mL IJ ONCE 10/29/2024 10/29/2024 Ended documented as of this encounter (statuses as of 10/29/2024) Active Problems Problem Noted Date Diagnosed Date [...] as of this encounter (statuses as of 10/29/2024) Resolved Problems Problem Noted Date Diagnosed Date [...] T1 high grade lesion 08/31- TURBT 10/02 [facility] BCG rx x 6 Cysto 04/01, 09/02- bx [facility] 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 current use of ant icoagulant therapy 03/14/2006 [...] as of this encounter (statuses as of 10/29/2024) Immunizations Name Administration Dates Next Due COVID-19 mRNA, LNP-s, No Pre serve, 2-Dose Series (Pfizer) 08/02/2021,12/01/2020,11/10/2020 COVID-19, LNP-s, No Preserve , Tl-sucrose, Ages 12+ (Pfizer) 01/17/2022 Pneumococcal Conjugate Vacci ne, 20-valent ([id number]) 01/18/2023 Pneumococcal Polysaccharide PPV23 (Pneumovax) 01/26/2006 TD - Tetanus/Diptheria (ADULT) 08/27/2003,1999 TDAP (age 10 and older)(Boostrix) 09/27/2023, Zoster [...] 10/22/2024 Does the household have a re lar source of income? (Household - for ages [...] on file documented as of this encounter Progress Notes * Bo Shelton DO - 10/29/2024 10:00 AM EST Soy Estevez [id number] Soy Estevez is a 83 year old male who presents for follow up to [facility] for right shoulder injury/pain left shoulder pain. Initial consult requested by Keanu Paris DO. Soy Estevez is here with his/her . 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 He reports his range of motion and strength are somewhat diminished but pain is his primary concern. Patient last seen by me on 06/30/2024 and had a glenohumeral joint injection. Additionally he had cyst aspirated by me on 08/12/2024 TODAY: He would like repeat injection in the right side. He also we would like on the left side. Noinjury. But he states that his left feels exactly the same as the right. Previous Surgery/Subluxation/Dislocation: No REVIEW OF SYSTEMS Constitional: No change in weight, No weakness, No fatigue, and No fevers, sweats, or chills Past Medical History: Diagnosis Date Benign neoplasm of colon 03/25/2007 adenomatous trissue-repeat in 3 years BPH without obstruction/lower urinary tract symptoms HTN, goal below 140/90 08/14/2011 Malignant neoplasm of other specified sites of bladder 09/13/2006 biiopsy of bladder Malignant neoplasm of urinary bladder (HCC) 09/27/2023 Phlebitis and thrombophlebitis of other deep vessels of lower extremities 10/25/2005 R DVT- post TURBT Uric acid urolithiasis Patient Active Problem List Diagnosis Gouty arthropathy History of DVT (deep vein thrombosis) BENIGN NEOPLASM LG BOWEL History of bladder cancer Primary thrombocytopenia (HCC) Hypercholesteremia History of nonmelanoma skin cancer Basal cell carcinoma (BCC) of left cheek Hypothyroidism due to acquired atrophy of thyroid Gastroesophageal reflux disease without esophagitis Chronic kidney disease, stage 3b (HCC) Immune thrombocytopenic purpura (HCC) Primary osteoarthritis of right knee Current Outpatient Medications Medication Sig Dispense Refill SELSUN 2.5 % EX SHAM alternate with J&J baby shampoo 1 2 Fluocinonide 0.05 % ointment Apply topically to affected area 2 times a day. 30 g 1 Levothyroxine Sodium 112 MCG Oral Tablet (Levoxyl) TAKE ONE TABLET BY MOUTH ONCE DAILY AT LEAST 30 MINUTES PRIOR TO FIRST MEAL OF THE DAY OR OTHER MEDICATIONS 90 Tablet 1 Fluticasone Propionate 50 MCG/ACT Nasal Suspension (Flonase) ADMINISTER 2 SPRAYS INTO EACH NOSTRIL DAILY IN THE MORNING 48 g 1 Allopurinol 300 MG Oral Tablet (Zyloprim) TAKE ONE TABLET BY MOUTH EVERY DAY IN THE MORNING 100 Tablet 1 Pantoprazole Sodium 40 MG Oral Tablet Delayed Release (Protonix) TAKE ONE TABLET BY MOUTH IN THE MORNING 100 Tablet 1 No current facility-administered medications for this visit. No results found for: "HEMOGLOBIN A1C" PHYSICAL EXAM General: in no acute distress, fit-appearing for his age Mood and Affect: normal SHOULDER EXAM - Bilateral Shoulder Glenohumeral ROM ABD (100): Bilateral and equal ER (90): Bilateral and equal IR (60): Right - 40/ T8 degrees Left - 50 T6 degrees FF (120): Bilateral and equal, we will have pain greater than 100 bilateral Palpation: tender to palpation at anterior shoulder right > left Strength and Cuff Tests Supraspinatous (Empty Can): Right - 4/5 | Left - 4.5/5 Infraspinatous/Teres Minor (resisted external rotation): Right - 4/5 | Left - 4.55/5 Subscapularis (resisted internal rotation): Right - 4/5 | Left - 5/5 Drop Arm: negative Bilateral Impingment Tests Nallely's Test: positive bilateral Acromioclavicular Joint Crossed Arm: negative bilateral Biceps Speed (biceps): negative bilateral Labrum Test Testing not indicated Cervical Spine: Patient denies neck symptoms and/or numbness/tingling in upper extremities Radiology - repeat not indicated on the right.. Through shared decision-making we elected to not dox-rays on the left. However if these injections do not work we will order imaging. He states regardless if he has a rotator cuff tear he would not want surgery. ASSESSMENT AND PLAN We will do bilateral glenohumeral joint injections. He will notify if these do not work. Otherwise follow up 3 months. Primary osteoarthritis of right shoulder (Primary) - POINT OF CARE US MAJOR JOINT INJECTION, ORTHO - lidocaine 1% 1 mL - triamcinolone acetonide 40 mg/mL 1 mL inj 2 mL Primary osteoarthritis of left shoulder - lidocaine 1% 1 mL - triamcinolone acetonide 40 mg/mL 1 mL inj 2 mL - POINT OF CARE US MAJOR JOINT INJECTION, ORTHO Bo Shelton, DO Primary Care Sports Medicine Orthopaedics [address] [place] [address] This chart was completed in part utilizing [employer] Speech Voice Recognition Software. Grammatical errors, random word insertions, pronoun errors, and incomplete sentences are an occasional consequence of this system due to software limitations, ambient noise, and hardware issues. Any formal questions or concerns about the content, text, or information contained within the body of this dictation should be directly addressed to the provider for clarification. PROCEDURE NOTE: SHOULDER GLENOHUMERAL JOINT INJECTION Laterality: Bilateral Time out: Prior to injection, a time out was called to confirm the administration of appropriate medicine, patient name, procedure and confirm to the best of our ability and knowledge the presence of any necessary risks and benefits. Patient verbalized understanding. Ultrasound required due to high risk for complications without ultrasound guidance (risk for neurovascular damage) Ultrasound utilized to guide injection. During the procedure, the needle was visualized in plane and was advanced with continuous ultrasound guidance to the appropriate anatomical landmark as described in the procedure. Sterile technique applied using gloves, chlorhexadine, and alcohol swabs. Ethyl chloride spray for local anesthetic. Glenohumeral joint injected using 3.5 inch, 22 gauge needle. Injected with 1 mL Lidocaine 1% - 1 mLTriamcinolone Acetonide 40 mg/mL >> inject 2 mL. Patient tolerated procedure with no significant bleeding or adverse reaction. Patient instructed to call or return to clinic for fever, warmth, unusual redness at injection sitefor potential infection. Patient also advised regarding post-procedural pain. Bo Shelton DO Sports Medicine Primary Care Orthopaedics [facility] [address] [facility] [address] documented in this encounter Nursing Notes * Nuria Batista MED ASSIST - 10/29/2024 10:19 AM EST Repeat right GH inj. documented in this encounter Plan of Treatment Upcoming Encounters Date Type Department Care Team (Late st Contact Info) Description 02/12/2025 10:40 AM EDT Office Visit Family [facility] [address] [facility] [place] [address] [place] [address] Keanu Paris DO [address] [place] [address] 02/18/2025 10:00 AM EDT Office Visit Orthopaedics [facility] [address] [place] [phone] Bo Shelton DO [address] [place] [phone] 05/19/2025 8:15 AM EDT Office Visit Dermatology [facility] [address] [facility] [place] [address] Naif Toscano MD [address] [facility] [place] [address] 06/02/2025 1:40 PM EDT Office Visit Nephrology, [facility] [address] [facility] [place] [address] Adebayo Hurley MD [address] [facility] [place] [address] Health Maintenance Due Date Last Done Comments Adult Wellness Visit 2006 COVID-19 Vaccine ( season) 2024 01/17/2022, 08/02/2021, 12/01/2020, Additional history exists GFR 08/15/2024 02/14/2024, 04/28, 01/18/2023, Additional history exists Albumin/Creatinine Ratio 02/13/2025 024, 01/18/2023, 09/16/2021, Additional history exists CKD HGB USE SMARTSET 84280 02/13/202502/13, 02/14/2024, 01/18/2023, Additional history exists CKD PHOS USE SMARTSET 34230 02/13/202501/26, 08/24/2022, 12/01/2021, Additional history exists TSH 02/13/2025 02/14/2024, 12/26, 12/01/2021, Additional history exists Colonoscopy 04/04/2025 04/04/2022, 08/0 04/2022, 11/06/2017, Additional history exists Depression Screening 10/22/2025 10/22/2024 DTap/Tdap Vaccines (3 - Td or Tdap) [...] Not on filedocumented as of this encounter Procedures Procedure Name Priority Date/Time Associated Diagnosis Comments POINT OF CARE US MAJOR JOINT INJECTION, ORTHO Routine 10/29/2024 10:06 AM EST 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 documented in this encounter Results * POINT OF CARE US MAJOR JOINT INJECTION, ORTHO (10/29/2024 10:06 AM EST) Anatomical Region Laterality Modality Musculoskeletal Radiographic Sherlyn ging 10/29/2024 10:0 6 AM EST Narrative 10/29/2024 10:41 AM EST Patient Name: SOY ESTEVEZ : 1940 (84y) Male Performing Provider: Bo Shelton (digitally signed Oct 29, 2024 10:41 EST) Attending: Bo Shelton (digitally signed Oct 29, 2024 10:41 EST) [Impression] : PROCEDURE NOTE: SHOULDER GLENOHUMERAL JOINT INJECTION Laterality: Bilateral Time out: Prior to injection, a time out was called to confirm the administration of appropriate medicine, patient name, procedure and confirm to the best of our ability and knowledge the presence of any necessary risks and benefits. Patient verbalized understanding. Ultrasound required due to high risk for complications without ultrasound guidance (risk for neurovascular damage) Ultrasound utilized to guide injection. During the procedure, the needle was visualized in plane and was advanced with continuous ultrasound guidance to the appropriate anatomical landmark as described in the procedure. Sterile technique applied using gloves, chlorhexadine, and alcohol swabs. Ethyl chloride spray for local anesthetic. Glenohumeral joint injected using 3.5 inch, 22 gauge needle. Injected with 1 mL Lidocaine 1% - 1 mL Triamcinolone Acetonide 40 mg/mL >> inject 2 mL. Patient tolerated procedure with no significant bleeding or adverse reaction. Patient instructed to call or return to clinic for fever, warmth, unusual redness at injection site for potential infection. Patient also advised regarding post-procedural pain. Bo Shelton DO Sports Medicine Primary Care Orthopaedics [address] [address] Procedure Note Bo Shelton DO - 10/29/2024 Patient Name: SOY ESTEVEZ : 1940 (84y) Male Performing Provider: Bo Shelton (digitally signed Oct 29, 2024 10:41EST) Attending: Bo Shelton (digitally signed Oct 29, 2024 10:41 EST) [Impression] : PROCEDURE NOTE: SHOULDER GLENOHUMERAL JOINT INJECTION Laterality: Bilateral Time out: Prior to injection, a time out was called to confirm the administration ofappropriate medicine, patient name, procedure and confirm to the best ofour ability and knowledge the presence of any necessary risks andbenefits. Patient verbalized understanding. Ultrasound required due to high risk for complications without ultrasoundguidance (risk for neurovascular damage) Ultrasound utilized to guide injection. During the procedure, the needle was visualized in plane and was advancedwith continuous ultrasound guidance to the appropriate anatomical landmarkas described in the procedure. Sterile technique applied using gloves, chlorhexadine, and alcoholswabs. Ethyl chloride spray for local anesthetic. Glenohumeral joint injected using 3.5 inch, 22 gauge needle. Injected with1 mL Lidocaine 1% - 1 mL Triamcinolone Acetonide 40 mg/mL >> inject 2mL. Patient tolerated procedure with no significant bleeding or adversereaction. Patient instructed to call or return to clinic for fever, warmth, unusualredness at injection site for potential infection. Patient also advisedregarding post- procedural pain. Bo Shelton DO Sports Medicine Primary Care Orthopaedics [facility] [address] [facility] [address] us Bo Shelton DO RAD ULTRASOUND Final Result documented in this encounter Visit Diagnoses Diagnosis Primary osteoarthritis of right shoulder- Primary Primary localized osteoarthrosis, shoulder region Primary osteoarthritis of left shoulder Primary localized osteoarthrosis, shoulder region documented in this encounter Administered Medications Inactive Administered Medications - up to 3 most recent administrations Medication Order MAR Action Action Date Dose Rate Site lidocaine 1% 1 mL - triamcinolone acetonide 40 mg/mL 1 mL inj 2 mL 2 mL, Injection, ONCE, On Sun10/29/24 at 1115, For 1 dose, Lidocaine 1% 1mL Triamcinolone Acetonide 40 mg/mL 1 mL (Final concentration = 20 mg/mL) REFRIGERATE and SHAKE WELLIndications:Primary osteoarthritis of left shoulder Given 10/29/2024 10:45 AM EST 2 mL Shoulder Right lidocaine 1% 1 mL - triamcinolone acetonide 40 mg/mL 1 mL inj 2 mL 2 mL, Injection, ONCE, On Sun10/29/24 at 1115, For 1 dose, Lidocaine 1% 1mL Triamcinolone Acetonide 40 mg/mL 1 mL (Final concentration = 20 mg/mL) REFRIGERATE and SHAKE WELLIndications:Primary osteoarthritis of right shoulder Given 10/29/2024 10:45 AM EST 2 mL Shoulder Left documented in this encounter Care Teams Mobile Sales Assistant Relationship Specialty Start Date End Date Keanu Paris DO [address] [place] [facility] [place] [address] PCP - General Internal Medicine 02/07/24 documented as of this encounter
--- OUTSIDE RECORDS SUMMARY | 2024-11-17 06:55 | External Medical Summary | Summary of Care ---
Author Name Unknown Organization [facility] [address] [facility] [address] Phone [phone] Care Team Providers Care Orthotics Prosthetics Assistant Name Role Phone Keanu Paris DO Primary Care Provider [phone] Encounter Details Date Type Department Care Team (Late st Contact Info) Description 10/27/2024 Result Scan Unspecified Department <No scans attached> Allergies Active Allergy Reactions Criticality Noted Date Comments Antihistamines, Chlorpheniramine-Type 02/11/2002 urinary retention Ciprofloxacin 07/05/2009 itch Guaifenesin 02/11/2002 urinary retention Influenza Vaccine 06/08/2010 Levofloxacin Itching,Rash 02/23/2011 Eye itching, rash Penicillins 12/31/1999 documented as of this encounter (statuses as of 10/30/2024) Medications SELSUN 2.5 % EX SHAMIndications: Seborrheic [...] 1 09/29/2024 9:08 AM EST 4 06/28/20 Active Allopurinol 300 MG Oral Tablet (Zyloprim)Indica [...] as of this encounter (statuses as of 10/30/2024) Active Problems Problem Noted Date Diagnosed Date [...] as of this encounter (statuses as of 10/30/2024) Resolved Problems Problem Noted Date Diagnosed Date [...] T1 high grade lesion 08/31- TURBT 10/02 [facility] BCG rx x 6 Cysto 04/01, 09/02- bx [facility] Path: [facility] current use of ant icoagulant therapy 03/14/2006 [...] as of this encounter (statuses as of 10/30/2024) Immunizations Name Administration Dates Next Due COVID-19 mRNA, LNP-s, No Pre serve, 2-Dose Series (AppDirect) 08/02/2021,12/01/2020,11/10/2020 COVID-19, LNP-s, No Preserve , Tl-sucrose, Ages 12+ (Pfizer) 01/17/2022 Pneumococcal Conjugate Vacci ne, 20-valent ([id number]) 01/18/2023 Pneumococcal Polysaccharide PPV23 (Pneumovax) 01/26/2006 TD [...] the money to buy more. Never true 02/26/20 25 Within the past 12 months, t [...] on file documented as of this encounter Plan of Treatment Upcoming Encounters Date Type Department Care Team (Late st Contact Info) Description 02/12/2025 10:40 AM EDT Office Visit Family Practice [address] [place] [address] [address] [facility] [place] [place] [address] Keanu Paris, DO [address] [place] [address] 02/18/2025 10:00 AM EDT Office Visit Orthopaedics [facility] [address] [place] [phone] Bo Shelton, DO [address] [place] [phone] 05/19/2025 8:15 AM EDT Office Visit Dermatology [facility] [address] [place] [place] [address] Naif Toscano MD [address] [facility] [place] [address] 06/02/2025 1:40 PM EDT Office Visit Nephrology, [facility] [place] [address] [place] [address] Adebayo Hurley MD [address] [facility] [place] [address] Health Maintenance Due Date Last Done Comments Adult Wellness Visit 2006 COVID-19 Vaccine ( season) 2024 01/17/2022, 08/02/2021, 12/01/2020, Additional history exists Albumin/Creatinine Ratio 02/13/2025 024, 01/18/2023, 09/16/2021, Additional history exists CKD PHOS USE SMARTSET 81196 02/13/202501/26, 08/24/2022, 12/01/2021, Additional history exists TSH 02/13/2025 02/14/2024, 12/26, 12/01/2021, Additional history exists Colonoscopy 04/04/2025 04/04/2022, 04/2022, 11/06/2017, Additional history exists GFR 04/29/2025 10/27/2024, 01/26, 05/24/2023, Additional history exists Depression Screening 10/22/2025 10/22/2024 CKD HGB USE SMARTSET 81265 10/27/202510/27, 02/14/2024, 02/14/2024, Additional history exists DTap/Tdap [...] Procedure Name Priority Date/Time Associated Diagnosis Comments EKG SCANNED RESULT 10/27/2024 documented in this encounter Results * EKG SCANNED RESULT (10/27/2024) 10/27/2024 us No Physician Data Unknown EKG Final Result documented in this encounter Care Teams Orthotics Prosthetics Assistant Relationship Specialty Start Date End Date Keanu Paris DO [address] [place] [address] PCP - General Internal Medicine 02/07/24 documented as of this encounter
--- OUTSIDE RECORDS SUMMARY | 2024-11-17 06:55 | External Medical Summary | Summary of Care ---
Author Name Unknown Organization [facility] Address [address] [place] [address] Phone [phone] Care Team Providers Care [employer] Supervisor Name Role Phone Keanu Paris DO Primary Care Provider [phone] Encounter Details Date Type Department Care Team (Late st Contact Info) Description 10/30/2024 Orders Only Family Practice [address] [facility] [address] [place] [address] Keanu Paris DO [address] [place] [address] Allergies Active Allergy Reactions Criticality Noted Date [...] T1 high grade lesion 08/31- TURBT 10/02 [facility] BCG rx x 6 Cysto 04/01, 09/02- bx [facility] 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 Never true 10/22/19 Within the past 12 months, t he [...] 10:40 AM EDT Office Visit Family Practice [address] [place] [address] 293 [place] [address] Keanu Paris, DO [address] [place] [address] 02/18/2025 10:00 AM EDT Office Visit Orthopaedics [facility] [address] [place] [phone] Bo Shelton, DO [address] [place] [address] 05/19/2025 8:15 AM EDT Office Visit Dermatology [facility] [address] [place] [address] Naif Toscano MD [address] [place] [address] 06/02/2025 1:40 PM EDT Office Visit Nephrology, [facility] [address] [place] [address] Adebayo Hurley MD 200 [place] [address] Health Maintenance Due Date Last Done Comments Adult Wellness Visit 2006 COVID-19 Vaccine ( season) 2024 01/17/2022, 08/02/2021, 12/01/2020, Additional history exists Albumin/Creatinine Ratio 02/13/2025 024, 01/18/2023, 09/16/2021, Additional history exists CKD PHOS USE SMARTSET 89557 02/13/202501/26, 08/24/2022, 12/01/2021, Additional history exists TSH 02/13/2025 02/14/2024, 12/26, 12/01/2021, Additional history exists Colonoscopy 04/04/2025 04/04/2022, 08/0 04/2022, 11/06/2017, Additional history exists GFR 04/29/2025 10/27/2024, 01/26, 05/24/2023, Additional history exists Depression Screening 10/22/2025 10/22/2024 CKD HGB USE SMARTSET 65628 10/27/202510/27, 02/14/2024, 02/14/2024, Additional history exists DTap/Tdap [...] Procedure Name Priority Date/Time Associated Diagnosis Comments XR CHEST 2 VIEWS Routine 10/27/2024 CHEMISTRY-OUTSIDE Routine 10/27/2024 documented in this encounter Results * (ABNORMAL) CHEMISTRY-OUTSIDE (10/27/2024) Not all results display below - see scan for full detail OUTSIDE LAB (SEE SCANNED REPORT) Comment:"SCAN INCLUDES PRE-A DMISSION LABS [facility]"- CBC/DIFF, PLT, PT/INR, PTT, PTTR, BMP CREATININE 1.47(A) 0.6 - 1.4 MG/DL OUTSIDE LAB (SEE SCANNED REPORT) EGFR 46.74 NO RANGE OUTSIDE LA B (SEE SCANNED REPORT) POTASSIUM 4.3 3.5 - 5.1 MMOL/L OUTSIDE LAB (SEE SCANNED REPORT) GLUCOSE 98 70 - 99 MG/DL OUTSIDE LAB (SEE SCANNED REPORT) HOURS FASTING OUTSID E LAB (SEE SCANNED REPORT) TRIGLYCERIDES-OUT SIDE LAB OUTSIDE LAB (SEE SCANNED REPORT) CHOLESTEROL-OUTSI DE LAB OUTSIDE LAB (SEE SCANNED REPORT) HDL-OUTSIDE LAB OUTS GURPREET LAB (SEE SCANNED REPORT) CHOL/HDL RATIO-OUTSIDE LAB OUTSIDE LA B (SEE SCANNED REPORT) LDL (CALCULATED)-OUTS GURPREET LAB OUTSIDE LAB (SEE SCANNED REPORT) LDL (DIRECT MEASURE)-OUTSIDE LAB OUTSIDE LAB (SEE SCANNED REPORT) HEMOGLOBIN, [id number] LAB OUTSIDE LAB (SEE SCANNED REPORT) PHOSPHORUS-OUTSID E LAB OUTSIDE LAB (SEE SCANNED REPORT) PTH-OUTSIDE LAB OUTS GURPREET LAB (SEE SCANNED REPORT) MICROALBUMIN RATIO-OUTSIDE LAB OUTSIDE LA B (SEE SCANNED REPORT) PROTEIN, UA-OUTSIDE LAB OUTSIDE LAB (SEE SCANNED REPORT) HGB 14.6 14.0 - 18.0 G/DL OUTSIDE LAB (SEE SCANNED REPORT) 10/27/2024 us Norm Mccoy MD LABORATORY Final Re sult OUTSIDE LAB (SEE SCANNED REPORT) * XR CHEST 2 VIEWS (10/27/2024) Anatomical Region Laterality Modality Chest Other 10/27/2024 us Norm Mccoy MD RADIOLOGY (RAD GENERAL) Final Result documented in this encounter Care Teams Aluminum Fabrication Supervisor Relationship Specialty Start Date End Date Keanu Paris DO [address] [facility] [place] [address] PCP - General Internal Medicine 02/07/24 documented as of this encounter
--- OUTSIDE RECORDS SUMMARY | 2024-11-17 06:55 | External Medical Summary | Summary of Care ---
Author Name Unknown Organization [facility] Address [address] [place] [address] Phone [phone] Care Team Providers Care Parts Counter Sales Person Name Role Phone Keanu Paris DO Primary Care Provider [phone] Reason for Visit * Reason Comments Follow Up Encounter Details Date Type Department Care Team (Latest Contact Info) Description 10/22/2024 3:00 PM EST Office Visit Family Practice [address] [place] [address] [place] [phone] Keanu Paris DO [address] [place] [address] Preoperative general physical examination*; Primary osteoarthritis of right knee; Chronic kidney disease, stage 3b (HCC); Hypothyroidism due to acquired atrophy of thyroid; Hypercholesteremia; Immune thrombocytopenic purpura (HCC); Gouty arthropathy; History of bladder cancer; Gastroesophageal reflux disease without esophagitis Allergies Active Allergy Reactions Criticality Noted Date Comments Antihistamines, Chlorpheniramine-Type 02/11/2002 urinary retention Ciprofloxacin 07/05/2009 itch Guaifenesin 02/11/2002 urinary retention Influenza Vaccine 06/08/2010 Levofloxacin Itching,Rash 02/23/2011 Eye itching, rash Penicillins 12/31/1999 documented as of this encounter (statuses as of 11/04/2024) Medications SELSUN 2.5 % EX SHAMIndications: Seborrheic dermatitis, unspecified alternate with J&J baby shampoo 1 2 09/09/200 3 Active Fluocinonide 0.05 % ointmentIndicati ons:Dermatitis [...] as of this encounter (statuses as of 11/04/2024) Active Problems Problem Noted Date Diagnosed Date [...] as of this encounter (statuses as of 11/04/2024) Resolved Problems Problem Noted Date Diagnosed Date [...] T1 high grade lesion 08/31- TURBT 10/02 [facility] BCG rx x 6 Cysto 04/01, 09/02- bx [facility] Path: long-term current use of ant icoagulant therapy 03/14/2006 [...] as of this encounter (statuses as of 11/04/2024) Immunizations Name Administration Dates Next Due COVID-19 mRNA, LNP-s, No Pre serve, 2-Dose Series (Crowdnetic) 08/02/2021,12/01/2020,11/10/2020 COVID-19, LNP-s, No Preserve , Tl-sucrose, Ages 12+ (Pfizer) 01/17/2022 Pneumococcal Conjugate Vacci ne, 20-valent ([id number]) 01/18/2023 Pneumococcal Polysaccharide PPV23 (Pneumovax) 01/26/2006 TD - Tetanus/Diptheria (ADULT) 08/27/2003,1999 TDAP (age 10 and older)(Boostrix) 09/27/2023, Zoster Vaccine Recombinant (Shingrix) 03/14/2022 ,07/06/2021 documented as of this encounter Social History Tobacco Use Types Packs/Day Years Used Date Smoking Tobacco: Never Passive Smoke Exposure: Never Smokeless Tobacco: Never Tobacco Cessation:Counseling Given: Yes Alcohol Use Standard Drinks/Week Comments No 0 [...] on file documented as of this encounter Last Filed Vital Signs Vital Sign Reading Time Taken Comments Blood Pressure 130/72 10/22/2024 2:24 PM EST Pulse 66 10/22/2024 2:24 PM EST Temperature 36.5 C (97.7 F) 10/22/2024 2:24 PM ES T Respiratory Rate 16 10/22/2024 2:24 PM EST Oxygen Saturation 96% 10/22/2024 2:24 PM EST Inhaled Oxygen Concentration - - Weight 81.9 kg (180 lb 9.6 oz) 10/22/2024 2:24 P M EST Height 172.7 cm (5' 8") 10/22/2024 2:24 PM EST Body Mass Index 27.46 10/22/2024 2:24 PM EST documented in this encounter Progress Notes * Keanu Paris, - 11/04/2024 12:35 PM EDT Labs and studies done at [facility] on 10/27/2024. Reports reviewed ECG: Sinus rhythm with sinus arrhythmia first degree AVB, possible anterior infarct age undetermined. Darrell fagan compared to Dec-2021 CXR: No acute findings: CBC: Normal with exception of low platelet count due to ITP PT and INR: Normal BMP: Chronic stable CKD , otherwise normal Reviewed with Hematology - Patient may proceed with surgery with platelet count of 98,000 No additional testing necessary prior to knee replacement. Patient may proceed with surgery. * Keanu Paris DO - 10/22/2024 3:36 PM EST Images from the original note were not included. SUBJECTIVE: Soy Jarvis is a 84 year old male. Chief Complaint Patient presents with Follow Up HPI: Patient is an 84 year old male with a history of Hypothyroidism, Bladder Cancer, Gout, ITP, CKD Stage III, and OA of the right knee that is seen for follow up. He is feeling well. No chest pain or shortness of breath are present. Weight is stable and appetite is good. Right knee pain continues to worsen and he is scheduled for right knee replacement. Patient Active Problem List Diagnosis Gouty arthropathy [...] Current Outpatient Medications Medication Sig Dispense Refill Levothyroxine Sodium 112 MCG Oral Tablet (Levoxyl) [...] MOUTH IN THE MORNING 100 Tablet 1 SELSUN 2.5 % EX SHAM alternate with J&J baby shampoo 1 2 Fluocinonide 0.05 % ointment Apply topically to affected area 2 times a day. 30 g 1 No current facility-administered medications for this visit. The patient's medication list was reviewed and updated as needed. Past Medical History: Diagnosis Date Benign neoplasm of colon 03/25/2007 adenomatous trissue-repeat in 3 years BPH without obstruction/lower urinary tract symptoms HTN, goal below 140/90 08/14/2011 Malignant neoplasm of other specified sites of bladder 09/13/2006 biiopsy of bladder Malignant neoplasm of urinary bladder (HCC) 09/27/2023 Phlebitis and thrombophlebitis of other deep vessels of lower extremities 10/25/2005 R DVT- post TURBT Uric acid urolithiasis Past Surgical History: Procedure Laterality Date BLADDER SURGERY, W/FULGURAT/TRACER TURBT 10/02 COLONOSCOPY W/ LESION REMOVAL, SNARE 03/25/2007 repeat 3yrs adenomatous tissue COLONOSCOPY, DIAGNOSTIC (RECTUM) 04/20/2010 diverticulosis repeat in 5 yrs COLONOSCOPY, DIAGNOSTIC (RECTUM) 11/05/2013 COLONOSCOPY FLEXIBLE PROXIMAL DIAGNOSTIC performed by Reyes Mahmood MD at END[facility] COLONOSCOPY, DIAGNOSTIC (RECTUM) 11/06/2017 adenomatous polyps, diverticulosis, repeat 3 yrs/COLONOSCOPY FLEXIBLE PROXIMAL DIAGNOSTIC performedby Reyes Mahmood MD at END[facility]COPY [facility] COLONOSCOPY, DIAGNOSTIC (RECTUM) 04/04/2022 diverticulosis in sigmoid, 1-2mm in ascending, non-bleeding colonic angiodysplastic lesion / biopsies benign adenomatous polyp / COLONOSCOPY FLEXIBLE PROXIMAL DIAGNOSTIC performed by Talia Zheng MD at ENDOSCOPY [facility] INFORMATION BCE 09/28 removed by Mohs REMOVAL OF KIDNEY 1955 left- noncancerous UNLISTED LAPAROSCOPY;HERNIA bilateral Review of patient's allergies indicates: Allergen Reactions Antihistamines, Chlorpheniramine-Type urinary retention Ciprofloxacin itch Guaifenesin urinary retention Influenza Vaccine Levofloxacin Itching and Rash Eye itching, rash Penicillins Family History Problem Relation Name Age of Onset Gastro-intestinal disorder Father colostomy ? colon cancer at age 87 Other (Other) Unknown denies any family history of skin diseases Cancer Brother throat Social History Tobacco Use Smoking status: Never Passive exposure: Never Smokeless tobacco: Never Vaping Use Vaping status: Never Used Substance Use Topics Alcohol use: No Drug use: No Review of Systems Constitutional: Negative for appetite change, fatigue and unexpected weight change. HENT: Negative for congestion, sinus pressure and sore throat. Respiratory: Negative for cough, shortness of breath and wheezing. Cardiovascular: Negative for chest pain, palpitations and leg swelling. Gastrointestinal: Negative for abdominal pain, blood in stool, constipation, diarrhea, nausea and vomiting. Genitourinary: Negative for dysuria, frequency and hematuria. Musculoskeletal: Right knee pain Neurological: Negative for dizziness, syncope and headaches. Psychiatric/Behavioral: Negative for confusion, decreased concentration and sleep disturbance. OBJECTIVE: BP 130/72 | Pulse 66 | Temp 97.7 F (36.5 C) | Resp 16 | Ht 5' 8" (1.727 m) | Wt 180 lb 9.6 oz (81.9 kg) | SpO2 96% | BMI 27.46 kg/m | BSA 1.98 m Physical Exam Vitals and nursing note reviewed. Constitutional: General: He is not in acute distress. Appearance: Normal appearance. He is not toxic-appearing. HENT: Head: Normocephalic and atraumatic. Cardiovascular: Rate and Rhythm: Normal rate and regular rhythm. Heart sounds: Normal heart sounds. No murmur heard. No gallop. Pulmonary: Effort: Pulmonary effort is normal. Breath sounds: Normal breath sounds. No wheezing, rhonchi or rales. Abdominal: General: Bowel sounds are normal. There is no distension. Palpations: Abdomen is soft. Tenderness: There is no abdominal tenderness. Musculoskeletal: Right lower leg: No edema. Left lower leg: No edema. Neurological: Mental Status: He is alert and oriented to person, place, and time. Mental status is at baseline. Motor: No weakness. Gait: Gait normal. Psychiatric: Mood and Affect: Mood normal. Behavior: Behavior normal. Thought Content: Thought content normal. Surgical Risk Scoring Revised Cardiac Risk Index (RCRI) High-risk type of surgery (examples include vascular and any open intraperitoneal or intrathoracic procedures): 0=No History of ischemic heart disease (history of myocardial infarction or positive exercise test, current compliant of chest pain considered to be secondary to myocardia ischemia, use of nitrate therapy, or ECG with pathological Q waves; do not count prior coronary revascularization procedure unless one of the other criteria for ischemic heart disease is present): 0=No History of heart failure: 0=No History of cerebrovascular disease: 0=No Diabetes mellitus requiring treatment with insulin: 0=No Preoperative serum creatinine >2.0 mg/dL (177 micromol/L): 0=No Pt has revised cardiac index score of: No Risk Factors- 0.4% (95% CI: 0.1-0.8) PLAN AND ASSESSMENT: Preoperative general physical examination (Primary) Will await results of Labs, ECG, and CXR scheduled at [facility] next week to see if any additional testing is needed prior to surgery Primary osteoarthritis of right knee Chronic kidney disease, stage 3b (HCC) Unilateral right kidney History of 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 Keanu Paris DO 3:36 PM 10/22/2024 * Makeda Lema LPN - 10/22/2024 2:21 PM EST Patient presents for follow up, voices no complaints. documented in this encounter Plan of Treatment Upcoming Encounters Date Type Department Care Team (Late st Contact Info) Description 02/12/2025 10:40 AM EDT Office Visit Family [address] 293 [place] [address] [facility] [address] 02/18/2025 10:00 AM EDT Office Visit Orthopaedics [facility] [address] [place] [address] Bo Shelton DO [address] [place] [address] 05/19/2025 8:15 AM EDT Office Visit Dermatology [facility] [place] [address] [facility] [place], [place] [address] Naif Toscano MD 200 [facility] [place], [place] [address] 06/02/2025 1:40 PM EDT Office Visit Nephrology, [facility] [address] [facility] [place], [place] [address] Adebayo Hurley MD [address] [facility] [place], [place] [address] Health Maintenance Due Date Last Done Comments Adult Wellness Visit 2006 COVID-19 Vaccine ( season) 2024 01/17/2022, 08/02/2021, 12/01/2020, Additional history exists Albumin/Creatinine Ratio 02/13/2025 024, 01/18/2023, 09/16/2021, Additional history exists CKD PHOS USE SMARTSET 50888 02/13/202501/26, 08/24/2022, 12/01/2021, Additional history exists TSH 02/13/2025 02/14/2024, 12/26, 12/01/2021, Additional history exists Colonoscopy 04/04/2025 04/04/2022, 08/0 04/2022, 11/06/2017, Additional history exists GFR 04/29/2025 10/27/2024, 01/26, 05/24/2023, Additional history exists Depression Screening 10/22/2025 10/22/2024 CKD HGB USE SMARTSET 83104 10/27/202510/27, 02/14/2024, 02/14/2024, Additional history exists DTap/Tdap [...] Not on filedocumented as of this encounter Visit Diagnoses Diagnosis Preoperative general physical examination- Primary Other specified pre-operative examination Primary osteoarthritis of right knee Primary localized osteoarthrosis, lower leg Chronic kidney disease, stage 3b (HCC) Hypothyroidism due to acquired atrophy of thyroid Hypercholesteremia Pure hypercholesterolemia Immune thrombocytopenic purpura (HCC) Immune thrombocytopenic purpura Gouty arthropathy Gouty arthropathy, unspecified History of bladder cancer Personal history of malignant neoplasm of bladder Gastroesophageal reflux disease without esophagitis Esophageal reflux documented in this encounter Care Teams Parts Counter Sales Person Relationship Specialty Start Date End Date Keanu Paris DO [address] [place] [address] PCP - General Internal Medicine 02/07/24 documented as of this encounter
--- OUTSIDE RECORDS SUMMARY | 2024-11-17 06:55 | External Medical Summary | Summary of Care ---
Author Name Unknown Organization [facility] Address [address] [place] [address] Phone [phone] Care Team Providers Care Electrical Controls Assembler Name Role Phone Keanu Paris DO Primary Care Provider [phone] Reason for Visit * Reason Comments Follow Up Encounter Details Date Type Department Care Team (Latest Contact Info) Description 10/22/2024 3:00 PM EST Office Visit Family Practice [address] [place] [address] [place] [phone] Keanu Paris DO [address] [place] [address] Preoperative general physical examination*; Primary osteoarthritis of [...] grade lesion 08/31- TURBT 10/02 [facility] BCG rx x 6 Cysto 04/01, 09/02- bx [facility] Path: custodial current use of ant icoagulant therapy 03/14/2006 [...] mRNA, LNP-s, No Pre serve, 2-Dose Series (H-care) 08/02/2021,12/01/2020,11/10/2020 COVID-19, LNP-s, No Preserve , Tl-sucrose, Ages 12+ (Pfizer) 01/17/2022 Pneumococcal Conjugate Vacci ne, 20-valent ([id number]) 01/18/2023 Pneumococcal Polysaccharide PPV23 (Pneumovax) 01/26/2006 TD [...] PM EDT Labs and studies done at [facility] on 10/27/2024. Reports reviewed ECG: Sinus rhythm [...] performed by Reyes Mahmood MD at [facility] COLONOSCOPY, DIAGNOSTIC (RECTUM) 11/06/2017 adenomatous polyps, diverticulosis, repeat 3 yrs/COLONOSCOPY FLEXIBLE PROXIMAL DIAGNOSTIC performedby Reyes Mahmood MD at [facility] COLONOSCOPY, DIAGNOSTIC (RECTUM) 04/04/2022 diverticulosis in sigmoid, 1-2mm in ascending, non-bleeding colonic angiodysplastic lesion / biopsies benign adenomatous polyp / COLONOSCOPY FLEXIBLE PROXIMAL DIAGNOSTIC performed by Talia Zheng MD at [facility] INFORMATION BCE 09/28 removed by Mohs REMOVAL [...] of Labs, ECG, and CXR scheduled at [facility] next week to see if any additional testing is needed prior to surgery Primary osteoarthritis of right knee Chronic kidney disease, stage 3b (HCC) Unilateral right kidney History of left nephrectomy Hypothyroidism due to acquired atrophy of thyroid Continue Levothyroxine Hypercholesteremia Immune thrombocytopenic purpura (HCC) Gouty arthropathy Continue Allopurinol History of bladder cancer Continue to follow with [facility] Gastroesophageal reflux disease without esophagitis Continue [...] 02/12/2025 10:40 AM EDT Office Visit Family [address] 293 [place] [address] [facility] DO [facility] [address] 02/18/2025 10:00 AM EDT Office Visit Orthopaedics [facility] [address] [place] [address] Bo Shelton DO [address] [place] [address] 05/19/2025 8:15 AM EDT Office Visit Dermatology [facility] [place] [address] [facility] [place], [place] [address] Naif Toscano MD [address] [facility] [place], [place] [address] 06/02/2025 1:40 PM EDT Office Visit Nephrology, [facility] [address] [facility] [place], [place] [address] Adebayo Hurley MD [address] [facility] [place], [place] [address] Health Maintenance Due Date Last Done Comments Adult Wellness Visit 2006 COVID-19 Vaccine ( season) 2024 01/17/2022, 08/02/2021, 12/01/2020, Additional history exists Albumin/Creatinine Ratio 02/13/2025 024, 01/18/2023, 09/16/2021, Additional history exists CKD PHOS USE SMARTSET 08351 02/13/202501/26, 08/24/2022, 12/01/2021, Additional history exists TSH 02/13/2025 02/14/2024, 12/26, 12/01/2021, Additional history exists Colonoscopy 04/04/2025 04/04/2022, 08/0 04/2022, 11/06/2017, Additional history exists GFR 04/29/2025 10/27/2024, 01/26, 05/24/2023, Additional history exists Depression Screening 10/22/2025 10/22/2024 CKD HGB USE SMARTSET 38998 10/27/202510/27, 02/14/2024, 02/14/2024, Additional history exists DTap/Tdap [...] reflux documented in this encounter Care Teams Electrical Controls Assembler Relationship Specialty Start Date End Date Keanu Paris DO [address] [place] [address] PCP - General Internal Medicine 02/07/24 documented as of this encounter
--- OUTSIDE RECORDS SUMMARY | 2024-11-17 06:56 | External Medical Summary | Summary of Care ---
Author Name Unknown Organization [facility] Address [address] [facility] [place] [address] Phone [phone] Care Team Providers Care Lead Business Systems Analyst Name Role Phone Keanu Paris DO Primary Care Provider [phone] Reason for Visit * Reason Comments Follow Up Right shoulder Encounter Details Date Type Department Care Team (Latest Contact Info) Description 10/29/2024 10:00 AM EST Office Visit Orthopaedics [facility] [address] [place] [phone] Bo Shelton DO [address] [place] [...] T1 high grade lesion 08/31- TURBT 10/02 [facility] BCG rx x 6 Cysto 04/01, 09/02- bx [facility] Path: intermodal customer service current use of ant icoagulant therapy 03/14/2006 [...] (Pfizer) 01/17/2022 Pneumococcal Conjugate Vacci ne, 20-valent ([id number]) 01/18/2023 Pneumococcal Polysaccharide PPV23 (Pneumovax) 01/26/2006 TD [...] - 10/29/2024 10:00 AM EST Soy Estevez [id number] Soy Estevez is a 83 year old male who presents for follow up to [facility] for right shoulder injury/pain left shoulder pain. Initial consult requested by Keanu Paris DO. Soy Estevez is here with his/her . 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 Grammatical errors, random [...] Shelton DO Sports Medicine Primary Care Orthopaedics [facility] [address] [facility] [address] documented in this encounter Nursing Notes * Nuria Batista MED ASSIST - 10/29/2024 10:19 AM EST Repeat right GH inj. documented in this encounter Plan of Treatment Upcoming Encounters Date Type Department Care Team (Late st Contact Info) Description 02/12/2025 10:40 AM EDT Office Visit Family [facility] [address] [facility] [place] [address] [place] [address] Keanu Paris DO [address] [place] [address] 02/18/2025 10:00 AM EDT Office Visit Orthopaedics [facility] [address] [place] [phone] Bo Shelton DO [address] [place] [phone] 05/19/2025 8:15 AM EDT Office Visit Dermatology [facility] [address] [facility] [place] [address] Naif Toscano MD [address] [facility] [place] [address] 06/02/2025 1:40 PM EDT Office Visit Nephrology, [facility] [address] [facility] [place] [address] Adebayo Hurley MD [address] [facility] [place] [address] Health Maintenance Due Date Last Done Comments Adult Wellness Visit 2006 COVID-19 Vaccine ( season) 2024 01/17/2022, 08/02/2021, 12/01/2020, Additional history exists GFR 08/15/2024 02/14/2024, 04/28, 01/18/2023, Additional history exists Albumin/Creatinine Ratio 02/13/2025 024, 01/18/2023, 09/16/2021, Additional history exists CKD HGB USE SMARTSET 65098 02/13/202502/13, 02/14/2024, 01/18/2023, Additional history exists CKD PHOS USE SMARTSET 59878 02/13/202501/26, 08/24/2022, 12/01/2021, Additional history exists TSH [...] Shelton DO Sports Medicine Primary Care Orthopaedics [address] [address] Procedure Note Bo Shelton DO - 10/29/2024 [...] Shelton DO Sports Medicine Primary Care Orthopaedics [facility] [address] [facility] [address] us Bo Shelton DO RAD ULTRASOUND Final [...] Left documented in this encounter Care Teams Lead Business Systems Analyst Relationship Specialty Start Date End Date Keanu Paris DO [address] [facility] [place] [address] PCP - General Internal Medicine 02/07/24 documented as of this encounter
--- OUTSIDE RECORDS SUMMARY | 2024-11-17 06:56 | External Medical Summary | Summary of Care ---
Author Name Unknown Organization [facility] Address [address] [facility] [place] [address] Phone [phone] Care Team Providers Care Chief Engineer Waterworks Name Role Phone Keanu Paris DO Primary Care Provider [phone] Reason for Visit * Reason Comments Follow Up Right shoulder Encounter Details Date Type Department Care Team (Latest Contact Info) Description 10/29/2024 10:00 AM EST Office Visit Orthopaedics [facility] [address] [place] [phone] Bo Shelton DO [address] [place] [...] T1 high grade lesion 08/31- TURBT 10/02 [facility] BCG rx x 6 Cysto 04/01, 09/02- bx [facility] Path: brass burnisher current use of ant icoagulant therapy 03/14/2006 [...] (Pfizer) 01/17/2022 Pneumococcal Conjugate Vacci ne, 20-valent ([id number]) 01/18/2023 Pneumococcal Polysaccharide PPV23 (Pneumovax) 01/26/2006 TD [...] - 10/29/2024 10:00 AM EST Soy Estevez [id number] Soy Estevez is a 83 year old male who presents for follow up to [facility] for right shoulder injury/pain left shoulder pain. Initial consult requested by Keanu Paris DO. Soy Estevez is here with his/her . 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 Grammatical errors, random [...] Shelton DO Sports Medicine Primary Care Orthopaedics [facility] 132 [facility] [address] documented in this encounter Nursing Notes * Nuria Batista MED ASSIST - 10/29/2024 10:19 AM EST Repeat right GH inj. documented in this encounter Plan of Treatment Upcoming Encounters Date Type Department Care Team (Late st Contact Info) Description 02/12/2025 10:40 AM EDT Office Visit Family [facility] [address] [facility] [place] [address] [place] [address] Keanu Paris DO 293 [place] [address] 02/18/2025 10:00 AM EDT Office Visit Orthopaedics [facility] [address] [place] [phone] Bo Shelton DO [address] [place] [phone] 05/19/2025 8:15 AM EDT Office Visit Dermatology [facility] 200 [facility] [place] [address] Naif Toscano MD 200 [facility] [place] [address] 06/02/2025 1:40 PM EDT Office Visit Nephrology, [facility] [address] [facility] [place] [address] Adebayo Hurley MD 200 [facility] [place] [address] Health Maintenance Due Date Last Done Comments Adult Wellness Visit 2006 COVID-19 Vaccine ( season) 2024 01/17/2022, 08/02/2021, 12/01/2020, Additional history exists GFR 08/15/2024 02/14/2024, 04/28, 01/18/2023, Additional history exists Albumin/Creatinine Ratio 02/13/2025 024, 01/18/2023, 09/16/2021, Additional history exists CKD HGB USE SMARTSET 67639 02/13/202502/13, 02/14/2024, 01/18/2023, Additional history exists CKD PHOS USE SMARTSET 55205 02/13/202501/26, 08/24/2022, 12/01/2021, Additional history exists TSH [...] Shelton DO Sports Medicine Primary Care Orthopaedics [address] [address] Procedure Note Bo Shelton DO - 10/29/2024 [...] Shelton DO Sports Medicine Primary Care Orthopaedics [facility] 132 [facility] [address] us Bo Shelton DO RAD ULTRASOUND Final [...] Left documented in this encounter Care Teams Chief Engineer Waterworks Relationship Specialty Start Date End Date Keanu Paris DO [address] [facility] [place] [address] PCP - General Internal Medicine 02/07/24 documented as of this encounter
[2024-11-17 07:18] LABS: Basophils # (auto) 0.06 K/uL (0.00-0.20); Basophils % (auto) 0.8 %; Eosinophils # (auto) 0.08 K/uL (0.00-0.50); Eosinophils % (auto) 1.1 %; Hematocrit (blood only) 42.4 % (42.0-52.0); Hemoglobin 13.8 g/dl (14.0-18.0); Immature Granulocytes # (auto) 0.03 K/uL (0.01-0.20); Immature Granulocytes % (auto) 0.4 %; Lymphocytes # (auto) 1.29 K/uL (1.20-3.40); Lymphocytes % (auto) 17.1 %; Mean Corpuscular Hemoglobin 28.1 pg (25.0-34.0); Mean Corpuscular Hgb Conc 32.5 g/dL (32.0-36.0); Mean Corpuscular Volume 86.4 fL (80.0-100.0); Mean Platelet Volume 10.7 fL (9.4-12.4); Monocytes # (auto) 0.59 K/uL (0.11-0.59); Monocytes % (auto) 7.8 %; Neutrophils % (auto) 72.8 %; Platelet Count 90 K/uL (130-400); RDW Coefficient of Variation 14.4 % (11.5-14.5); RDW Standard Deviation 44.6 fL (36.4-46.3); Red Blood Count 4.91 M/uL (4.70-6.10); White Blood Count 7.55 K/ul (4.8-10.8)
[2024-11-17] MEDS: LR 500ML BOLUS, THEN 15ML/HR IV SCH (07:30)
[2024-11-17] MEDS: LR 60ML/HR IV SCH (07:30)
[2024-11-17] MEDS ORDERED: fentaNYL citrate PF 100 MCG/2 ML VIAL ONE (07:34)
[2024-11-17] MEDS ORDERED: MIDAZOLAM HCL 1 MG/ML 2ML VIAL ONE (07:34)
[2024-11-17] MEDS ORDERED: PROPOFOL IV EMULSION 10 MG/ML 100 ML VIAL IV ONE (07:34)
[2024-11-17] MEDS: CeleBREX 200 MG CAP PO SCH (07:35)
[2024-11-17] MEDS: ACETAMINOPHEN 500 MG TAB PO SCH ×2 (07:35→18:04)
[2024-11-17] MEDS: METOCLOPRAMIDE HCL 10 MG TABLET PO SCH (07:35)
[2024-11-17] MEDS: FAMOTIDINE 20 MG TAB PO SCH (07:35)
[2024-11-17] MEDS: dexAMETHasone**PF** 10 MG/ML VIAL IV SCH (07:36)
[2024-11-17] MEDS ORDERED: DEXAMETHASONE SOD INJ 4 MG/ML VIAL ONE (07:39)
[2024-11-17] MEDS ORDERED: ONDANSETRON INJ 2 MG/ML 2 ML VIAL ONE (07:39)
[2024-11-17] MEDS ORDERED: HYDROmorphone INJ 1 MG/ML SYRINGE IV PRN (08:05)
[2024-11-17] MEDS ORDERED: ATROPINE SULFATE 0.1 MG/ML 10ML SYR IV PRN (08:05)
[2024-11-17] MEDS ORDERED: ONDANSETRON INJ 2 MG/ML 2 ML VIAL IV PRN ×2 (08:05→15:12)
[2024-11-17] MEDS ORDERED: ePHEDrine sulfate 50 MG/ML AMP IV PRN (08:05)
--- NOTE | 2024-11-17 08:54 | History & Physical Bridge Note ---
Date of Service November 17, 2024 History & Physical Bridge Note I have examined the patient, reviewed the History & Physical and in the interval since the performance of the History & Physical I have noted the following changes of clinical significance: no changes noted
[2024-11-17] MEDS: ceFAZolin 2000MG 2,000 MG/15 ML SYR IV SCH ×2 (09:25→18:11)
[2024-11-17] MEDS ORDERED: KETAMINE HCL 10MG/ML SYR ONE (09:30)
[2024-11-17] MEDS ORDERED: ePHEDrine sulfate 50 MG/5 ML SYR ONE (10:00)
[2024-11-17] MEDS: ORTHO JOINT ANESTHETIC ONE (10:01)
[2024-11-17] MEDS: ROPIV 0.5% 246mg, Ketorolac 30mg, EPINEPHrine 0.5mg in NSS INFIL SCH (10:01)
[2024-11-17] MEDS: TRANEXAMIC ACID 1,000 MG **IV Intra-op IV SCH (10:30)
--- NOTE | 2024-11-17 11:20 | Operative Report ---
PG Post Operative Report Pre & Post Diagnosis Operation Date: 11/17/24 08:50 Pre-Op Diagnosis: Right Knee Medial Compartment Arthritis Post-Op Diagnosis: Right Knee Medial Compartment Arthritis I identified the patient and participated in the time-out.: Yes Procedure Operation Date: 11/17/24 08:50 Actual Procedures p Right Unicompartmental Knee Arthroplasty(Right) - Norm Mccoy MD Surgeon Norm Mccoy MD Electrophysiology Technician Paulie Verduzco PA-C Estimated Blood Loss 25 Findings Consistent with Post-Op Diagnosis Operative findings revealed full-thickness grade 4 [id number] disease of the medial femoral condyle medial tibial plateau. Not really any bony eburnation but full-thickness cartilage loss. Moderate-sized joint effusion. Slight varus deformity to his knee. He had fairly minimal lateral and patellofemoral compartment disease. ACL was intact. Specimens Right knee sent for pathology. 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 He failed conservative measures. X-rays show progressive medial compartment arthritis. His symptoms localized medial side of his knee. Fairly minimal disease elsewhere. He elects proceed with right partial knee replacement. Description of Procedure Operative implants consisted of: 1. Biomet Granite size medium femoral component. 2. Biomet Granite right medial size D tibial tray. 3. 4 mm mobile-bearing polyethylene insert. The patient was taken the op room, identified, placed on the operating table in the supine position. All contact areas were appropriately padded. IV antibiotics fibra anesthesia team. A spinal anesthetic and adductor canal block had been provided in the holding area. Right thigh high tourniquet was then placed. The right lower extremity was then prepped and draped in usual sterile fashion. The right leg was elevated and exsanguinated with use of an Esmarch and a turn was placed at 300 mmHg. An anterior approach to the right knee was then performed to a longitudinal incision centered over the patella tendon area. The 6 band of the incision was from the superior pole patella to just medial to the tibial tubercle. Sharp dissection was got through subcutaneous tissue down the extensor mechanism. Subcutaneous tissues were mobilized. A medial parapatellar arthrotomy incision was made. Some slight subperiosteal dissection was carried out medially. Great care was taken to protect the medial collateral ligament. The fat pad was resected. I then examined the lateral part of the knee and it looked pretty well-preserved. His ACL was intact. Patellofemoral disease is fairly mild. We elected proceed with partial knee replacement. The osteotome was used to remove the osteophytes from the intercondylar notch area. The femur was sized to a size medium. The medium spoon was placed. The external tibial alignment jig was then placed on the anterior face the tibia and attached to the medial spoon. A 4G clamp was used. The tibial guide was pinned in place. The proximal tibial cut was made and the tibia sized to a size D. Attention drawn the femur. The distal femur examined the sharp drop with intramedullary canal bladimir was placed. The medium femoral template was placed and attached to the IM bladimir. The holes were drilled for the femoral component. The posterior cutting guide was placed and a posterior cut was made. The 0 spigot was used to milled the distal femur. I then resected the medial meniscus. We then trialed the knee and the 4 insert fit appropriately in flexion and into and extension. All implants were removed. A 2 spigot was placed. Distal femur was milled. We did trial the knee again and the 4 feeler gauge fit most appropriately. Was a little bit tight. We elect to place these components. All trials were removed. The cement drill was used to create some defects in the distal femur for cement interdigitation. The femoral preparation guide was placed in the anterior femur was milled and the posterior osteophyte was removed. The tibial tray was pinned in place. The toothbrush blade saw was used to create the defect for the keel. The knee was then trialed with the trial components 1 last time. With the trial components in the 4 feeler gauge felt a little bit tight and the 3 was a little on the loose side. We elected to wait until implantation and make a decision on this. All trial implants were removed. I irrigated extensively. We injected locally with 100 cc of Ortho mix. A single batch Palacos G cement was mixed. A Biomet Granite right medial size D tibial tray was then cemented in place followed by the medium femoral component. All extraneous cement was removed. The 4 feeler gauge was then placed depressurized the cement in the knee was brought out into about 30 degrees short of full extension till cement hardened. Final cement check was then performed. We then trialed the knee and the 4 insert seemed to fit most appropriate. The 3 just seems a little loose. We placed the permanent for insert. It was a little on the snug side but 1 cm insert was then it tracked appropriately and appeared well-balanced. Attention then drawn toward closing. Wounds irrigated coconuts pulsatile lavage solution. The tourniquet was let down for final turn time 66 minutes. Hemostasis assured use electrocautery. Extensor Meclomen closed with #1 Vicryl suture in a ofjpyi-xv-xjetk fashion. Extensor Meclomen was checked intact with subcutaneous tissue then closed with 2 Dexon suture in buried erupted fashion skin was closed skin nora. Leg was then cleaned and dried and sterile dressed with Xeroform, 4 fours, sterile cast padding, Gelacio bandage were applied. Patient transferred to the recovery room in stable condition. Patient tolerated procedure well and there were no complications. I attest to the content of the Intraoperative Record and any orders documented therein. Any exceptions are noted below.
--- NOTE | 2024-11-17 11:37 | XRay Report ---
XR knee RT 1 or 2V routine CLINICAL HISTORY: Surgical Post Op COMPARISON: None FINDINGS: Medial right knee hemiprosthesis shows no heart or complication. There is expected soft ti ssue gas. Skin nora are present. IMPRESSION: Unremarkable postoperative exam. ACT 112: Negative or not required by law. Electronically signed by: Paddy Cloud M.D. 11/17/2024 11:35 AM
--- NOTE | 2024-11-17 11:49 | Anesthesiology Progress Note ---
Date of Service November 17, 2024 Anesthesia Post Procedure Vital Signs Vital Signs: Temp Pulse Pulse Resp BP Pulse Ox O2 Del Method 11/17/24 11:45 36.4 C L 82 16 127/61 96 Room Air 11/17/24 11:35 80 12 113/56 L 96 Room Air 11/17/24 11:25 80 18 117/58 L 97 Oxymask 11/17/24 11:14 36 C L 85 16 117/69 94 Oxymask 11/17/24 06:59 36.5 C 77 20 102/69 99 Room Air O2 Flow Rate 11/17/24 11:45 11/17/24 11:35 11/17/24 11:25 3 11/17/24 11:14 6 11/17/24 06:59 Pain Intensity Right Knee: Pain Intensity: 2 Transfer of Care Handoff Completed per policy Notes Mental Status: alert / awake / arousable Patient Amnestic to Procedure: Yes Nausea / Vomiting: adequately controlled Pain: adequately controlled Airway Patency, RR, SpO2: stable & adequate BP & HR: stable & adequate Hydration State: stable & adequate Neuraxial Anesthesia: was administered and sensory block is resolving Anesthetic Complications: no major complications apparent
[2024-11-17] MEDS ORDERED: NO NSAIDS SCH (15:12)
[2024-11-17] MEDS ORDERED: MAGNESIUM HYDROXIDE SUSP 30 ML UDC PO PRN (15:12)
[2024-11-17] MEDS ORDERED: METOCLOPRAMIDE HCL INJ 5 MG/ML 2 ML VIAL IV PRN (15:12)
[2024-11-17] MEDS ORDERED: ALUMINUM/MAGNESIUM SUSP 30 ML UDC PO PRN (15:12)
[2024-11-17] MEDS ORDERED: NALOXONE HCL 0.4 MG/1 ML VIAL/CARP IV PRN (15:12)
[2024-11-17] MEDS ORDERED: HYDROmorphone INJ 0.5 MG/0.5 ML SYR IV PRN (15:12)
[2024-11-17] MEDS ORDERED: bisacodyL 10 MG SUPP PR PRN (15:12)
[2024-11-17] MEDS: TRANEXAMIC ACID / 0.7% NACL 1,000 MG/100 ML BAG IV SCH (18:04)
[2024-11-17] MEDS: ASCORBIC ACID 500 MG TAB PO SCH (18:05)
[2024-11-17] MEDS: SENNA 8.6 MG TAB PO SCH (20:28)
[2024-11-17] MEDS: DOCUSATE SODIUM 100 MG CAP PO SCH (20:28)
[2024-11-17] MEDS: ASPIRIN 81 MG ECTAB PO SCH (20:49)
[2024-11-17] MEDS ORDERED: SENNA 8.6 MG TAB PO SCH (21:00)
[2024-11-18] MEDS: oxyCODONE HCL IR 5 MG TAB (IMMEDIATE RELEASE) PO PRN (05:25)
[2024-11-18] MEDS: LEVOTHYROXINE SODIUM 112 MCG TABLET PO SCH (05:26)
--- NOTE | 2024-11-18 06:30 | Orthopedic Progress Note ---
Date of Service November 18, 2024 Assessment & Plan (1) Status post right partial knee replacement: Pain controlled. PT/OT, wbat dvt prophylaxis: teds, scd's, aspirin d/c planning: home with home health today after therapy Subjective . 84 year old patient POD 1 from right partial knee replacement. Doing well. Had bowel movement. Pain controlled. Slept well Review of Systems All systems reviewed & are unremarkable except as noted in HPI & below. Physical Exam .alert and oriented. NAD VSS Right leg: dressing clean, dry, intact. Able to do SLR, DF, PF. NVI Results & Data Results & Data Laboratory Results . Diagnostic Findings . PG Care Time/CCT Total # of Minutes Spent Total Time Spent with Patient: Total time spent is greater than 50% in coordination of care (as documented) at patient's floor/unit and/or counseling patient: Coding Level of Care Code 90441 Post Operative Follow-Up Diagnoses Status post right partial knee replacement Z96.651
[2024-11-18] MEDS: MULTIVITAMIN TAB PO SCH (07:41)
[2024-11-18] MEDS: PANTOprazole 40 MG TAB PO SCH (07:41)
[2024-11-18] MEDS: allopurinoL 300 MG TAB PO SCH (07:41)
[2024-11-18] MEDS: TAMSULOSIN HCL 0.4 MG CAP PO SCH (07:41)
[2024-11-18] MEDS: dexAMETHasone 10 MG in SYRINGE 0 ML IV SCH (07:41)
[2024-11-18 07:46] LABS: Hematocrit (blood only) 35.2 % (42.0-52.0); Hemoglobin 11.8 g/dl (14.0-18.0); Mean Corpuscular Hemoglobin 28.4 pg (25.0-34.0); Mean Corpuscular Hgb Conc 33.5 g/dL (32.0-36.0); Mean Corpuscular Volume 84.6 fL (80.0-100.0); Mean Platelet Volume 9.8 fL (9.4-12.4); Platelet Count 86 K/uL (130-400); RDW Coefficient of Variation 14.2 % (11.5-14.5); RDW Standard Deviation 43.6 fL (36.4-46.3); Red Blood Count 4.16 M/uL (4.70-6.10); White Blood Count 10.23 K/ul (4.8-10.8)
[2024-11-18 07:53] VITALS: BP 134/63; PULSE 63; RESP 16; TEMP 97.3; O2SAT 97
[2024-11-18 08:10] LABS: Calcium 8.6 mg/dl (8.6-10.3); Creatinine Clr Calc Pharmacy 29.7 ml/min; Potassium 4.3 mmol/L (3.5-5.1)
[2024-11-18] MEDS ORDERED: [UNRECOGNIZED DRUG - OTHER] PO SCH (09:00)
--- OUTSIDE RECORDS SUMMARY | 2024-11-18 10:35 | External Medical Summary | Summary of Care ---
Author Name Unknown Organization [facility] Address [address] [place] [address] Phone [phone] Care Team Providers Care Gear Coding Machine Operator Name Role Phone Keanu Paris DO Primary Care Provider [phone] Reason for Visit * Reason Onset Date Comments Advice 08/18/2024 Encounter Details Date Type Department Care Team (Late st Contact Info) Description 08/18/2024 Telephone Access Center, [place] [address] [facility] *DO NOT REMOVE THIS DEPARTMENT* [place], [place] [id number] Services, Scheduling [address] [place] [address] Advice Allergies Active Allergy Reactions Criticality Noted Date Comments Antihistamines, Chlorpheniramine-Type 02/11/2002 urinary retention Ciprofloxacin 07/05/2009 itch Guaifenesin 02/11/2002 urinary retention Influenza Vaccine 06/08/2010 Levofloxacin Itching,Rash 02/23/2011 Eye itching, rash Penicillins 12/31/1999 documented as of this encounter (statuses as of 11/18/2024) Medications SELSUN 2.5 % EX SHAMIndications: Seborrheic [...] DAY IN THE MORNING 100 Tablet 1 11/13/2024 12:13 PM EDT 4 Active Pantoprazole Sodium 40 MG Oral Tablet Delayed Release (Protonix)Indica tions:Gastroesop hageal reflux disease without esophagitis TAKE ONE TABLET BY MOUTH IN THE MORNING 100 Tablet 1 11/13/2024 12:13 PM EDT 4 Active documented as of this encounter (statuses as of 11/18/2024) Active Problems Problem Noted Date Diagnosed Date [...] as of this encounter (statuses as of 11/18/2024) Resolved Problems Problem Noted Date Diagnosed Date [...] 30-59 ml/min) 10/08/2007 12/07/2017 Overview (10/08/2007): GFR 407 53.9 MALIG GREG BLADDER NEC 09/17/20062014 Overview (09/17/2006): Bladder CA T1 high grade lesion 08/31- TURBT 10/02 [facility] BCG rx x 6 Cysto 04/01, 09/02- bx [facility] 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 icoagulant therapy 03/14/2006 [...] as of this encounter (statuses as of 11/18/2024) Immunizations Name Administration Dates Next Due COVID-19 mRNA, LNP-s, No Pre serve, 2-Dose Series (Pfizer) 08/02/2021,12/01/2020,11/10/2020 COVID-19, LNP-s, No Preserve , Tl-sucrose, Ages 12+ (Pfizer) 01/17/2022 Pneumococcal Conjugate Vacci ne, 20-valent ([id number]) 01/18/2023 Pneumococcal Polysaccharide PPV23 (Pneumovax) 01/26/2006 TD [...] encounter Miscellaneous Notes * Telephone Encounter - Kristel Swanson OSA - 08/18/2024 9:10 AM EST PT was in to see Dr Shelton on 08/12/24 and was told to give him an update today. He states that it's a lot better has no pain at all. documented in this encounter Plan of Treatment Upcoming Encounters Date Type Department Care Team (Late st Contact Info) Description 02/12/2025 10:40 AM EDT Office Visit Family Practice [address] [place] [address] [address] [place] [address] Keanu Paris, DO [address] [facility] [place] [address] 02/18/2025 10:00 AM EDT Office Visit Orthopaedics [facility] [address] [place] [phone] Bo Shelton, [address] [place] [phone] 05/19/2025 8:15 AM EDT Office Visit Dermatology [facility] 200 [facility] [place], [place] [address] Naif Toscano MD [address] [facility] [place] [address] 06/02/2025 1:40 PM EDT Office Visit Nephrology, [facility] [address] [facility] [place] [address] Adebayo Hurley MD [address] [facility] [place], [place] [address] Health Maintenance Due Date Last Done Comments Adult Wellness Visit 2006 COVID-19 Vaccine ( season) 2024 01/17/2022, 08/02/2021, 12/01/2020, Additional history exists Albumin/Creatinine Ratio 02/13/2025 024, 01/18/2023, 09/16/2021, Additional history exists CKD PHOS USE SMARTSET 97632 02/13/20252 , 08/24/2022, 12/01/2021, Additional history exists TSH 02/13/2025 02/14/2024, 12/26, 12/01/2021, Additional history exists Colonoscopy 04/04/2025 04/04/2022, 08/0 04/2022, 11/06/2017, Additional history exists GFR 04/29/2025 10/27/2024, 01/26, 05/24/2023, Additional history exists Depression Screening 10/22/2025 10/22/2024 CKD HGB USE SMARTSET 43578 10/27/202510/27, 02/14/2024, 02/14/2024, Additional history exists DTap/Tdap [...] filedocumented as of this encounter Care Teams Gear Coding Machine Operator Relationship Specialty Start Date End Date Keanu Paris DO [address] [place] [address] PCP - General Internal Medicine 02/07/24 documented as of this encounter
--- NOTE | 2024-11-20 11:24 | Discharge Summary ---
Date of Service November 20, 2024 Admission HPI (Per Admitting) . 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 Over the past year and a half he has developed increased pain discomfort in the right knee. He had multiple injections which have not provided any long- term relief. 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 He was seen by Dr. Torres at [place] and scheduled for surgery but never got a call back. Pain has been persistent. Is getting worse. Is limiting his activities. He like to have this fixed. Admission Exam (Per Admitting) . Physical examination reveals a pleasant elderly male. Looks in pretty good health. Examination of the right knee reveals the patient to walks with slight varus alignment to his knee. Got a little bony hypertrophy medially. He is tender over the medial joint line. Small knee effusion. Range of motion 5-1 25. No instability. No pain with hip motion. Principal Diagnosis Same as "Discharge Diagnosis" noted below under Discharge Instructions. Discharge Exam .alert and oriented. NAD VSS Right leg: dressing clean, dry, intact. Able to do SLR, DF, PF. NVI Discharge Data Procedures Performed Operation Date: 11/17/24 08:50 Actual Procedures p Right Unicompartmental Knee Arthroplasty(Right) - Norm Mccoy MD Ordered Studies 11/17/24 05:00 US - OR guided needle placemen Routine Hospital Course (1) Status post right partial knee replacement: This is a 84 year old patient admitted on 11/17/24 and underwent partial knee replacement. He tolerated the procedure well and there were no complications. Transferred to the PACU post op and later to the orthopedic floor for further care. He was given ancef for antibiotic prophylaxis. He was also given KANDIS stockings, SCDs, and aspirin for DVT prophylaxis. Hemoglobin, hematocrit, and vital signs were monitored during his hospital stay and remained stable. Did not require any blood transfusions. There were no complications during his hospital stay. By post op day #1 the patient was tolerating a regular diet, pain was reasonably controlled with oral pain medicine, and he was participating in physical therapy. On post op day #1 the patient was discharged home and set up with home health care. He was given printed discharge instructions including prescriptions for extra strength tylenol, aspirin, cefadroxil, zofran, senokot, and oxycodone. Continue physical therapy, weight bearing as tolerated. Continue KANDIS stockings. Follow up approximately 2 weeks post op or sooner if there are problems or concerns. PG Care Time/CCT Total # of Minutes Spent Total Time Spent with Patient: Total time spent is greater than 50% in coordination of care (as documented) at patient's floor/unit and/or counseling patient: Discharge Plan Discharge Items Patient Disposition: Home - Home Health Services Reason For Visit: Right Knee Osteoarthritis Discharge Diagnosis: right partial knee replacement Activity: Per Instructions section Non-emergency contact: Surgeon Call non-emergency contact if: your pain is not controlled, your pain is worsening, you have a fever, your wound has increased redness and your wound has increased drainage Follow-up/Referrals: Keanu Paris DO [Primary Care Provider] - Diet: Regular Addtl Attending Provider Instructions: ACTIVITY RECOMMENDATIONS: Diet: * You may resume previous diet. Physical Therapy: * You will go to physical therapy three times each week for four to six weeks after your surgery in order to regain your knee range of motion and to retrain your knee to work properly. * It is just as important to make sure you are getting your knee perfectly straight as it is to regain your knee bend. * Taking a pain pill an hour before therapy can help you have a more productive and comfortable therapy session. Home Exercise: * You were shown a series of exercises (heel props, heel slides, etc.) in the hospital. Do these exercises three to four times each day including the exercises you were shown in physical therapy. Walking: * Get up and walk several times each day. For the first four weeks, try not to stand or walk for more than one hour at a time. If you do stand or walk for more than one hour, you will not hurt anything, but your knee and leg will likely swell. * As you feel comfortable, you may change from the walker or crutches to a cane and then to independent walking. MEDICATIONS: New Medicine: * You will likely be taking one or more of these medications: 1. Oxycodone - A quick and shorter-acting pain medication. Take one to two tablets every six hours to lessen your pain. 2. Aspirin - Thins your blood to lessen the chance of forming a blood clot. * The most common side effects of pain medicine and iron are nausea and constipation. If nausea or constipation is too much of a problem or if you have any questions about your new medicines or doses, call [facility] at . We will try to help you manage these issues. "VERY IMPORTANT TO READ AND REVIEW" Pain: * The immediate post-operative period after knee replacement surgery is often quite painful. * You are given a prescription for pain medicine. You should take it, as directed, when you need it, especially before physical therapy and before going to bed. Pain that interferes with sleep is very common and can last several months. * You will likely need pain medicine for the first four to six weeks. It will not stop all of the pain. The pain will lessen and as you feel better, you may change to milder pain medicine such as Tylenol. * The most common side effects of pain medicine are nausea and constipation, so don't take more than you need. SPECIAL CARE INSTRUCTIONS: TEDs/Elastic Stockings: * The white elastic stockings help limit swelling and prevent blood clots from forming in your legs. The more you wear them, the more they work. * Wear them for six weeks after knee replacement surgery and four weeks after partial knee replacement. Incision Site Care: * Remove dressing postoperative day 2 and then shower. Keep direct shower pressure off the incision site. * After showering, cover nora with dry gauze and change daily or more frequently if the dressing is getting saturated with drainage. * Use the KANDIS stockings to hold dressing in place. DO NOT apply tape on the skin. * May completely stop using bandage if wound is dry and no drainage * [place] are removed between 2 and 3 weeks post-op. If your follow-up appointment is made before 2 weeks, please have your appointment re- scheduled. It is too early to remove the nora. Prevention of Infection: * Take antibiotics one hour before any dental cleaning, dental work, urological procedure, gastrointestinal procedure or any invasive surgery in order to prevent your new joint from getting infected. * You may get the antibiotics from the doctor performing the procedure or you may call our office at [phone] before and we will call in a prescription to the pharmacy of your choice. Things to Watch For: * Drainage from the incision site that occurs more than one week after your surgery. * Severely increased knee/leg pain or swelling. * Increased redness at the incision site. * Fever above 102 degrees Fahrenheit. * Unusual chest pain or shortness of breath. * Unusual pain or burning with urination. Call [facility] at [phone] with any of the above problems or if you have any questions about your medicines or recovery. FOLLOW UP VISIT: Make an appointment to see your doctor for approximately two weeks after surgery for a progress check and staple removal by calling the office at [phone]. Pending Studies at Discharge: No Stand-Alone Forms: My [facility], Smoking Cessation Medications and DC Order Prescriptions: Continued oxycodone 5 mg tablet 5 mg PO Q6 PRN (Reason: pain) Qty: 30 0RF Rx Instructions: Take as needed for pain ondansetron 4 mg tablet,disintegrating 4 mg PO Q8 PRN (Reason: nausea) Qty: 20 1RF Rx Instructions: Take as needed for nausea acetaminophen [Tylenol Extra Strength] 500 mg tablet 1,000 mg PO TID 30 Days Qty: 180 0RF Rx Instructions: Take 3 times per day to lessen pain. sennosides [Senokot] 8.6 mg tablet 8.6 mg PO BID 14 Days Qty: 28 0RF Rx Instructions: Take two times a day to prevent/treat constipation aspirin [Erika Low Dose Aspirin] 81 mg tablet,delayed release (DR/EC) 81 mg PO BID 30 Days Qty: 60 0RF Rx Instructions: Take to prevent blood clots tamsulosin [Flomax] 0.4 mg capsule 0.4 mg PO DAILY Qty: 7 0RF Rx Instructions: Begin night BEFORE surgery to prevent urinary retention cefadroxil 500 mg capsule 500 mg PO BID 7 Days Qty: 14 0RF Rx Instructions: Take 1 cap twice a day to prevent infection allopurinol 300 mg tablet 300 mg PO QAM levothyroxine [Levoxyl] 112 mcg tablet 112 mcg PO QAM pantoprazole 40 mg tablet,delayed release (DR/EC) 40 mg PO QAM Centrum Silver Men [phone] mcg Tablet 1 tab PO QAM Admission Data Admit Date/Time: 11/17/24 11:12 Attending Provider: Norm Mccoy Admit Provider: Norm Mccoy Primary Care Provider: Keanu Paris Other Providers: [facility],Home [facility] Other Interventions: Discharge Summary Assessment (RN) Last Done: 11/18/24 09:47
== END 2024-11-18 13:11 | disposition home health service (06) ==
LOC: PACUINP 06:43 → ASU 06:43 → 3E 16:47
DX: Z88.0 Allergy status to penicillin; E03.9 Hypothyroidism, unspecified; I10 Essential (primary) hypertension; D69.3 Immune thrombocytopenic purpura; Z79.890 Hormone replacement therapy; Z79.899 Other long term (current) drug therapy; N13.8 Other obstructive and reflux uropathy; Z79.82 Long term (current) use of aspirin; N40.1 Benign prostatic hyperplasia with lower urinary tract symptoms; Z85.51 Personal history of malignant neoplasm of bladder; I73.9 Peripheral vascular disease, unspecified; M10.9 Gout, unspecified; M17.11 Unilateral primary osteoarthritis, right knee; Z86.718 Personal history of other venous thrombosis and embolism; Z88.8 Allergy status to other drugs, medicaments and biological substances; K21.9 Gastro-esophageal reflux disease without esophagitis